=== PATIENT | female | born 1940 | race Caucasian/White ===

== ENCOUNTER → 2019-09-05 09:23 | Outpatient (CLI) | payer MEDICARE ==
[2012-01-16 12:06] VITALS: BMI 33.7
[~2019-09-05 09:23] MED LIST: AVAPRO300 MG PO; DILTIAZEM 24HR240 M4 PO; GLUCOTROL 5 MG T5 MG PO; NEURONTIN 300300 MG PO; OXYBUTYNIN CHLOR5 MG PO; ZOLOFT100 MG PO
[2019-09-25 12:54] VITALS: BMI 29.7
== END | disposition home or self-care (01) ==
LOC: D.HCCARDIO 09:23
PROVIDERS: ATTEND Internal Medicine Cardiovascular Disease
DX: I25.10 Atherosclerotic heart disease of native coronary artery without angina pectoris (principal)

== ENCOUNTER 2019-09-25 11:05 | Outpatient (CLI) | payer MEDICARE ==
[~2019-09-25] VITALS: Ht 162.6 cm; Wt 78.6 kg
--- NOTE | ~2019-09-25 | HEMODYNAMI ---
PATIENT:KESHA ROSE MEDICAL RECORD: [id number] : 44 LOCATION:[facility] ADMISSION DATE: 09/25/19 Generatedon:09/25/201915:24 Patient name: KESHA ROSE Patient #: [id number] SSN: [id number] : 1940 Date of study: 09/25/2019 Page: Of Hemodynamic Procedure Report Patient Data Patient Demographics Procedure consent was obtained First Name: KESHA Gender: Female Last Name: MILTON : 1940 Patient #: [id number] Age: 79 year(s) Race: SSN: [id number] Additional ID: [id number] Contact details [address]: [address] [place] [address] rd State: [place] City: [place] Zip code: [address] Past Medical History Allergies: No known allergies Admission Admission Data Admission Date: 09/25/2019 Admission Time: 11:05 Arrival Date: 09/25/2019 Arrival Time: 0:00 Admit Source: Other Insurance Payor: Private health insurance [facility] #: [id number] Height (in.): 64 BSA: 1.83 (m2) Height (cm.): 162.56 BMI: 29.52 (kg/m2) Weight (lbs.): 171.96 Weight (kg.): 78 Lab Results Lab Result Date: 09/25/2019 Lab Result Time: 0:00 Biochemistry Name Units Result Min Max BUN mg/dl 25 --(----)-* 7 18 Creatinine mg/dl 1.4 --(----)*- 0.6 1.3 eGFR ml/min 39 *-(----)-- 90 120 NONAFRICAN CBC Name Units Result Min Max Hematocrit % 42 --(*---)-- 42 54 Hemoglobin g/dl 14.3 --(*---)-- 13.5 17.5 Procedure Procedure Types Cath Procedure Diagnostic Procedure [facility] w/Coron[facility] Procedure Description Procedure Date Procedure Date: 09/25/2019 Procedure Start Time: 15:06 Procedure End Time: 15:22 Procedure Staff Name Function Gregory Peacock MD Performing Physician Veronique Pavon RT Monitor Naa Shultz RT Monitor Timur Gutierrez RN Nurse Dora Graham RT Scrub Indication Angina Procedure Data Cath Procedure Fluoroscopy Diagnostic fluoroscopy Total fluoroscopy Time: 2 time: 2 min min Diagnostic fluoroscopy Total fluoroscopy dose: 451 dose: 451 mGy mGy Contrast Material Contrast Material Type Amount (ml) Isovue 300 65 Entry Location Entry Primary Successful Side Size Upsize Upsize Entry Closure Bermudez ccessful Closure Location (Fr) 1 (Fr) 2 (Fr) Remarks Device Remarks Radial Right 6 Fr Mechanical artery Short Compression Estimated blood loss: 5 ml Diagnostic catheters Device Type Used For End Catheter Placement DIAGNOSTIC [place] 110cm 5 Procedure Fr catheter ([id number]) Procedure Complications No complications Procedure Medications Medication Administration Route Dosage Oxygen etCO2 Nasal cannula 2 l/min Lidocaine 2% added to field 20 Heparin Flush Bag added to field 2 bags (1000units/500ml NS) 0.9% NaCl I.V. 100 ml/hr Radial Cocktail I.A. 1 syringe (Verapamil 2mg/Nitro 400mcg/Heparin 1500units) Versed I.V. 1 mg Fentanyl I.V. 50 mcg Versed I.V. 1 mg Fentanyl I.V. 50 mcg Versed I.V. 1 mg Hemodynamics Rest BSA: 1.83 (m2) HGB: 14.3 (g/dl) O2 Consumption: Estimated: 168.69 (ml/min) O2 Co nsumption indexed: Estimated:92.18 (ml/min/m) Heart Rate: 74 (bpm) Pressure Samples Time Site Value (mmHg) Purpose Heart Use Rate(bpm) 15:09 LV 174/-9,3 Snapshot 88 Gradients Valve Time Site Site Mean SEP/DFP Peak To Heart Use 1 2 (mmHg) (sec/min) Peak Rate (mmHg) (bpm) Aortic 15:10 LV AO 87 Snapshots Pre Cath Intra NCS Post Cath Vital Signs Time Heart Resp SPO2 etCO2 NIBP (mmHg) Rhythm Pain Sedation Rate (ipm) (%) (mmHg) Status Level (bpm) 14:54:27 77 14 97 13.4 178/88(155) NSR 0 (11) 10(A) , No pain 14:58:45 84 15 94 0 170/88(141) NSR 0 (11) 10(A) , No pain 15:03:05 78 14 96 31.5 164/83(128) NSR 0 (11) 10(A) , No pain 15:07:25 78 12 94 35.2 167/82(134) NSR 0 (11) 9(A) , No pain 15:11:43 85 11 95 36.7 142/75(116) NSR 0 (11) 9(A) , No pain 15:15:59 85 21 93 29.2 148/75(107) NSR 0 (11) 9(A) , No pain 15:20:09 84 13 96 15 152/70(115) NSR 0 (11) 10(A) , No pain Medications Time Medication Route Dose Verified Delivered Reason Notes Effectiveness by by 14:57:12 Oxygen etCO2 2 l/min Gregory Buffie used for Nasal Ayush Gutierrez RN procedure cannula 14:57:19 Lidocaine 2% added 20ml Gregory Gregory for local to vial Ayush Peacock MD anesthetic field 14:57:25 Heparin Flush added 2 bags Gregory Gregory used for Bag to Ayush Peacock MD procedure (1000units/500ml field NS) 14:57:32 0.9% NaCl I.V. 100 Gregory Buffie Per ml/hr Ayush Gutierrez RN physician 15:04:37 Versed I.V. 1 mg Gregory Buffie for sedation Ayush Gutierrez RN 15:04:42 Fentanyl I.V. 50 mcg Gregory Buffie for sedation Ayush Gutierrez RN 15:08:28 Radial Cocktail I.A. 1 Gregory Gregory for (Verapamil syringe Ayush Peacock MD vasodilation 2mg/Nitro 400mcg/Heparin 1500units) 15:08:33 Versed I.V. 1 mg Gregory Buffie for sedation Ayush Gutierrez RN 15:08:37 Fentanyl I.V. 50 mcg Gregory Buffie for sedation Ayush Gutierrez RN 15:11:51 Versed I.V. 1 mg Gregory Buffie for sedation Ayush Gutierrez RN Procedure Log Time Note 14:32:41 Informed consent obtained and on chart 14:33:27 Diagnostic Cath Status : Elective 14:39:26 Indication : Angina 14:39:43 Procedure Status Elective Heart Cath (OP). 14:39:46 Gregory Peacock MD sent for patient. Start room use. 14:39:49 Time tracking: Regular hours (M-F 7:00 - 5:00) 14:39:58 Plan of Care:Hemodynamics will remain stable., Cardiac rhythm will remain stable., Comfort level will be maintained., Respiratory function will remain adequate., Patient/ family verbilizes understanding of procedure., Procedure tolerated without complication., Recovers from procedure without complications.. 14:45:21 Patient received from Pre/Post Procedure Room to CCL 2 Alert and oriented. Tansferred to table in Supine position. 14:45:24 Warm blankets applied, and ana hugger turned on for patient comfort. 14:45:24 Correct patient and procedure confirmed by team. 14:45:26 ECG and BP/O2 sat monitors applied to patient. 14:50:18 Patient Height : 64 inches 14:50:34 Patient Weight : 171.96 lbs 14:50:38 Admit Source: Other 14:50:41 Arrival Date: 09/25/2019 12:00:00 AM 14:51:02 Insurance Payor : Private health insurance 14:52:55 Lab Result : Creatinine 1.4 mg/dl 14:52:55 Lab Result : BUN 25 mg/dl 14:52:55 Lab Result : Hematocrit 42 % 14:52:55 Lab Result : Hemoglobin 14.3 g/dl 14:52:55 Lab Result : eGFR NONAFRICAN 39 ml/min 14:53:16 Vital chart was started 14:53:17 Baseline sample Acquired. 14:53:24 Rhythm: sinus rhythm 14:53:30 Full Disclosure recording started 14:53:31 - 14:53:37 H&P Date Dictated: 09/25/2019 H&P Addendum completed by physician on day of procedure. (MUST COMPLETE FOR ALL OUTPATIENTS), New H&P dictated by physician.. 14:53:39 Pre-procedure instructions explained to patient. 14:53:40 Pre-op teaching completed and patient verbalized understanding. 14:54:56 Family in patients room. 14:55:00 Patient NPO since Midnight. 14:55:11 Patient allergic to PENICILLINS/TRICLOSAN 14:55:18 Is the patient allergic to Iodine/contrast media? No. 14:55:20 Was the patient premedicated? Yes 14:55:23 Is patient on blood thinner?No 14:55:40 Patient diabetic? Yes. 14:55:43 If diabetic: On Metformin? No 14:55:47 ----Pre-sedation anethsthesia assessment.---- 14:55:51 Previous problem with sedation/anesthesia? No ? 14:55:54 Snore? Yes 14:55:56 Sleep apnea? No 14:55:59 Deviated septum? No 14:56:00 Opens mouth fully? Yes 14:56:02 Sticks out tongue? Yes 14:56:06 Airway obstruction? No ? 14:56:11 Dentures? No ? 14:56:32 IV patent on arrival in left forearm with 0.9% NaCl at [facility]. 14:56:45 Pre procedure: right dorsailis pedis pulse 1+ Palpable, but thready & weak; easily obliterated 14:56:57 Lab results completed and on chart. 14:57:05 Stress Test: yes; abnormal ANTERIOR/ LATERAL 14:57:12 Oxygen 2 l/min etCO2 Nasal cannula was administered by Timur Gutierrez RN; used for procedure; Verbal order read back and verified. 14:57:19 Lidocaine 2% 20ml vial added to field was administered by Gregory Peacock MD ; for local anesthetic; Verbal order read back and verified. 14:57:25 Heparin Flush Bag (1000units/500ml NS) 2 bags added to field was administered by Gregory Peacock MD; used for procedure; Verbal order read back and verified. 14:57:32 0.9% NaCl 100 ml/hr I.V. was administered by Timur Gutierrez RN; Per physician; Verbal order read back and verified. 14:59:07 Risk of Mortality: .1 14:59:12 Risk of blood transfusion: 2.0 14:59:18 Risk of AMANDA: 0.7 14:59:49 Right Radial & Right Groin area was prepped with chlora-prep and draped in sterile fashion 14:59:51 Alarms reviewed by RBeatrice N. 14:59:52 Sharps counted by scrub and verified by R.N. 15:03:00 --------ALL STOP TIME OUT------ 15:03:01 Final Timeout: patient, procedure, and site verified with staff and physician. All members of the team are in agreement. 15:03:02 Right Radial & Right Groin site verified by team. 15:03:05 Fire Safety Assessment: A--An alcohol-based skin anteseptic being used preoperatively., C--Open oxygen or nitrous oxide is being used., D--An ESU, laser, or fiber-optic light is being used. 15:03:08 Physical assessment completed. ASA score P 2 - A patient with mild systemic disease as per Gregory Peacock MD. 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 15:03:19 Maximum allowable contrast dose (3.7 X eGFR X 0.75)108 ml. 15:03:23 Sedation plan: IV Moderate Sedation Medication:Versed, Fentanyl 15:03:33 Use device set Radial Dx or PCI 15:03:34 ACIST Syringe (11800) opened to sterile field. 15:03:37 Bag Decanter () opened to sterile field. 15:03:38 ACIST Hand Control (26649) opened to sterile field. 15:03:38 ACIST Manifold (98092) opened to sterile field. 15:03:38 Tegaderm 4 x 4 (1626W) opened to sterile field. 15:03:40 Medline Cath Pack ([id number]) opened to sterile field. 15:03:41 Novatris Wrist Support (536442521) opened to sterile field. 15:03:42 NEEDLE Cook 21G 4cm Radial (T07299) opened to sterile field. 15:03:42 EMERALD Guide Wire (794-893) opened to sterile field. 15:03:43 SHEATH 6FR RAIN (7572977) opened to sterile field. 15:04:37 Versed 1 mg I.V. was administered by Timur Gutierrez RN; for sedation; Verbal order read back and verified. 15:04:42 Fentanyl 50 mcg I.V. was administered by Timur Gutierrez RN; for sedation; Verbal order read back and verified. 15:05:13 Zero performed for pressure channel P1 15:05:58 Procedure started. 15:06:18 Local anesthetic to right radial artery with Lidocaine 2% by Gregory Peacock MD.INITIAL ACCESS ONLY 15:07:16 Zero performed for pressure channel P1 15:07:20 Zero performed for pressure channel P1 15:07:35 A 6 Fr Short sheath was inserted into the Right Radial artery 15:08:23 A DIAGNOSTIC [place] 110cm 5 Fr catheter (255229) was advanced over the wire and used for Procedure. 15:08:28 Radial Cocktail (Verapamil 2mg/Nitro 400mcg/Heparin 1500units) 1 syring e I.A. was administered by Gregory Peacock MD; for vasodilation; Verbal order read back and verified. 15:08:33 Versed 1 mg I.V. was administered by Timur Gutierrez RN; for sedation; Verbal order read back and verified. 15:08:37 Fentanyl 50 mcg I.V. was administered by Timur Gutierrez RN; for sedation; Verbal order read back and verified. 15:09:02 LV gram done using GORMAN 15:09:08 Injector settings: Ml/sec: 5, Volume: 15, 15:10:06 LV hemodynamics recorded. 15:10:15 EF : 60 % 15:10:55 LCA angiography performed. 15:11:02 Injector settings: Ml/sec: 3, Volume: 6, 15:11:51 Versed 1 mg I.V. was administered by Timur Gutierrez RN; for sedation; Verbal order read back and verified. 15:12:35 RCA angiography performed. 15:12:56 Injector settings: Ml/sec: 3, Volume: 6, 15:13:06 ACCDominant side:Right 15:17:56 Catheter removed. 15:18:00 ZEPHYR REGULAR TR BAND (522637) opened to sterile field. 15:18:17 Procedure ended.(Physican Out) 15:18:43 Sheath removed intact; hemostasis achieved with Mechanical Compression to the Right Radial artery. 15:19:11 Contrast amount:Isovue 300 65ml. 15:19:15 Maximum allowable dose exceeded? No. 15:19:26 Fluoroscopy time 02.00 minutes. ::35 Fluoroscopy dose: 451 mGy 15:19:35 Flurop Dose total: 451 15:19:46 Dose Area Product 23178 mGy/cm. 15:19:49 Sharps counted by scrub and verified by R.N. 15:19:57 Kaiser band inflated with 10cc of air. 15:20:01 Insertion/operative site no bleeding no hematoma. 15:20:08 Post right radial artery:stable 15:20:24 Post Procedure Pulses reassessed and unchanged 15:20:29 Post-procedure physical assessment completed. ASA score P 2 - A patient with mild systemic disease as per Gregory Peacock MD. 15:20:34 Post procedure rhythm: unchanged. 15:20:39 Estimated blood loss: 5 ml 15:20:42 Post procedure instruction explained to patient.Patient verbalizes understanding. 15:20:43 Patient needs reinforcement of post procedure teaching. 15:21:15 Procedure and supply charges have been captured, reviewed, submitted an d are correct. 15:22:23 Procedure Complication : No complications 15:22:27 Vital chart was stopped 15:22:32 [facility] Findings: MVD- MD will discuss options w/ pt 15:22:36 Operative report dictated upon procedure completion. 15:22:37 See physician's report for complete and final results. 15:22:40 Report given to Pre/Post Procedure Room. 15:22:45 Patient transfered to Pre/Post Procedure Room with Stretcher. 15:22:48 Procedure ended. 15:22:48 Full Disclosure recording stopped 15:22:55 End room use (Document Last) Device Usage Item Name Manufacture Quantity Catalog Hospital Part Current Minima l Lot# / Number Charge Number Stock Stock Serial# Code ACIST Acist 1 74141 821250 001270 [id number] 20 Syringe Medical (60700) Systems Inc Bag Microtek 1 845446 79342 866630 5 Decanter Medical Inc. () ACIST Hand Acist 1 43881 302425 486312 963100 5 Control Medical (30348) Systems Inc ACIST Acist 1 65572 591793 789895 969877 5 Manifold Medical (58708) Systems Inc Tegaderm 4 3M 1 1626W 395982 939954 749837 5 x 4 (1626W) Medline Medline 1 [id number] 29348 038398 5 Cath Pack ([id number]) MBrace Advanced 1 140-0250-00 755043 69721 865818 5 Wrist Vascular Support Dynamics (104940946) NEEDLE Cook Cook Medical 1 [id number] 413027 661978 234621 5 21G 4cm Radial (N55904) EMERALD Cardinal 1 502455 406001 238245 463124 5 Guide Wire Health (155-455) SHEATH 6FR Cardinal 1 4595294 843128 2536050 372179 5 RAIN Health (5515210) DIAGNOSTIC Terumo 1 40-0893 639649 404787 448358 5 [place] 110cm 5 Fr catheter (364798) ZEPHYR Cardinal 1 001701 096153 8469864 035488 5 REGULAR TR Health BAND (700203) Signature Audit [place] Stage Time Signature Unsigned Intra-Procedure 09/25/2019 Naa 3:23:33 PM Lexii GALLARDO(R) (CV) Intra-Procedure 09/25/2019 Timur Gutierrez RN 3:24:01 PM Intra-Procedure 09/25/2019 Gregory Peacock MD 3:24:42 PM Signatures Performing Physician : Signature : Gregory Peacock MD Date : Time : Monitor : Veronique Pavon Signature : RT Date : Time : Monitor : Naa Signature : Lexii RT Date : Time : Nurse : Timur Gutierrez RN Signature : Date : Time : [facility] [address] [place] [address]
[2019-09-25 12:54] VITALS: BP 183/85; Ht 162.6 cm; Wt 78.6 kg
[2019-09-25 13:24] LABS: HEMOGLOBIN 14.3 g/dL (12-16); MCH 27.9 pg (26.0-34.0); MCV 81.9 fL (80.0-100.0); MEAN PLATELET VOLUME 9.5 fL (7.4-10.4); RBC 5.13 10x6/uL (4.00-5.40); RDW 13.3 % (11.5-14.5); WBC 8.1 10x3/uL (4.8-10.8)
[2019-09-25 13:25] LABS: ALT (SGPT) 20 U/L (10-68); CALC OSMOLALITY 287 mosm/kg (275-300); CALCIUM 10.2 mg/dL (8.5-10.1); CHLORIDE - SERUM 107 mmol/L (98-107); CHOL - HDL RATIO 7.1 ratio (2.3-4.1); CHOLESTEROL, TOTAL 275 mg/dL (0-200); CREATININE - SERUM 1.4 mg/dL (0.6-1.3); GLUCOSE 117 mg/dL (74-106); HDL CHOLESTEROL 39 mg/dL (32-96); PLATELET COUNT 187 10x3/uL (130-400); SODIUM 142 mmol/L (136-145); TRIGLYCERIDE 535 mg/dL (30-200); UREA NITROGEN 25 mg/dL (7-18); eGFR NON AFRICAN AMERICAN 39 mL/min (90-120)
[2019-09-25] MEDS ORDERED: DILTIAZEM 24HR240 M4 PO (13:26)
[2019-09-25] MEDS ORDERED: AVAPRO300 MG PO (13:26)
[2019-09-25] MEDS ORDERED: ZOLOFT100 MG PO (13:27)
[2019-09-25] MEDS ORDERED: GLUCOTROL 5 MG T5 MG PO (13:28)
[2019-09-25] MEDS ORDERED: OXYBUTYNIN CHLOR5 MG PO (13:29)
[2019-09-25] MEDS ORDERED: NEURONTIN 300300 MG PO (13:30)
--- NOTE | 2019-09-25 15:15 | NUR ---
RIGHT WRIST Z BAND IN PLACE. NO BLEEDING/HEMATOMA NOTED. VSS AT THIS TIME. CALL LIGHT WITHIN REACH.
--- NOTE | 2019-09-25 15:30 | NUR ---
MONITORING INITIATED. DR GUZMAN IN ROOM TALKING W PT AND ON PT ARRIVAL TO ROOM. HR 78, BP 170/66, RR 14, SAT 93%, PLACED ON 2LNC. R WRIST CDI, NO HEMATOMA OR BLEEDING. WIGGLES FINGERS, DENIES NUMBNESS.
--- NOTE | 2019-09-25 15:45 | NUR ---
RIGHT WRIST Z BAND IN PLACE. NO BLEEDING/HEMATOMA NOTED. CALL LIGHT WITHIN REACH. VSS. FAMILY AT BEDSIDE.
--- NOTE | 2019-09-25 16:15 | NUR ---
PT RESTING COMFORTABLY. VSS. RIGHT WRIST Z BAND IN PLACE. NO BLEEDING/HEMATOMA NOTED. CALL LIGHT WITHIN REACH. FAMILY AT BEDSIDE.
--- NOTE | 2019-09-25 17:00 | NUR ---
PT SAT UP AND GIVEN SANDWICH TRAY AND DRINK. DENIES NAUSEA AT THIS TIME. VSS. RIGHT WRIST Z BAND IN PLACE. ATTEMPTED TO REMOVED 2cc OF AIR FROM Z BAND. BLEEDING NOTED. REPLACED AIR AND WILL HOLD OFF WEANING AT THIS TIME.
--- NOTE | 2019-09-25 17:30 | NUR ---
2cc OF AIR REMOVED FROM Z BAND. NO BLEEDING/HEMATOMA NOTED. CALL LIGHT WITHIN REACH. VSS. PT TOLERATED FOOD AND DRINK. DENIES NAUSEA/PAIN AT THIS TIME.
--- NOTE | 2019-09-25 17:50 | NUR ---
3cc OF AIR REMOVED FROM Z BAND. TOLERATING WELL. NO BLEEDING/HEMATOMA NOTED. CALL LIGHT WITHIN REACH.
--- NOTE | 2019-09-25 18:05 | NUR ---
3cc OF AIR REMOVED FROM Z BAND. NO BLEEDING/HEMATOMA NOTED. CALL LIGHT WITHIN REACH. VSS.
--- NOTE | 2019-09-25 18:15 | NUR ---
PIV D/C'D WITH CATH TIP INTACT. TOLERATED WELL. PT UP AND DRESSED WITHOUT ASSISTANCE. AMBULATED TO RESTROOM. VOIDED WITHOUT DIFFICULTY. Z BAND REMOVED AND DRESSING APPLIED. NO BLEEDING/HEMATOMA NOTED.
--- NOTE | 2019-09-25 18:20 | NUR ---
DISCUSSED DISCHARGE INSTRUCTIONS WITH PT AND PT'S FAMILY. THEY VOICED UNDERSTANDING.
--- NOTE | 2019-09-25 18:30 | NUR ---
RIGHT WRIST DRESSING C/D/I. NO S/S OF HEMATOMA NOTED. RIGHT WRIST BRACE IN PLACE. PT TAKEN OUT TO VEHICLE BY WHEELCHAIR. NO S/S OF DISTRESS NOTED. ALL BELONGINGS AND PAPERWORK IN HAND.
== END 2019-09-25 18:30 | disposition home or self-care (01) ==
LOC: D.CATH 11:05
PROVIDERS: ATTEND Internal Medicine Cardiovascular Disease
DX: I25.119 Atherosclerotic heart disease of native coronary artery with unspecified angina pectoris (principal); R94.30 Abnormal result of cardiovascular function study, unspecified

== ENCOUNTER 2019-10-28 10:48 | Outpatient (CLI) | payer MEDICARE, OTHER ==
[~2019-10-28] VITALS: Ht 160 cm; Wt 78.6 kg
--- NOTE | ~2019-10-28 | HEMODYNAMI ---
PATIENT:KESHA ROSE MEDICAL RECORD: [id number] : 44 LOCATION:[facility] ADMISSION DATE: 10/28/19 Generatedon:10/28/201913:23 Patient name: KESHA ROSE Patient #: [id number] SSN: [id number] : 1940 Date of study: 10/28/2019 Page: Of Hemodynamic Procedure Report Patient Data Patient Demographics Procedure consent was obtained First Name: KESHA Gender: Female Last Name: MILTON : 1940 Patient #: [id number] Age: 79 year(s) Race: SSN: [id number] Additional ID: [id number] Contact details [address]: [address] [place] [address] rd State: [place] City: [place] Zip code: [address] Past Medical History Allergies Allergen Reaction Date Comments Reported Other allergy 10/28/2019 PCN, TRICLOSAN Admission Admission Data Admission Date: 10/28/2019 Admission Time: 10:48 Arrival Date: 10/28/2019 Arrival Time: 0:00 Height (in.): 63 BSA: 1.82 (m2) Height (cm.): 160.02 BMI: 30.65 (kg/m2) Weight (lbs.): 173 Weight (kg.): 78.47 Lab Results Lab Result Date: 10/28/2019 Lab Result Time: 0:00 Biochemistry Name Units Result Min Max BUN mg/dl 17 --(---*)-- 7 18 Creatinine mg/dl 1.2 --(---*)-- 0.6 1.3 eGFR ml/min 46 *-(----)-- 90 120 NONAFRICAN CBC Name Units Result Min Max Hematocrit % 39 *-(----)-- 42 54 Hemoglobin g/dl 13.2 -*(----)-- 13.5 17.5 Procedure Procedure Types Cath Procedure Diagnostic Procedure Sedation Charges Moderate Sedation up to 15 minutes PCI Procedure Coronary Stent Coronary Stent Initial Hemochron ACT Test Procedure Description Procedure Date Procedure Date: 10/28/2019 Procedure Start Time: 12:53 Procedure Staff Name Function Gregory Peacock MD Performing Physician Veronique Pavon RT Monitor Timur Gutierrez RN Nurse Dora Graham RT Scrub Naa Shultz RT Monitor Procedure Data Cath Procedure Fluoroscopy Diagnostic fluoroscopy Total fluoroscopy Time: 4.5 time: 4.5 min min Diagnostic fluoroscopy Total fluoroscopy dose: 547 dose: 547 mGy mGy Contrast Material Contrast Material Type Amount (ml) Isovue 370 101 Entry Location Entry Primary Successful Side Size Upsize Upsize Entry Closure Succes sful Closure Location (Fr) 1 (Fr) 2 (Fr) Remarks Device Remarks Femoral Right 6 Fr Exoseal artery Short Estimated blood loss: 10 ml Procedure Complications No complications Procedure Medications Medication Administration Route Dosage Oxygen etCO2 Nasal cannula 2 l/min Lidocaine 2% added to field 20 Heparin Flush Bag added to field 2 bags (1000units/500ml NS) 0.9% NaCl I.V. 100 ml/hr Versed I.V. 1 mg Fentanyl I.V. 50 mcg Versed I.V. 1 mg Fentanyl I.V. 50 mcg Heparin Bolus I.V. 7500 units Plavix P.O. 600 mg Hemodynamics Rest BSA: 1.82 (m2) O2 Consumption: Estimated: 163.7 (ml/min) O2 Consumption indexed: Estimated:89.95 (ml/min/m) Heart Rate: 68 (bpm) Snapshots Pre Cath Intra NCS Post Cath Vital Signs Time Heart Resp SPO2 etCO2 NIBP (mmHg) Rhythm Pain Sedation Rate (ipm) (%) (mmHg) Status Level (bpm) 12:41:16 70 23 96 0 161/76(129) NSR 0 (11) 10(A) , No pain 12:45:43 67 10 95 0 164/75(128) NSR 0 (11) 10(A) , No pain 12:50:07 67 11 98 0 161/69(123) NSR 0 (11) 10(A) , No pain 12:54:31 69 14 97 0 158/69(118) NSR 0 (11) 9(A) , No pain 12:58:55 69 19 94 42.7 160/70(126) NSR 0 (11) 9(A) , No pain 13:03:20 69 14 93 42.7 154/63(112) NSR 0 (11) 9(A) , No pain 13:07:44 73 19 98 25.5 149/65(130) NSR 0 (11) 9(A) , No pain 13:12:04 78 10 98 31.5 146/63(121) NSR 0 (11) 10(A) , No pain 13:16:26 75 12 98 25.5 153/71(118) NSR 0 (11) 10(A) , No pain Medications Time Medication Route Dose Verified Delivered Reason Notes Effectiveness by by 12:43:26 Oxygen etCO2 2 Gregory Buffie used for Nasal l/min Ayush Gutierrez RN procedure cannula 12:43:33 Lidocaine 2% added 20ml Gregory Gregory for local to vial Ayush Peacock MD anesthetic field 12:43:40 Heparin Flush added 2 Gregory Gregory used for Bag to bags Ayush Peacock MD procedure (1000units/500ml field NS) 12:43:49 0.9% NaCl I.V. 100 Gregory Buffie Per physician ml/hr Ayush Gutierrez RN 12:51:47 Versed I.V. 1 mg Gregory Buffie for sedation Ayush Gutierrez RN 12:51:53 Fentanyl I.V. 50 Gregory Buffie for sedation mcg Ayush Gutierrez RN 12:54:57 Versed I.V. 1 mg Gregory Buffie for sedation Ayush Gutierrez RN 12:55:01 Fentanyl I.V. 50 Gregory Buffie for sedation mcg Ayush Gutierrez RN 12:57:23 Heparin Bolus I.V. 7500 Gregory Buffie for verif ied units Ayush Gutierrez RN anticoagulation with dr peacock 13:14:56 Plavix P.O. 600 Gregory Buffie for mg Ayush Gutierrez RN antiplatelet therapy Procedure Log Time Note 12:16:33 Informed consent obtained and on chart 12:17:42 Procedure Status Elective Heart Cath (OP), PCI. 12:17:44 Time tracking: Regular hours (M-F 7:00 - 5:00) 12:17:48 Plan of Care:Hemodynamics will remain stable., Cardiac rhythm will remain stable., Comfort level will be maintained., Respiratory function will remain adequate., Patient/ family verbilizes understanding of procedure., Procedure tolerated without complication., Recovers from procedure without complications.. 12:18:49 H&P Date Dictated: 10/18/2019 Within 30 days and on chart., H&P Addendum completed by physician on day of procedure. (MUST COMPLETE FOR ALL OUTPATIENTS). 12:19:02 Patient allergic to Other allergyPCN, TRICLOSAN 12:20:40 Lab Result : BUN 17 mg/dl 12:20:40 Lab Result : Creatinine 1.2 mg/dl 12:20:40 Lab Result : eGFR NONAFRICAN 46 ml/min 12:20:40 Lab Result : Hemoglobin 13.2 g/dl 12:20:40 Lab Result : Hematocrit 39 % 12:24:02 Risk of Mortality: .1 12:24:05 Risk of blood transfusion: .4 12:24:08 Risk of AMANDA: .3 12:25:20 Timur Gutierrez RN sent for patient. Start room use. 12:32:15 Patient Weight : 173 lbs 12:32:18 Patient Height : 63 inches 12:32:21 Arrival Date: 10/28/2019 12:00:00 AM 12:33:59 Patient received from Pre/Post Procedure Room to CCL 1 Alert and oriented. Tansferred to table in Supine position. 12:39:56 Warm blankets applied, and ana hugger turned on for patient comfort. 12:39:56 Correct patient and procedure confirmed by team. 12:39:56 ECG and BP/O2 sat monitors applied to patient. 12:39:58 Vital chart was started 12:40:03 Rhythm: sinus rhythm 12:40:03 Full Disclosure recording started 12:40:04 Pre-procedure instructions explained to patient. 12:40:04 Pre-op teaching completed and patient verbalized understanding. 12:40:06 Family in patients room. 12:40:07 Patient NPO since Midnight. 12:40:09 Is the patient allergic to Iodine/contrast media? No. 12:40:10 Is patient on blood thinner?No 12:40:50 Patient diabetic? Yes. 12:40:52 If diabetic: On Metformin? No 12:40:56 Patient not . Patient is over age 55. 12:41:10 Previous problem with sedation/anesthesia? No ? 12:41:12 Snore? Yes 12:41:14 Sleep apnea? No 12:41:15 Deviated septum? No 12:41:16 Opens mouth fully? Yes 12:41:16 Sticks out tongue? Yes 12:41:22 Airway obstruction? No ? 12:41:25 Dentures? No ? 12:41:28 Pre procedure: right dorsailis pedis pulse 1+ Palpable, but thready & weak; easily obliterated 12:41:31 Patient pain scale 0/10 ?. 12:41:37 IV patent on arrival in left forearm with 0.9% NaCl at [facility]. 12:41:41 Lab results completed and on chart. 12:41:46 Right groin area was prepped with chlora-prep and draped in sterile fashion 12:41:47 Alarms reviewed by R. N. 12:41:47 Sharps counted by scrub and verified by R.N. 12:42:02 Use device set CATH PACK 12:42:03 ACIST Syringe (39606) opened to sterile field. 12:42:03 ACIST Hand Control (60465) opened to sterile field. 12:42:04 ACIST Manifold (33262) opened to sterile field. 12:42:04 Medline Cath Pack ([id number]) opened to sterile field. 12:42:04 Bag Decanter (2002S) opened to sterile field. 12:42:05 EMERALD Guide Wire (373-915) opened to sterile field. 12:42:23 SHEATH 6FR [place] (UBR812) opened to sterile field. 12:42:23 INFLATOR Merit BasixCompak (GL1200) opened to sterile field. 12:42:24 TUBING High Pressure Extension Tubing (Ayush) ([id number]) opened to sterile field. 12:42:28 BMW 300cm Straight [place] 2 wire ([id number]) opened to sterile field. 12:43:26 Oxygen 2 l/min etCO2 Nasal cannula was administered by Timur Gutierrez RN; used for procedure; Verbal order read back and verified. 12:43:33 Lidocaine 2% 20ml vial added to field was administered by Gregory Peacock MD; for local anesthetic; Verbal order read back and verified. 12:43:40 Heparin Flush Bag (1000units/500ml NS) 2 bags added to field was administered by Gregory Peacock MD; used for procedure; Verbal order read back and verified. 12:43:49 0.9% NaCl 100 ml/hr I.V. was administered by Timur Gutierrez RN; Per physician; Verbal order read back and verified. 12:47:38 Stress Test: no; N/A BRING BACK PCI 12:50:01 --------ALL STOP TIME OUT------ 12:50:02 Final Timeout: patient, procedure, and site verified with staff and physician. All members of the team are in agreement. 12:50:04 Right groin site verified by team. 12:50:08 Fire Safety Assessment: A--An alcohol-based skin anteseptic being used preoperatively., C--Open oxygen or nitrous oxide is being used., D--An ESU, laser, or fiber-optic light is being used. 12:50:19 Physical assessment completed. ASA score P 2 - A patient with mild systemic disease as per Gregory Peacock MD. 12:50:23 3a) 45-59 Moderately reduced kidney function. 12:50:27 Maximum allowable contrast dose (3.7 X eGFR X 0.75)128 ml. 12:50:32 Sedation plan: IV Moderate Sedation Medication:Versed, Fentanyl 12:51:47 Versed 1 mg I.V. was administered by Timur Gutierrez RN; for sedation; Verbal order read back and verified. 12:51:50 Zero performed for pressure channel P1 12:51:53 Fentanyl 50 mcg I.V. was administered by Timur Gutierrez RN; for sedation; Verbal order read back and verified. 12:53:12 Procedure started. 12:53:20 Local anesthetic to right femoral artery with Lidocaine 2% by Gregory Peacock MD.INITIAL ACCESS ONLY 12:53:48 Zero performed for pressure channel P1 12:54:16 Baseline sample Acquired. 12:54:57 Versed 1 mg I.V. was administered by Timur Gutierrez RN; for sedation; Verbal order read back and verified. 12:55:01 Fentanyl 50 mcg I.V. was administered by Timur Gutierrez RN; for sedation; Verbal order read back and verified. 12:55:04 A 6 Fr Short sheath was inserted into the Right Femoral artery 12:55:29 GUIDE 6FR XBLAD 3.5 catheter ([id number]) opened to sterile field. 12:56:00 6 Fr XBLAD3.5 guide catheter was inserted over the wire 12:57:23 Heparin Bolus 7500 units I.V. was administered by Timur Gutierrez RN; for anticoagulation; verified with dr peacock Verbal order read back and verified. 12:58:33 AST453 wire advanced. 12:58:39 Wire advanced across lesion. 12:58:46 ACC Pre-intervention BALJINDER Flow is 3. 12:59:27 Pre PCI Site: [place] mCirc has 90% stenosis. 13:06:20 Place stent Inflation Number: 1 A DAVID RX 3.0 x 12 stent ([id number]) was prepped and advanced across the Mid CX . The stent was deployed at 13 THA for 0:00 (min:sec) . 13:07:20 Stent catheter was removed intact over wire. 13:10:45 Place stent Inflation Number: 2 A DAVID RX 3.0 x 15 stent ([id number]) was prepped and advanced across the Mid CX . The stent was deployed at 13 THA for 0:00 (min:sec) . 13:11:00 Stent catheter was removed intact over wire. 13:11:14 ACC Post-intervention BALJINDER Flow is 3. 13:11:28 Wire removed. 13:11:29 Guide catheter removed. 13:11:41 Post PCI Site: [place] mCirc has 0.% stenosis. 13:12:38 EXOSEAL 6Fr (EX600) opened to sterile field. 13:12:57 Sheath removed intact; hemostasis achieved with Exoseal to the Right Femoral artery. 13:13:01 Procedure ended.(Physican Out) 13:13:54 Contrast amount:Isovue 370 101ml. 13:14:01 Maximum allowable dose exceeded? No. 13:14:13 Fluoroscopy time 04.50 minutes. 13:14:22 Flurop Dose total: 547 13:14:22 Fluoroscopy dose: 547 mGy 13:14:33 Dose Area Product 97876 mGy/cm. 13:14:35 Sharps counted by scrub and verified by R.N. 13:14:40 Insertion/operative site no bleeding no hematoma. 13:14:47 Post-op/insertion site Right Femoral artery dressed using a 4 x 4 and Tegaderm. 13:14:54 Post right femoral artery:stable 13:14:56 Plavix 600 mg P.O. was administered by Timur Gutierrez RN; for antiplatelet therapy; Verbal order read back and verified. 13:14:58 Post Procedure Pulses reassessed and unchanged 13:15:05 Post-procedure physical assessment completed. ASA score P 2 - A patient with mild systemic disease as per Gregory Peacock MD. 13:15:13 Post procedure rhythm: unchanged. 13:15:19 Estimated blood loss: 10 ml 13:15:22 Post procedure instruction explained to patient.Patient verbalizes understanding. 13:15:24 Patient needs reinforcement of post procedure teaching. 13:17:12 Procedure type changed to Cath procedure, Diagnostic procedure, Sedation Charges, Moderate Sedation up to 15 minutes, PCI procedure, Coronary Stent, Coronary Stent Initial, Hemochron ACT Test 13:17:15 Procedure and supply charges have been captured, reviewed, submitted and are correct. 13:18:02 Procedure Complication : No complications 13:18:07 Vital chart was stopped 13:18:13 [facility] Findings: MVD- PCI performed (see procedure note) 13:18:15 Operative report dictated upon procedure completion. 13:18:16 See physician's report for complete and final results. 13:18:23 Report given to Pre/Post Procedure Room. 13:18:29 Patient transfered to Pre/Post Procedure Room with Stretcher. 13:20:33 ACC-PCI Only Patient was given prescriptions, or instructed by Gregory Peacock MD to start/continue the following medications upon discharge: Plavix 13:20:45 ACT drawn and resulted at OUT OF RANGE seconds. (normal therapeutic range 180-240 seconds). 13:20:55 End room use (Document Last) Intervention Summary Intervention Notes Time ActionType Lesion and Equipment Used Action# Pressure Duration Attributes 13:06:20 Place stent Mid CX DAVID RX 3.0 x 1 13 00:00 12 stent ([id number]) 13:10:45 Place stent Mid CX DAVID RX 3.0 x 2 13 00:00 15 stent ([id number]) Device Usage Item Name Manufacture Quantity Catalog Hospital Part [facility] Lot# / Number Charge Number Stock Stock Serial# Code ACIST Syringe Acist 1 59350 [id number] 538618 484642 20 (21921) [employer] Inc ACIST Hand Acist 1 24568 579650 136620 236153 5 Control Medical (05977) Systems Inc ACIST Manifold Acist 1 38453 874278 070697 679896 5 (98575) Medical Systems Inc Medline Cath Medline 1 [id number] 950704 28401 518828 5 Pack ([id number]) Bag Decanter Microtek 1 2001S 414667 65540 032666 5 (2001S) Medical Inc. EMERALD Guide Cardinal 1 502-455 422901 075328 278684 5 Wire (502-455) Health SHEATH 6FR Terumo 1 AZS271 416632 594403 886633 40 [place] (DCF661) INFLATOR Merit Merit 1 HC0782 092105 238347 133494 15 BasixCompak Medical (LL7867) TUBING High Merit 1 [id number] 638023 78915 737538 10 Pressure Medical Extension Tubing (Peacock) ([id number]) BMW 300cm [place] 1 4274709 593755 640540 025508 5 Straight Vascular [place] 2 wire (1258433) GUIDE 6FR Cardinal 1 [id number] 803848 984482 160580 10 XBLAD 3.5 Health catheter ([id number]) DAVID RX 3.0 x Medtronic 1 [id number] 664468 0297114 026995 5 [id number] 12 stent ([id number]) DAVID RX 3.0 x Medtronic 1 [id number] 036444 0571450 086826 5 [id number] 15 stent ([id number]) EXOSEAL 6Fr Cardinal 1 EX600 370553 787030 746437 10 (EX600) Health Signature Audit [place] Stage Time Signature Unsigned Intra-Procedure 10/28/2019 Naa 1:21:25 PM Lexii RT(R) (CV) Intra-Procedure 10/28/2019 Timur Gutierrez RN 1:21:52 PM Intra-Procedure 10/28/2019 Gregory Peacock MD 1:23:16 PM [id number] [place] [address]
[2019-10-28 11:14] VITALS: BP 165/64; Ht 160 cm; Wt 78.6 kg
[2019-10-28 11:41] LABS: ALT (SGPT) 25 U/L (10-68); BASOPHILS 0.2 % (0-2); CALC OSMOLALITY 291 mosm/kg (275-300); CARBON DIOXIDE 25.6 mmol/L (21.0-32.0); CHLORIDE - SERUM 109 mmol/L (98-107); CHOL - HDL RATIO 8.9 ratio (2.3-4.1); CHOLESTEROL, TOTAL 275 mg/dL (0-200); CREATININE - SERUM 1.2 mg/dL (0.6-1.3); GLUCOSE 122 mg/dL (74-106); HDL CHOLESTEROL 31 mg/dL (32-96); HEMOGLOBIN 13.2 g/dL (12-16); IMMATURE GRANULOCYTES 0.3 % (0-5); LYMPHOCYTES 24.1 % (15-50); MCH 28.4 pg (26.0-34.0); MCHC 33.8 g/dL (31.0-37.0); MCV 83.9 fL (80.0-100.0); MEAN PLATELET VOLUME 9.4 fL (7.4-10.4); MONOCYTES 12.6 % (2-11); NEUTROPHILS 58.8 % (40-80); PLATELET COUNT 190 10x3/uL (130-400); POTASSIUM - SERUM 3.9 mmol/L (3.5-5.1); RBC 4.65 10x6/uL (4.00-5.40); RDW 14.2 % (11.5-14.5); SODIUM 145 mmol/L (136-145); TRIGLYCERIDE 421 mg/dL (30-200); UREA NITROGEN 17 mg/dL (7-18); WBC 5.7 10x3/uL (4.8-10.8); eGFR NON AFRICAN AMERICAN 46 mL/min (90-120)
--- NOTE | 2019-10-28 13:29 | NUR ---
PT ARRIVED BY STRETCHER. PLACED ON MONITORS. ASSESSMENT COMPLETED. VSS AT THIS TIME. FAMILY AT BEDSIDE.
[2019-10-28] MEDS ORDERED: BAYER CHEWABLE81 MG PO (13:39)
[2019-10-28] MEDS ORDERED: PLAVIX75 MG PO (13:39)
--- NOTE | 2019-10-28 13:45 | NUR ---
RIGHT GROIN DRESSING C/D/I. NO S/S OF HEMATOMA NOTED. CALL LIGHT WITHIN REACH. FAMILY AT BEDSIDE.
--- NOTE | 2019-10-28 14:15 | NUR ---
RIGHT GROIN DRESSING C/D/I. NO S/S OF HEMATOMA NOTED. CALL LIGHT WITHIN REACH. VSS. FAMILY AT BEDSIDE. DR. GUZMAN ROUNDED AND SPOKE WITH PT AND PT'S FAMILY.
--- NOTE | 2019-10-28 14:45 | NUR ---
RIGHT GROIN DRESSING C/D/I. NO S/S OF HEMATOMA NOTED. CALL LIGHT WITHIN REACH. VSS AT THIS TIME. FAMILY AT BEDSIDE. CALL LIGHT WITHIN REACH.
--- NOTE | 2019-10-28 15:12 | NUR ---
PT RESTING COMFORTABLY. EASILY AROUSED FROM SLEEP. RIGHT GROIN DRESSING C/D/I. NO S/S OF HEMATOMA NOTED. CALL LIGHT WITHIN REACH. VSS. NO NEEDS AT THIS TIME.
--- NOTE | 2019-10-28 15:45 | NUR ---
RIGHT GROIN DRESSING C/D/I. NO S/S OF HEMATOMA NOTED. CALL LIGHT WITHIN REACH. FAMILY AT BEDSIDE. NO NEEDS AT THIS TIME.
--- NOTE | 2019-10-28 16:36 | NUR ---
RIGHT GROIN DRESSING C/D/I. NO S/S OF HEMATOMA NOTED. VSS. HEAD OF BED INC TO 30 DEGREES. TOLERATED WELL. VSS. CALL LIGHT WITHIN REACH. SET UP WITH SANDWICH TRY AND DRINK. DENIES NAUSEA/PAIN AT THIS TIME. FAMILY AT BEDSIDE.
--- NOTE | 2019-10-28 17:01 | NUR ---
RIGHT GROIN DRESSING C/D/I. NO S/S OF HEMATOMA NOTED. PIV D/C'D WITH CATH TIP INTACT. TOLERATED WELL. PT INSTRUCTED TO GET UP AND DRESSED. FAMILY AT BEDSIDE TO ASSIST. CALL LIGHT WITHIN REACH.
--- NOTE | 2019-10-28 17:20 | NUR ---
PT AMBULATED TO RESTROOM. VOIDED WITHOUT DIFFICULTY. STEADY GAIT NOTED. DISCUSSED DISCHARGE INSTRUCTIONS WITH PT AND PT'S FAMILY. THEY VOICED UNDERSTANDING. [facility] HAS BEEN CALLED INTO PHARMACY PER PT REQUEST.
--- NOTE | 2019-10-28 17:25 | NUR ---
PT TAKEN OUT TO VEHICLE BY WHEELCHAIR. NO S/S OF DISTRESS NOTED. ALL BELONGINGS AND PAPERWORK IN HAND.
== END 2019-10-28 17:25 | disposition home or self-care (01) ==
LOC: D.CATH 10:48
PROVIDERS: ATTEND Internal Medicine Cardiovascular Disease
DX: I20.0 Unstable angina (principal); E11.9 Type 2 diabetes mellitus without complications; E78.5 Hyperlipidemia, unspecified

== ENCOUNTER 2020-12-08 05:37 | Inpatient (IN) | payer MEDICARE ==
[2020-12-08] VITALS (20 sets, daily range): BP systolic 120–188; BP diastolic 49–84
[~2020-12-08] VITALS: Ht 152.4 cm; Wt 76.5 kg
--- NOTE | ~2020-12-08 | HEMODYNAMI ---
PATIENT:KESHA ROSE MEDICAL RECORD: [id number] : 44 LOCATION:[facility] [address] [id number] ADMISSION DATE: 12/08/20 Generatedon:110:27 Patient name: KESHA RSOE Patient #: [id number] SSN: [id number] : 1940 Date of study: 12/08/2020 Page: Of Hemodynamic Procedure Report Patient Data Patient Demographics Procedure consent was obtained First Name: KESHA Gender: Female Last Name: MILTON : 1940 Patient #: [id number] Age: 80 year(s) Race: SSN: [id number] Additional ID: [id number] Contact details Address: [address] State: [place] City: [place] Zip code: [address] Past Medical History Allergies Allergen Reaction Date Comments Reported Other allergy 10/28/2019 PCN, TRICLOSAN Admission Admission Data Admission Date: 12/08/2020 Admission Time: 9:24 Room #: D2315 Height (in.): 63 BSA: 1.8 (m2) Height (cm.): 160.02 BMI: 30.11 (kg/m2) Weight (lbs.): 170 Weight (kg.): 77.11 Procedure Procedure Types Cath Procedure Peripheral Cath Diagnostic Procedure Abd/Extremity Renal Renal Unilateral Procedure Description Procedure Date Procedure Date: 12/08/2020 Procedure Start Time: 9:17 Procedure Staff Name Function Jermaine Conrad MD Performing Physician Nathalia Cheney RT Die Storage Clerk Nivia LANCE RN Nurse Abdi Belcher RT Scrub ISABELLA RAMON RT Monitor Procedure Data Cath Procedure Fluoroscopy Diagnostic fluoroscopy Total fluoroscopy Time: 3.7 time: 3.7 min min Diagnostic fluoroscopy Total fluoroscopy dose: 733 dose: 733 mGy mGy Contrast Material Contrast Material Type Amount (ml) Isovue 300 38 Entry Location Entry Primary Successful Side Size Upsize Upsize Entry Closure Succe ssful Closure Location (Fr) 1 (Fr) 2 (Fr) Remarks Device Remarks Femoral Perclose artery ProGlide Diagnostic catheters Device Type Used For End Catheter Placement Angiodynamics SOS OMNI 2 NON B 5FR 65CM catheter ([id number]) Procedure Medications Medication Administration Route Dosage Heparin Flush Bag added to field 2 bags (1000units/500ml NS) Lidocaine 1% added to field 20 Ancef (1Gm/50ml NS) I.V.P.B 1 g Fentanyl I.V. 50 mcg Versed 1 mg Hydralizine I.V. 10 mg Fentanyl I.V. 25 mcg Versed I.V. 0.5 mg Hemodynamics Rest BSA: 1.8 (m2) O2 Consumption: Estimated: 155.09 (ml/min) O2 Consumption indexed: Estimated:86.16 (ml/min/m) Heart Rate: 59 (bpm) Snapshots Pre Cath Intra NCS Post Cath Vital Signs Time Heart Resp SPO2 etCO2 NIBP (mmHg) Rhythm Pain Sedation Rate (ipm) (%) (mmHg) Status Level (bpm) 9:06:29 63 18 100 0 142/65(98) NSR 0 (11) 10(A) , No pain 9:10:41 62 18 100 23.4 158/69(110) NSR 0 (11) 10(A) , No pain 9:15:01 63 13 100 0 161/67(107) NSR 0 (11) 10(A) , No pain 9:19:24 65 15 100 35.6 131/61(80) NSR 0 (11) 10(A) , No pain 9:23:48 65 13 100 29.5 151/65(96) NSR 0 (11) 10(A) , No pain 9:28:02 64 17 100 31.8 163/74(127) NSR 0 (11) 10(A) , No pain 9:32:20 67 10 100 0 170/69(111) NSR 0 (11) 10(A) , No pain 9:36:42 67 9 100 30.2 162/71(114) NSR 0 (11) 10(A) , No pain 9:41:04 73 12 100 25.7 148/69(105) NSR 0 (11) 10(A) , No pain 9:45:20 78 14 100 18.1 148/63(98) NSR 0 (11) 10(A) , No pain 9:49:36 76 15 100 29.5 150/66(105) NSR 0 (11) 10(A) , No pain 9:53:50 79 24 100 31 163/77(114) NSR 0 (11) 10(A) , No pain 9:58:13 78 21 100 25 155/63(125) NSR 0 (11) 10(A) , No pain 10:02:29 77 19 100 0 154/77(119) NSR 0 (11) 10(A) , No pain 10:06:47 78 12 99 0 139/72(91) NSR 0 (11) 10(A) , No pain 10:07:50 80 12 100 28 145/69(98) NSR 0 (11) 10(A) , No pain 10:11:50 0 No Cuff NSR 0 (11) 10(A) , No pain 10:15:49 0 No Cuff NSR 0 (11) 10(A) , No pain 10:19:49 0 No Cuff NSR 0 (11) 10(A) , No pain 10:23:48 0 No Cuff NSR 0 (11) 10(A) , No pain Medications Time Medication Route Dose Verified Delivered Reason Notes Ef fectiveness by by 9:05:05 Heparin Flush added 2 Jermaine Dean used for Bag to bags Houston Conrad procedure (1000units/500ml field MD ALAS NS) 9:05:16 Lidocaine 1% added 20ml Jermaine Dean for local to vial Houston Conrad anesthetic field MD ALAS 9:19:16 Ancef (1Gm/50ml I.V.P.B 1 g Jermaine Boxr Per NS) Houston LANCE physician RN 9:19:25 Fentanyl I.V. 50 Jermaine Boxr for sedation mcg [place] LANCE MD RN 9:19:32 Versed 1 mg Jermaine Boxr for sedation Houston LANCE MD RN 9:36:23 Hydralizine I.V. 10 mg Jermaine Boxr for Houston lim MD RN 9:36:28 Fentanyl I.V. 25 Jermaine Boxr for sedation mcg [place] LANCE MD RN 9:36:34 Versed I.V. 0.5 Jermaine Minner for sedation mg Houston LANCE MD barrel repairer Log Time Note 8:11:34 Patient Height : 63 inches 8:11:39 Patient Weight : 170 lbs 8:12:18 Use device set IR Diagnostic 8:13:01 TUBING Contrast Injection High Pressure ([id number]) opened to sterile field. 8:13:02 SHEATH 5FR [place] (NFT785) opened to sterile field. 8:13:03 Micropuncture VSI 4FR kit opened to sterile field. 8:13:04 BENTSON 145cm wire ([id number]) opened to sterile field. 8:13:04 Tegaderm 4 x 4 (1626W) opened to sterile field. 8:13:05 Sterile Angiographic Pack opened to sterile field. 8:13:06 Bag Decanter (2002S) opened to sterile field. 8:13:08 ACIST Manifold (02496) opened to sterile field. 8:13:09 ACIST Hand Control (39557) opened to sterile field. 8:13:10 ACIST Syringe (09225) opened to sterile field. 8:13:31 A AngiodynamRodin Therapeutics OMNI 2 NON B 5FR 65CM catheter ([id number]) was advanced over the wire and used for . 8:16:59 RENEGADE HI-AILYN microcatheter ([id number]) opened to sterile field. 8:58:59 Time tracking: Regular hours (M-F 7:00 - 5:00) 8:59:07 Plan of Care:Hemodynamics will remain stable., Cardiac rhythm will remain stable., Comfort level will be maintained., Respiratory function will remain adequate., Patient/ family verbilizes understanding of procedure., Procedure tolerated without complication., Recovers from procedure without complications.. 8:59:16 Patient received from ED to IR Alert and oriented. Tansferred to table in Supine position. 8:59:21 Signed procedure consent form obtained from patient. 8:59:38 H&P Date Dictated: 12/08/2020 ER History on chart.. 8:59:40 Pre-procedure instructions explained to patient. 8:59:41 Pre-op teaching completed and patient verbalized understanding. 8:59:48 Family unavailable. 8:59:51 Patient NPO since Midnight. 9:00:18 Is the patient allergic to Iodine/contrast media? No. 9:00:21 Is patient on blood thinner?Yes 9:00:24 Patient diabetic? Yes. 9:00:27 If diabetic: On Metformin? No 9:00:29 - 9:00:31 ----Pre-sedation anethsthesia assessment.---- 9:00:36 Previous problem with sedation/anesthesia? No ? 9:00:40 Snore? No 9:00:44 Sleep apnea? No 9::47 Deviated septum? No 9:00:49 Opens mouth fully? Yes 9:00:52 Sticks out tongue? 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 No ? 9:01:15 Right groin area was prepped with chlora-prep and draped in sterile fashion 9:01:18 Alarms reviewed by Nanda Arceo 9:01:20 - 9:01:32 3b) 30-44 Moderately reduced kidney function. 9:01:41 Fire Safety Assessment: A--An alcohol-based skin anteseptic being used preoperatively., C--Open oxygen or nitrous oxide is being used. 9:02:27 ECG and BP/O2 sat monitors applied to patient. 9:02:45 Baseline sample Acquired. 9:02:52 Baseline sample Acquired. 9:03:07 Full Disclosure recording started 9:03:10 Baseline sample Acquired. 9:05:05 Heparin Flush Bag (1000units/500ml NS) 2 bags added to field was administered by Jermaine Conrad MD; used for procedure; Verbal order read back and verified. 9:05:16 Lidocaine 1% 20ml vial added to field was administered by Jermaine villeda MD; for local anesthetic; Verbal order read back and verified. 9:05:19 Vital chart was started 9:15:38 TRANSEND STEERABLE wire ([id number]) opened to sterile field. 9:15:42 - 9:15:46 Physician arrived 9:15:47 --------ALL STOP TIME OUT------ 9:15:47 Final Timeout: patient, procedure, and site verified with staff and physician. All members of the team are in agreement. 9:16:59 Procedure started. 9:17:03 Local anesthetic to right femoral artery with Lidocaine 1% by Jermaine Conrad MD.INITIAL ACCESS ONLY 9:17:14 Arterial access obtained using ultrasound guidance. 9:19:16 Ancef (1Gm/50ml NS) 1 g I.V.P.B was administered by Nivia LANCE RN; Per physician; Verbal order read back and verified. 9:19:25 Fentanyl 50 mcg I.V. was administered by Nivia LANCE RN; for sedation; Verbal order read back and verified. 9:19:32 Versed 1 mg was administered by Nivia LANCE RN; for sedation; Verbal order read back and verified. 9:23:32 COPILOT Valve Control ([id number]) opened to sterile field. 9:25:41 TORQUE DEVICE PLASTIC .038 ( TD01) opened to sterile field. 9:29:31 COIL HILAL 2.0-2 (N51271) opened to sterile field. 9:34:31 COIL Vortex Kinza 18 3X3 ([id number]) opened to sterile field. 9:34:33 COIL Vortex Kinza 18 3X3 ([id number]) opened to sterile field. 9:36:23 Hydralizine 10 mg I.V. was administered by Nivia LANCE RN; for hypertension; Verbal order read back and verified. 9:36:28 Fentanyl 25 mcg I.V. was administered by Minner CASI RN; for sedation; Verbal order read back and verified. 9:36:34 Versed 0.5 mg I.V. was administered by Nivia LANCE RN; for sedation; Verbal order read back and verified. 9:40:53 PERCLOSE Proglide 6FR ( [id number]) opened to sterile field. 9:42:31 A sheath was inserted into the Femoral artery 9:42:31 Sheath removed intact; hemostasis achieved with Perclose ProGlide to th e Femoral artery. 9:44:03 Procedure ended.(Physican Out) 9:44:42 Fluoroscopy time 03.70 minutes. 9:44:47 Fluoroscopy dose: 733 mGy 9:44:47 Flurop Dose total: 733 9:45:06 Contrast amount:Isovue 300 38ml. 9:45:09 Procedure and supply charges have been captured, reviewed, submitted an d are correct. 9:49:46 Report given to ICU. 10:27:19 Vital chart was stopped Device Usage Item Name Manufacture Quantity Catalog Hospital Part Current Mini mal Lot# / Number Charge Number Stock Stock Serial# Code TUBING [facility] Medical 1 [id number] 676079 152415 5 Contrast Injection High Pressure ([id number]) SHEATH 5FR Terumo 1 [id number] 242108 410725 121199 5 Monroe ([id number]) Micropuncture VSI VASCULAR 1 7266V 202783 650949 5 VSI 4FR kit SOLUTIONS BENTSON 145cm Cook [employer] 1 [id number] 150271 038849 5 wire (Q56687) Tegaderm 4 x 3M 1 1626W 161360 212849 404435 5 4 (1626W) Sterile Cardinal 1 [id number] 131129 619675 5 Angiographic Health Pack Bag Decanter Microtek 1 2001S 438323 41408 938194 5 () Medical Inc. ACIST Acist Medical 1 37172 298983 178624 987519 5 Manifold Systems Inc (94039) ACIST Hand Acist Medical 1 49567 311012 567332 014894 5 Control Systems Inc (33673) ACIST Syringe Acist Medical 1 33395 271450 060492 203741 20 (13450) Systems Inc Angiodynamics Angiodynamics 1 [id number] 477952 23223 996665 5 SOS OMNI 2 NON B 5FR 65CM catheter ([id number]) RENEGADE [place] 1 [id number] 109550 618765 5 HI-AILYN Scientific microcatheter ([id number]) TRANSEND [place] 1 [id number] 251035 688811 5 STEERABLE Scientific wire ([id number]) COPILOT Valve [place] 1 2891710 753695 832736 191636 5 Control Vascular (4802759) TORQUE DEVICE [place] 1 TD01 984414 778377 989863 5 PLASTIC .038 Scientific ( TD01) COIL HILAL [facility] 1 F63794 139300 840378 5 1602799 2.0-2 (H45209) COIL Vortex [facility] 2 [id number] 256497 120773 5 [id number] Kinza 18 11467823 3X3 ([id number]) PERCLOSE [place] 1 66654-714 580472 520628 393918 5 6436522 Proglide 6FR Vascular ( 87173639) Signature Audit [place] Stage Time Signature Unsigned Intra-Procedure 12/08/2020 ISABELLA RAMON RT 10:27:13 AM (R) [facility] [address] [place] [address]
[~2020-12-08 05:37] MED LIST changes: +BAYER CHEWABLE81 MG PO; +PLAVIX75 MG PO
[2020-12-08 06:18] LABS: BASOPHILS 0.1 % (0-2); EOSINOPHILS 0.8 % (0-7); HEMATOCRIT 30.1 % (36.0-48.0); HEMOGLOBIN 10.2 g/dL (12-16); IMMATURE GRANULOCYTES 0.3 % (0-5); LYMPHOCYTE ABS# 1.35 10x3/uL (1.18-3.74); LYMPHOCYTES 8.7 % (15-50); MCH 28.5 pg (26.0-34.0); MCHC 33.9 g/dL (31.0-37.0); MCV 84.1 fL (80.0-100.0); MEAN PLATELET VOLUME 10.1 fL (7.4-10.4); MONOCYTES 7.2 % (2-11); NEUTROPHIL ABS# 12.94 10x3/uL (1.56-6.13); NEUTROPHILS 82.9 % (40-80); RBC 3.58 10x6/uL (4.00-5.40); RDW 13.8 % (11.5-14.5); WBC 15.6 10x3/uL (4.8-10.8)
[2020-12-08 06:24] LABS: CALC OSMOLALITY 293 mosm/kg (275-300); CALCIUM 9.6 mg/dL (8.5-10.1); CARBON DIOXIDE 21.7 mmol/L (21.0-32.0); CHLORIDE - SERUM 107 mmol/L (98-107); CREATININE - SERUM 1.4 mg/dL (0.6-1.3); POTASSIUM - SERUM 3.6 mmol/L (3.5-5.1); SODIUM 139 mmol/L (136-145); UREA NITROGEN 24 mg/dL (7-18); eGFR NON AFRICAN AMERICAN 38 mL/min (90-120)
[2020-12-08 06:25] LABS: PLATELET COUNT 265 10x3/uL (130-400)
[2020-12-08 06:26] LABS: GLUCOSE 318 mg/dL (74-106)
[2020-12-08 06:41] LABS: ALBUMIN 3.2 g/dL (3.4-5.0); ALKALINE PHOSPHATASE 78 U/L (30-120); ALT (SGPT) 17 U/L (10-68); AMYLASE - SERUM 41 U/L (25-115); BILIRUBIN - TOTAL 0.32 mg/dL (0.2-1.3); CKMB 0.1 U/L (0.0-3.6); CREATINE KINASE 43 UL (21-215); LIPASE 128 U/L (73-393); PROTEIN - SERUM 6.2 g/dL (6.4-8.2); TROPONIN-I < 0.017 ng/mL (0.000-0.060)
--- NOTE | 2020-12-08 07:38 | NUR ---
RECIEVED WITH IV IN LEFT AC W NS RUNNING. STATES PAIN IS NOW LEFT FLANK AREA. CATH URINE OBTAINED
[2020-12-08 08:10] LABS: APTT 24.6 SECONDS (22.8-39.4); INR 1.06 (0.85-1.17); PROTIME 12.8 SECONDS (11.6-15.0)
[2020-12-08 08:17] LABS: BILIRUBIN NEGATIVE (NEGATIVE); KETONE NEGATIVE (NEGATIVE); NITRITE NEGATIVE (NEGATIVE); UROBILINOGEN NORMAL mg/dL (< 2)
[2020-12-08 08:18] LABS: BACTERIA FEW HPF (NONE SEEN); SQUAMOUS EPITHELIAL OCC HPF (0-4); WHITE CELLS - URINE RARE HPF (0-4)
--- NOTE | 2020-12-08 08:54 | NUR ---
PATIENT TO IR FOR PROCEDURE, PATIENT SPOKE W ON PHONE. BELONGINGS WSENT W PATIENT
--- NOTE | 2020-12-08 10:15 | NUR ---
RECEIVED PT TO ICU 15 VIA STRECTHER FROM IR, PT ALERT, PLACED ON [employer] COACH, SR NOTED, HR 82, BP 125/73, O2 SAT 94% ON ROOM AIR, DRESSING NOTED TO RIGHT GROIN, CDI, NO BRUISING OR SWELLING NOTED, PT DENIES PAIN, CALL LIGHT IN REACH, WILL MONITOR
[2020-12-08 10:17] LABS: BASOPHILS 0.1 % (0-2); EOSINOPHILS 0.1 % (0-7); IMMATURE GRANULOCYTES 0.4 % (0-5); LYMPHOCYTE ABS# 0.76 10x3/uL (1.18-3.74); LYMPHOCYTES 5.7 % (15-50); MCH 28.2 pg (26.0-34.0); MCHC 33.2 g/dL (31.0-37.0); MEAN PLATELET VOLUME 9.5 fL (7.4-10.4); MONOCYTES 7.8 % (2-11); NEUTROPHIL ABS# 11.55 10x3/uL (1.56-6.13); NEUTROPHILS 85.9 % (40-80); PLATELET COUNT 226 10x3/uL (130-400); RDW 13.8 % (11.5-14.5); WBC 13.4 10x3/uL (4.8-10.8)
[2020-12-08 10:18] LABS: HEMATOCRIT 23.8 % (36.0-48.0); HEMOGLOBIN 7.9 g/dL (12-16)
--- NOTE | 2020-12-08 11:50 | NUR ---
PT SLEEPING, FIRST UNIT OF PRBC STARTED AT THIS TIME, SEE BLOOD TRANSFUSION SHEET, CRISTIAN BREAUX
--- NOTE | 2020-12-08 14:00 | NUR ---
BLOOD TRANSFUSION COMPLETE, TOLERATED WELL
--- NOTE | 2020-12-08 14:35 | NUR ---
Dr. Funez notified of consult
[2020-12-08 15:51] LABS: HEMOGLOBIN 8.1 g/dL (12-16)
--- NOTE | 2020-12-08 19:44 | NUR ---
SPOKE WITH ON-CALL PHYSICIAN CONCERNING TEMP OF 101.3, ORDERS RECEIVED FOR TYLENOL AND BLOOD CULTURES.
[2020-12-08 21:36] LABS: HEMATOCRIT 23.2 % (36.0-48.0); HEMOGLOBIN 7.7 g/dL (12-16)
[2020-12-09] VITALS (25 sets, daily range): BP systolic 122–179; BP diastolic 42–87; BMI 34.9
--- NOTE | 2020-12-09 04:23 | NUR ---
PT CONFUSED ATTEMPTS TO GET UP UNASSISTED AND PULLS SOME MONITORING EQUIPMENT OR NASAL CANNULA OFF. ATTEMPT TO REORIENT AND REAPPLY EQUIPMENT.
[2020-12-09 05:00] LABS: HEMATOCRIT 24.8 % (36.0-48.0); HEMOGLOBIN 8.2 g/dL (12-16)
--- NOTE | 2020-12-09 05:33 | NUR ---
PT CONFUSED PULLED LEFT AC IV, BLEEDING STOPPED. IV FLUIDS MOVED TO RIGHT AC TO EXISTING IV. PT WANTING TO CONTINUE TO REMOVE EQUIPMENT AND REORIENTED TO PURPOSE. PT GIVEN BATH AND LINENS CHANGED
--- NOTE | 2020-12-09 07:20 | NUR ---
pt laying in bed resting, pt confused, reoriented pt at this time, call light in reach, will monitor
--- NOTE | 2020-12-09 08:30 | NUR ---
pt refuses breakfast at this time
--- NOTE | 2020-12-09 10:42 | NUR ---
DR. DÍAZ HERE SEEING PATIENT
[2020-12-09 10:55] LABS: ANION GAP 11.1 mmol/L (8-16); CALCIUM 8.8 mg/dL (8.5-10.1); CARBON DIOXIDE 23.5 mmol/L (21.0-32.0); CREATININE - SERUM 1.4 mg/dL (0.6-1.3); POTASSIUM - SERUM 3.6 mmol/L (3.5-5.1)
--- NOTE | 2020-12-09 12:15 | NUR ---
pt trying to get out of bed and pulled out PIV, attempted to reorient pt, new PIV started in right hand 20G, flushes with ease, will monitor
--- NOTE | 2020-12-09 12:25 | NUR ---
dr zafar here seeing patient
[2020-12-09 12:48] LABS: HEMATOCRIT 24.2 % (36.0-48.0); HEMOGLOBIN 8.2 g/dL (12-16)
--- NOTE | 2020-12-09 16:00 | NUR ---
pt still confused and pulling at iv and monitor, attempted to reorient pt, will monitor
[2020-12-09 21:22] LABS: HEMATOCRIT 23.9 % (36.0-48.0); HEMOGLOBIN 7.8 g/dL (12-16)
--- NOTE | 2020-12-09 21:34 | NUR ---
SPOKE TO EMILIA FRAGOSO ABOUT HBG LEVEL 7.8. RECREATIONAL DIRECTOR ORDERED 2 UNITS EACH OVER 4 HOURS.
--- NOTE | 2020-12-09 22:13 | NUR ---
SPOKE TO EMILIA FRAGOSO ABOUT PRE TRANSFUSION TEMP 100.3. WHIPPER BEATER ORDERED TO GIVE 650MG OF TYLENOL PO BEFORE BLOOD ADMINISTRATION AND BENADRYL 25MG ONCE IV AND IF NEEDED AGAIN OK TO GIVE. IF CANT TAKE PO GIVE 325MG RECTALLY. WHIPPER BEATER ALSO ORDERED BILATERAL WRIST RESTRAINTS FOR PATIENT PROTECTION. PATIENT PULLING AT LINES AND TRYING TO GET OUT OF BED. PATIENT NOT ABLE TO FOLLOW COMMANDS.
--- NOTE | 2020-12-09 23:45 | NUR ---
SPOKE TO EMILIA FRAGOSO ABOUT PATIENT BP. GRAIN PACKER CHANGED PARAMETERS FOR HYDRALAZINE TO KEEP SBP <175 AND DBP<105
[2020-12-10] VITALS (26 sets, daily range): BP systolic 159–199; BP diastolic 59–80
[2020-12-10 04:21] LABS: BASOPHILS 0.1 % (0-2); EOSINOPHILS 0.1 % (0-7); HEMATOCRIT 27.7 % (36.0-48.0); HEMOGLOBIN 9.2 g/dL (12-16); IMMATURE GRANULOCYTES 0.3 % (0-5); LYMPHOCYTE ABS# 0.62 10x3/uL (1.18-3.74); LYMPHOCYTES 4.8 % (15-50); MCH 28.3 pg (26.0-34.0); MCHC 33.2 g/dL (31.0-37.0); MCV 85.2 fL (80.0-100.0); MEAN PLATELET VOLUME 10.6 fL (7.4-10.4); MONOCYTES 9.8 % (2-11); NEUTROPHIL ABS# 11.05 10x3/uL (1.56-6.13); NEUTROPHILS 84.9 % (40-80); RBC 3.25 10x6/uL (4.00-5.40); RDW 14.7 % (11.5-14.5)
[2020-12-10 04:46] LABS: PLATELET COUNT 147 10x3/uL (130-400)
[2020-12-10 05:03] LABS: ANION GAP 16.5 mmol/L (8-16); BILIRUBIN - TOTAL 1.09 mg/dL (0.2-1.3); CALCIUM 9.4 mg/dL (8.5-10.1); CARBON DIOXIDE 21.2 mmol/L (21.0-32.0); CREATININE - SERUM 1.2 mg/dL (0.6-1.3); POTASSIUM - SERUM 3.7 mmol/L (3.5-5.1); PROTEIN - SERUM 6.2 g/dL (6.4-8.2)
--- NOTE | 2020-12-10 06:47 | NUR ---
PATIENT CONFUSED AND TRYING TO GET OUT OF BED. REMAINED RESTRAINED THROUGH THE NIGHT. RECEIVED BOTH UNITS OF PRBCS WITH NO TRANSFUSION REACTIONS. PATIENT WITH T MAX OF 100.4. TREATED ONCE WITH 325MG OF RECTAL TYLENOL.
--- NOTE | 2020-12-10 07:10 | NUR ---
REPORT RECIEVED, RESTING AT THIS TIME, SEE SHIFT ASSESSMENT FOR ASSESSMENT FINDINGS, WILL MONITOR
--- NOTE | 2020-12-10 09:20 | NUR ---
SPOKE WITH ED, SPOUSE, GAVE AN UPDATE. STATES THAT PT HAS HAD REACTION OF CONFUSION WITH ANESTHESIA BEFORE THAT LASTED A FEW DAYS.
--- NOTE | 2020-12-10 12:13 | NUR ---
02 STATS 80% ON 6LT, PLACED ON HIGHFLOW 12 LT, STATS NOW 90%
[2020-12-10 13:13] LABS: HEMATOCRIT 31.1 % (36.0-48.0); HEMOGLOBIN 10.5 g/dL (12-16)
--- NOTE | 2020-12-10 14:25 | NUR ---
SPOKE WITH , GAVE AN UPDATE. HE WANTED US TO KNOW THAT HER CARRIOLOGIST IS DR. GUZMAN
--- NOTE | 2020-12-10 17:37 | NUR ---
BLOW NOSE TO GET NC OUT. SHAKING HEAD WILL NOT KEEP O2 ON. OXYGEN MASK PLACED ON 8LT. WILL CONTINUE TO MONITOR PT
[2020-12-10 21:32] LABS: HEMATOCRIT 32.1 % (36.0-48.0); HEMOGLOBIN 10.8 g/dL (12-16)
[2020-12-11] VITALS (52 sets, daily range): BP systolic 121–215; BP diastolic 7–120
[2020-12-11 04:21] LABS: BASOPHILS 0.1 % (0-2); EOSINOPHILS 0.1 % (0-7); HEMATOCRIT 32.4 % (36.0-48.0); HEMOGLOBIN 10.8 g/dL (12-16); IMMATURE GRANULOCYTES 0.5 % (0-5); LYMPHOCYTE ABS# 0.48 10x3/uL (1.18-3.74); LYMPHOCYTES 3.5 % (15-50); MCH 28.8 pg (26.0-34.0); MCHC 33.3 g/dL (31.0-37.0); MCV 86.4 fL (80.0-100.0); MEAN PLATELET VOLUME 9.9 fL (7.4-10.4); MONOCYTES 10.1 % (2-11); NEUTROPHIL ABS# 11.75 10x3/uL (1.56-6.13); NEUTROPHILS 85.7 % (40-80); PLATELET COUNT 165 10x3/uL (130-400); RBC 3.75 10x6/uL (4.00-5.40); RDW 14.9 % (11.5-14.5); WBC 13.7 10x3/uL (4.8-10.8)
[2020-12-11 04:41] LABS: ALBUMIN 2.7 g/dL (3.4-5.0); ANION GAP 15.4 mmol/L (8-16); BILIRUBIN - TOTAL 0.68 mg/dL (0.2-1.3); CALCIUM 9.4 mg/dL (8.5-10.1); CARBON DIOXIDE 23.5 mmol/L (21.0-32.0); CREATININE - SERUM 1.1 mg/dL (0.6-1.3); POTASSIUM - SERUM 3.9 mmol/L (3.5-5.1); PROTEIN - SERUM 6.3 g/dL (6.4-8.2)
--- NOTE | 2020-12-11 06:38 | NUR ---
0515-SPOKE TO EMILIA FRAGOSO ABOUT PATIENT PRESSURE. RECORD CLERK ORDERED TO GIVE 10MG OF HYDRALIZINE TIMES ONE IV AND IF PRESSURE ISNT LESS THAN 180 IN AN HOUR TO CALL BACK. 0630-PATIENT BP IN 190S. CALLED EMILIA FRAGOSO AND HE ORDERED CARDENE DRIP TO KEEP SBP LESS THAN 180. PATIENT HAD A CHG BATH AND RAMAN CARE. PATIENT REMAINED IN RESTRAINTS ALL NIGHT.
--- NOTE | 2020-12-11 10:14 | NUR ---
Nutrition follow-up: Pt currently NPO s/p anesthsia; confused and in restraints at this time Pt had been refusing meals before surgery Labs reviewed Wt: 184# Recommendations: Recommend shrot-term Procalamine PPN @ 100 ml/hr due to pts poor nutritional status at least until po diet starts. RDN follow-up: 12/14/20
[2020-12-11 13:32] LABS: HEMATOCRIT 33.9 % (36.0-48.0); HEMOGLOBIN 11.3 g/dL (12-16)
--- NOTE | 2020-12-11 17:50 | NUR ---
RICHMOND NOTIFIED OF YELLING OUT. ANSWERS YES WHEN ASKED IF IN PAIN. NEW ORDERS REC'D.
[2020-12-11 22:43] LABS: HEMATOCRIT 33.1 % (36.0-48.0)
[2020-12-12] VITALS (71 sets, daily range): BP systolic 140–227; BP diastolic 57–122
[2020-12-12 05:40] LABS: BASOPHILS 0.1 % (0-2); EOSINOPHILS 0.1 % (0-7); HEMATOCRIT 31.6 % (36.0-48.0); HEMOGLOBIN 10.7 g/dL (12-16); IMMATURE GRANULOCYTES 0.8 % (0-5); LYMPHOCYTE ABS# 0.71 10x3/uL (1.18-3.74); LYMPHOCYTES 5.8 % (15-50); MCH 29.2 pg (26.0-34.0); MCHC 33.9 g/dL (31.0-37.0); MCV 86.1 fL (80.0-100.0); MONOCYTES 7.1 % (2-11); NEUTROPHILS 86.1 % (40-80); PLATELET COUNT 158 10x3/uL (130-400); RBC 3.67 10x6/uL (4.00-5.40); RDW 15.2 % (11.5-14.5); WBC 12.2 10x3/uL (4.8-10.8)
[2020-12-12 06:08] LABS: ALBUMIN 2.5 g/dL (3.4-5.0); BILIRUBIN - TOTAL 0.83 mg/dL (0.2-1.3); CALCIUM 9.8 mg/dL (8.5-10.1); CARBON DIOXIDE 21.2 mmol/L (21.0-32.0); PROTEIN - SERUM 6.4 g/dL (6.4-8.2)
[2020-12-12 06:13] LABS: POTASSIUM - SERUM 3.2 mmol/L (3.5-5.1)
[2020-12-12 12:57] LABS: HEMATOCRIT 33.3 % (36.0-48.0); HEMOGLOBIN 11.1 g/dL (12-16)
--- NOTE | 2020-12-12 18:17 | NUR ---
0700-SEE FLOW SHEET-CALLING OUT CONFUSION-PULLING OFF NRB RESTRAINTS IN PLACE-RESECURED -CARDENE TITRATED TO 12.5MG-NIBP 220/124- 0800-APRESOLINE 10IVP [id number]-355/110 0930-NBP 183/110-MENTATION IMPROVED-ABLE TO ANSWER QUESTION-REQUESTED TO CALL HER -PLACED ON 12L OXIMYZER-RESTRAINTS REMOVED-USED PT CELL PHONE TO CALL -NOTED MARKED ORIENTION 1045-PT PULLED IV OUT-O2 AT 90%-REPLACED TO NRB 1230-DR PRINCE AT BEDSIDE-ABLE TO SPEAK WITH PT AND DAUGHTER ON CELL PHONE REGARDING STATUS AND PLANNED COURSE OF TREATMENT-INCREASED CONFUSION WITH PT -PULLING OFF NRB AND CALLING FOR HELP DURING CONVERSATION-REQUIRED TO REPLACE RESTRAINTS TO PREVENT REMOVAL OF O2- 1400-L UPPER FOREARM-20 G STARTED ORDERED 1630 WATER PROVIDED WITH RESTRAINTS IN PLACE REQUESTED BY PT-
--- NOTE | 2020-12-12 19:00 | NUR ---
RECEIVED BEDSIDE REPORT. PATIENT IS ALERT AND PLEASANTLY CONFUSED. RESTING COMFORTABLY IN BED. RESPIRATIONS ARE EVEN AND UNLABORED. PATIENT REMAINS ON AND NRB AT 12L. ALSO PATIENT REMAINS IN SOFT WRIST RESTRAINTS, PULSES ARE PALPABLE. NO S/S OF DISTRESS. NO C/O PAIN. CALL LIGHT WITHIN REACH. WILL CPOC.
--- NOTE | 2020-12-12 20:00 | NUR ---
PATIENT CAN BE HEARD YELLING, "HELLO" FROM HER ROOM. I WENT TO PATIENT ROOM TO ASSESS THE SITUATION PATIENT REPEATED "PLEASE" OVER AND OVER. NO S/S OF DISTRESS. NO C/O PAIN. CALL LIGHT WITHIN REACH. WILL CPOC.
--- NOTE | 2020-12-12 20:35 | NUR ---
PATIENT CONTINUES TO REPEATLY YELL FROM ROOM. PATIENT GIVEN 0.25 MG OF XANAX FOR AGITATION. PATIENT REPEATS YELLING "HELLO" EVEN WHEN YOU ARE STANDING IN THE ROOM. ATTEMPTED TO RELEASE ONE WRIST WHILE I WAS IN THE ROOM. PATIENT PULLS HER NRB MASK OF AND HER O2 SATURATION DECREASES TO THE 70%. PATIENT LEFT WRIST PLACED BACK IN RESTRAINTS. PATIENT GIVEN WATER TO DRINK.
--- NOTE | 2020-12-12 21:30 | NUR ---
PATIENT CONTINUES TO YELL FROM ROOM. WENT TO ROOM TO ASSESS PATIENT. REPOSITIONED PATIENT. RELEASES BOTH WRISTS WHILE I WAS IN ROOM. GAVE PATIENT THE WATER SHE REQUESTED. PATIENT DRANK 240 ML. PATIENT CONTINUES TO PULL OF HER NRB MASK. BOTH WRISTS PLACED BACK IN SOFT WRIST RESTRAINTS.
[2020-12-12 22:21] LABS: HEMATOCRIT 31.8 % (36.0-48.0); HEMOGLOBIN 10.8 g/dL (12-16)
[2020-12-13] VITALS (50 sets, daily range): BP systolic 133–198; BP diastolic 55–104
[2020-12-13 05:17] LABS: BASOPHILS 0.1 % (0-2); EOSINOPHILS 0.2 % (0-7); HEMATOCRIT 31.1 % (36.0-48.0); HEMOGLOBIN 10.4 g/dL (12-16); IMMATURE GRANULOCYTES 0.7 % (0-5); LYMPHOCYTE ABS# 0.56 10x3/uL (1.18-3.74); LYMPHOCYTES 4.4 % (15-50); MCH 28.3 pg (26.0-34.0); MCHC 33.4 g/dL (31.0-37.0); MCV 84.7 fL (80.0-100.0); MEAN PLATELET VOLUME 9.8 fL (7.4-10.4); NEUTROPHIL ABS# 10.51 10x3/uL (1.56-6.13); NEUTROPHILS 82.6 % (40-80); PLATELET COUNT 135 10x3/uL (130-400); RBC 3.67 10x6/uL (4.00-5.40); RDW 15.2 % (11.5-14.5); WBC 12.7 10x3/uL (4.8-10.8)
[2020-12-13 05:29] LABS: ALBUMIN 2.5 g/dL (3.4-5.0); ANION GAP 19.6 mmol/L (8-16); BILIRUBIN - TOTAL 3.82 mg/dL (0.2-1.3); CALCIUM 9.9 mg/dL (8.5-10.1); CARBON DIOXIDE 20.4 mmol/L (21.0-32.0); CREATININE - SERUM 1.3 mg/dL (0.6-1.3); PROTEIN - SERUM 6.2 g/dL (6.4-8.2)
--- NOTE | 2020-12-13 09:18 | NUR ---
0900: SPO2 87-89 ON 100% NRB MASK. 0910: [facility]. 0912: REC'D CONSULT FOR DR. EDUARDO. 0913: DR. EDUARDO PAGED. 0914: DR. EDUARDO HERE. NOTIFIED OF CONSULT.
[2020-12-13 10:06] LABS: SARS-CoV-2 ANTIGEN NEGATIVE- SARS-COV-2 (NEGATIVE)
[2020-12-13 10:16] LABS: INR 1.41 (0.85-1.17)
[2020-12-13 10:36] LABS: C-REACTIVE PROTEIN 61.5 mg/dL (0.0-0.9)
[2020-12-13 10:38] LABS: D-DIMER-QUANTITATIVE 3.67 ug/mLFEU (0.20-0.54)
[2020-12-13 13:54] LABS: HEMATOCRIT 31.5 % (36.0-48.0); HEMOGLOBIN 10.6 g/dL (12-16)
--- NOTE | 2020-12-13 14:00 | NUR ---
IV L UPPER ARM INFILTRATED. IV RESTARTED WITH 20G ON 1ST ATTEMPT IN L WRIST.
--- NOTE | 2020-12-13 14:26 | NUR ---
Nutrition follow-up: Pt with BIPAP in place Diet: consistent CHO PO intake poor due to confusion and wrist restraints Labs reviewed Wt: 191# No BM charted since admit Pt will need nutrition suport started within 24-48 hours if po intake continues to be poor May consider starting Procalamin PPN @ 75 ml/hr for short-term nutrition support RDN follow-up: 12/16/20
[2020-12-13 15:10] LABS: ERYTHROCYTE SEDIMENTATION RATE 76 mm/hr (0-30)
[2020-12-13 21:59] LABS: HEMATOCRIT 34.3 % (36.0-48.0); HEMOGLOBIN 11.4 g/dL (12-16)
[2020-12-14] VITALS (23 sets, daily range): BP systolic 174–218; BP diastolic 68–99
[2020-12-14 05:36] LABS: BASOPHILS 0.1 % (0-2); EOSINOPHILS 0.4 % (0-7); HEMATOCRIT 34.4 % (36.0-48.0); HEMOGLOBIN 11.3 g/dL (12-16); IMMATURE GRANULOCYTES 0.7 % (0-5); LYMPHOCYTE ABS# 0.59 10x3/uL (1.18-3.74); MCH 28.5 pg (26.0-34.0); MCHC 32.8 g/dL (31.0-37.0); MCV 86.6 fL (80.0-100.0); MEAN PLATELET VOLUME 10.1 fL (7.4-10.4); NEUTROPHIL ABS# 12.31 10x3/uL (1.56-6.13); NEUTROPHILS 82.8 % (40-80); PLATELET COUNT 128 10x3/uL (130-400); RBC 3.97 10x6/uL (4.00-5.40); RDW 15.6 % (11.5-14.5); WBC 14.9 10x3/uL (4.8-10.8)
[2020-12-14 06:16] LABS: ALBUMIN 2.6 g/dL (3.4-5.0); BILIRUBIN - TOTAL 4.35 mg/dL (0.2-1.3); CARBON DIOXIDE 20.7 mmol/L (21.0-32.0); CREATININE - SERUM 1.3 mg/dL (0.6-1.3); POTASSIUM - SERUM 3.2 mmol/L (3.5-5.1)
[2020-12-14 06:22] LABS: ANION GAP 17.5 mmol/L (8-16)
--- NOTE | 2020-12-14 17:33 | NUR ---
PATIENT TRYING TO KICK ME AND WANTS TO GO HOME AND SHE SAYS. i AM ONLY ABLE TO ASSESS ORIENTATION TO SELF AT THIS TIME. HCG BATH GIVEN AND TOTAL LINEN CHANAGE DONE.
[2020-12-14 23:04] LABS: HEMATOCRIT 33.5 % (36.0-48.0)
[2020-12-15] VITALS (24 sets, daily range): BP systolic 145–213; BP diastolic 61–135; Ht 152.4 cm; Wt 76.5 kg
[2020-12-15 05:23] LABS: BASOPHILS 0.1 % (0-2); EOSINOPHILS 0.1 % (0-7); HEMATOCRIT 36.3 % (36.0-48.0); HEMOGLOBIN 11.9 g/dL (12-16); IMMATURE GRANULOCYTES 1.7 % (0-5); LYMPHOCYTE ABS# 1.37 10x3/uL (1.18-3.74); LYMPHOCYTES 7.6 % (15-50); MCH 27.9 pg (26.0-34.0); MCHC 32.8 g/dL (31.0-37.0); MEAN PLATELET VOLUME 10.6 fL (7.4-10.4); MONOCYTES 4.6 % (2-11); NEUTROPHILS 85.9 % (40-80); RBC 4.27 10x6/uL (4.00-5.40); RDW 15.9 % (11.5-14.5); WBC 18.1 10x3/uL (4.8-10.8)
[2020-12-15 05:27] LABS: PLATELET COUNT 67 10x3/uL (130-400); PLATELET ESTIMATE DECREASED
[2020-12-15 05:36] LABS: BILIRUBIN - TOTAL 3.13 mg/dL (0.2-1.3); CALCIUM 9.9 mg/dL (8.5-10.1); CARBON DIOXIDE 20.7 mmol/L (21.0-32.0); CREATININE - SERUM 1.2 mg/dL (0.6-1.3); POTASSIUM - SERUM 3.1 mmol/L (3.5-5.1); PROTEIN - SERUM 5.8 g/dL (6.4-8.2)
[2020-12-15 05:43] LABS: ANION GAP 16.4 mmol/L (8-16)
--- NOTE | 2020-12-15 07:15 | NUR ---
[id number] ASSESSMENT COMPLETE PER FLOW SHEET. PT ABLE TO STATE NAME SITUATION, WHO THE PRESIDENT IS, WHAT YEAR IT IS. ORIENTED X4. PT UPSET AT THIS TIME. GIVEN COFFEE PER REQUEST. GIVEN BREAKFAST PER REQUEST REFUSED TO EAT. REPOSITIONED UP IN BED FOR COMFORT. GIVEN WARM BLANKET. ASSISTED WITH BRUSHING TEETH, BRUSHED HAIR. PT REQUESTED TO GET OOB TO BEDSIDE COMMODE. PT ON 15LNRB AND 15L OXYMIZER SOB UNABLE TO LIFT LEGS OFF BED, EXPLAINED TO PT SHE WOULD NOT BE ABLE TO TOLERATE GETTING OOB WITH O2 REQUIREMENT AT THIS TIME. REFUSED TO GET ONTO BEDPAN. WILL ATTEMPT AGAIN LATER.
--- NOTE | 2020-12-15 09:00 | NUR ---
DR ANDERSON AT BEDSIDE GIVEN UPDATE. NEW ORDERS RECEIVED.
--- NOTE | 2020-12-15 09:20 | NUR ---
CALLED STATED PASSWORD GIVEN UPDATE.
--- NOTE | 2020-12-15 09:30 | NUR ---
PT EMERGENCY WORKER LIGHT, GIVEN COFFEE PER REQUEST.
--- NOTE | 2020-12-15 09:42 | NUR ---
PT REFUSED LAB DRAW FOR VANC TROUGH. EXPLAINED TO PT IMPORTANCE OF LAB. STILL REFUSED. PHARMACY CALLED GIVEN UDPATE. STATED TO PROCEED TO GIVE VANC.
--- NOTE | 2020-12-15 09:45 | NUR ---
PT BARREL BANDER LIGHT, REQUESTING COKE. O2 SAT 88% UNABLE TO GIVE AT THIS TIME.
[2020-12-15 13:46] LABS: HEMATOCRIT 32.5 % (36.0-48.0); HEMOGLOBIN 10.9 g/dL (12-16)
--- NOTE | 2020-12-15 14:30 | EC ---
PATIENT:KESHA ROSE DATE OF SERVICE: 12/08/20 SEX: F MEDICAL RECORD: [id number] DATE OF : 42 LOCATION:[place] [address] AGE OF PATIENT: 80 ADMISSION DATE: 12/08/20 REFERRING PHYSICIAN: INTERPRETING PHYSICIAN: LISETTE ARTEAGA MD ECHOCARDIOGRAM REPORT ECHO CHARGES 4 ECHO COMPLETE Date: 12/13/20 CLINICAL DIAGNOSIS: SOB ECHOCARDIOGRAPHIC MEASUREMENTS (adult normal given) AC root (d.<3.7cm) 3.0 cm LV Septum d (<1.2 cm> 1.7 cm Valve Excursion 1.9 cm LV Septum (systole) 1.6 cm Left Atria (s.<4.0cm> 4.9 cm LVPW d(<1.2cm) 1.4 cm RV (d.<2.3cm) 4.2 cm LVPW (sytole) 1.3 cm LV diastole(<5.6CM) 4.7 cm MV E-F(>70mm/sec) cm LV systole 3.3 cm LVOT Diameter 2.0 cm MV exc.(>10mm) cm Est.ejection fraction (50-75%) 55 % DOPPLER: LVIT cm/sec A 85 cm/sec E 115 cm/sec LA cm/sec RVSP 47 mmHg LVOT 108 cm/sec AOP1/2T m/s Asc. Ao 151 cm/sec RVOT 74 cm/sec RA cm/sec PA 96 cm/sec AV Gradient Peak 9 mmHg AV Mean 5 mmHg AV Area 2.6 cm MV Gradient Peak 8 mmHg MV Mean 3 mmHg MV Area cm COMMENTS: Database Security Expert: Bartolo ARMIJO Supervisor Calibration: 3 Dr. Mckinney TAPE# Pericardial Effusion N DATE OF SERVICE: Adequate 2D, color-flow imaging, spectral Doppler, and M-Mode FINDINGS: LVH is present. LV internal dimension is normal. Wall motion is normal. EF is greater than or equal to 55%. Aortic valve is tricuspid. No evidence of stenosis by Doppler interrogation. Left atrium is dilated at 4.9 cm. Mitral valve shows no prolapse. Mild MR. Right side is grossly normal. Mild TR. ECHOCARDIOGRAM REPORT [id number] KESHA ROSE TRANSINT:[id number] Voice Confirmation ID: [id number] DOCUMENT ID: [id number] LISETTE ARTEAGA MD at 1430 CC: [id number] DICTATION DATE: 12/14/20 1008 HUMAN RESOURCE ANALYST: 12/14/20 1245 ADM IN [place] [address] [place] [address]
[2020-12-15 22:06] LABS: HEMATOCRIT 35.3 % (36.0-48.0); HEMOGLOBIN 11.7 g/dL (12-16)
[2020-12-16] VITALS (24 sets, daily range): BP systolic 157–227; BP diastolic 57–96
--- NOTE | 2020-12-16 | NUR ---
PATIENT IS NOW RESTING WELL AFTER BEING GIVEN PRN HALDOL WELL MELATONIN DUE TO PATIENT BECOMING LOUD, ANXIOUS, PULLING OUT HER IV, AND THROWING CUPS OF LIQUID ACROSS THE ROOM. BP BECAME ELEVATED AND PATIENT HAS BEEN GIVEN PRN HYDRALAZINE AND SCHEDULED VASO-TECH. NEW IV HAS BEEN PLACED;20G PERIPHERAL IN LEFT WRIST.
[2020-12-16 05:41] LABS: HEMATOCRIT 33.1 % (36.0-48.0); HEMOGLOBIN 11.1 g/dL (12-16); LYMPHOCYTES 4.6 % (15-50); MCH 28.8 pg (26.0-34.0); MCHC 33.5 g/dL (31.0-37.0); MEAN PLATELET VOLUME 11.6 fL (7.4-10.4); NEUTROPHILS 85.7 % (40-80); RBC 3.85 10x6/uL (4.00-5.40); RDW 16.7 % (11.5-14.5); WBC 14.2 10x3/uL (4.8-10.8)
[2020-12-16 06:00] LABS: PLATELET COUNT 35 10x3/uL (130-400)
[2020-12-16 06:05] LABS: ALBUMIN 1.9 g/dL (3.4-5.0); BILIRUBIN - TOTAL 2.03 mg/dL (0.2-1.3); CALCIUM 9.5 mg/dL (8.5-10.1); CARBON DIOXIDE 25.1 mmol/L (21.0-32.0); CREATININE - SERUM 1.4 mg/dL (0.6-1.3); POTASSIUM - SERUM 3.3 mmol/L (3.5-5.1); PROTEIN - SERUM 5.4 g/dL (6.4-8.2)
[2020-12-16 06:22] LABS: ANION GAP 10.2 mmol/L (8-16); VANCOMYCIN - RANDOM 15.4 ug/mL (10.0-20.0)
--- NOTE | 2020-12-16 06:40 | NUR ---
PAGED ON-CALL LUMBER INSPECTOR TO NOTIFY HIM OF CR
--- NOTE | 2020-12-16 06:42 | NUR ---
Paged Dr. Gonzalez and notified him of critical plt. Will be in today to see patient. Hold any blood thinner.
--- NOTE | 2020-12-16 10:32 | NUR ---
Nutrition follow-up: Pt discussed during IDT team rounds. Pt with BIPAP Diet order: consistent CHO PO intake poor due to BIPAP Labs reviewed; Na, Cl elevated Pt is not meeting estimated nutritional needs at this time due to BIPAP Recommendations: ProcalAmine PPN for short term nutrition support @ 75 ml/hr if medically feasible RDN will follow-up: 12/18/20
[2020-12-16 13:28] LABS: ANION GAP 14.6 mmol/L (8-16); CALCIUM 9.4 mg/dL (8.5-10.1); CARBON DIOXIDE 21.5 mmol/L (21.0-32.0); CREATININE - SERUM 1.3 mg/dL (0.6-1.3); POTASSIUM - SERUM 3.1 mmol/L (3.5-5.1)
[2020-12-16 13:54] LABS: HEMATOCRIT 36.8 % (36.0-48.0); HEMOGLOBIN 12.1 g/dL (12-16)
[2020-12-16 21:57] LABS: HEMATOCRIT 35.3 % (36.0-48.0); HEMOGLOBIN 11.6 g/dL (12-16)
[2020-12-17] VITALS (24 sets, daily range): BP systolic 138–189; BP diastolic 57–80
--- NOTE | 2020-12-17 04:14 | NUR ---
During the night the patient's systolic pressure barb to 222.Spoke to Dr. Gonzalez and he requested that we just restart the lourdes drip and aim for a systolic of 160 or less. Patient was placed back on cardene drip and around 0100 her only IV access was found to be infiltrated.Patient's hand is swollen and is now elevated. Patient was without access for approx 2hrs. 22G IV was placed in rt foot and rt 20g was later placed in rt upper arm after extensive attempts to visualize a vein using an ultrasound machine as well as a vein finder. Blood return was noted with each.
--- NOTE | 2020-12-17 04:36 | NUR ---
UPON ASSESSMENT NURSE NOTICED THAT PATIENT HAS A MEDICAL BRACELET ON HER RIGHT WRIST THAT STATES, "DO NOT RESUSCITATE". BECAUSE THE PATIENT IS STILL SLIGHTLY CONFUSED, WE COULD POSSIBLY DISCUSS THIS WITH THE FAMILY AND MD TO VERIFY.
--- NOTE | 2020-12-17 04:39 | NUR ---
PATIENT'S RAMAN LEAKED ALL OVER THE BED, SO A NEW ONE WAS PLACED. URINE RETURN WAS NOTED.
[2020-12-17 04:52] LABS: ALBUMIN 1.9 g/dL (3.4-5.0); ANION GAP 11.6 mmol/L (8-16); BILIRUBIN - TOTAL 2.65 mg/dL (0.2-1.3); CALCIUM 8.8 mg/dL (8.5-10.1); CARBON DIOXIDE 23.6 mmol/L (21.0-32.0); CREATININE - SERUM 1.2 mg/dL (0.6-1.3); POTASSIUM - SERUM 3.2 mmol/L (3.5-5.1); PROTEIN - SERUM 4.7 g/dL (6.4-8.2); VANCOMYCIN - RANDOM 15.3 ug/mL (10.0-20.0)
[2020-12-17 05:41] LABS: BASOPHILS 0.1 % (0-2); EOSINOPHILS 0.5 % (0-7); HEMATOCRIT 33.8 % (36.0-48.0); HEMOGLOBIN 11.1 g/dL (12-16); LYMPHOCYTE ABS# 0.69 10x3/uL (1.18-3.74); MCH 28.2 pg (26.0-34.0); MCHC 32.8 g/dL (31.0-37.0); MCV 85.8 fL (80.0-100.0); MONOCYTES 7.7 % (2-11); NEUTROPHIL ABS# 14.93 10x3/uL (1.56-6.13); NEUTROPHILS 85.7 % (40-80); RBC 3.94 10x6/uL (4.00-5.40); RDW 15.8 % (11.5-14.5); WBC 17.4 10x3/uL (4.8-10.8)
[2020-12-17 05:51] LABS: PLATELET COUNT 14 10x3/uL (130-400)
--- NOTE | 2020-12-17 05:59 | NUR ---
Paged Dr. Gonzalez to update him of critical plt of 15.
--- NOTE | 2020-12-17 06:17 | NUR ---
Spoke to Dr. Gonzalez regarding low plt count. Given orders to consult Dr. Gonzalez.
[2020-12-17 07:36] LABS: APTT 30.2 SECONDS (22.8-39.4); INR 1.87 (0.85-1.17)
[2020-12-17 11:02] LABS: LYMPHOCYTES 14 % (15-50); MONOCYTES 8 % (2-11); NEUTROPHILS 75 % (40-80)
[2020-12-17 11:06] LABS: ANISOCYTOSIS OCC; PLATELET ESTIMATE DECREASED
[2020-12-17 13:36] LABS: HEMOGLOBIN 10.9 g/dL (12-16)
[2020-12-17 21:43] LABS: HEMATOCRIT 31.8 % (36.0-48.0); HEMOGLOBIN 10.4 g/dL (12-16)
[2020-12-18] VITALS (23 sets, daily range): BP systolic 157–191; BP diastolic 57–671
--- NOTE | 2020-12-18 01:03 | NUR ---
PT PULLED OUT CENTRAL LINE, PAGED BANQUET COOK SURGERY
--- NOTE | 2020-12-18 01:09 | NUR ---
DR. LYNCH RETURNED PAGE AND STATED TO LEAVE THE LINE OUT.
[2020-12-18 04:18] LABS: BASOPHILS 0.1 % (0-2); EOSINOPHILS 1.3 % (0-7); HEMOGLOBIN 10.5 g/dL (12-16); IMMATURE GRANULOCYTES 1.8 % (0-5); LYMPHOCYTE ABS# 0.59 10x3/uL (1.18-3.74); LYMPHOCYTES 3.9 % (15-50); MCH 28.2 pg (26.0-34.0); MCHC 32.8 g/dL (31.0-37.0); MCV 85.8 fL (80.0-100.0); MONOCYTES 6.1 % (2-11); NEUTROPHIL ABS# 13.02 10x3/uL (1.56-6.13); NEUTROPHILS 86.8 % (40-80); RBC 3.73 10x6/uL (4.00-5.40); RDW 15.8 % (11.5-14.5)
[2020-12-18 04:46] LABS: ALBUMIN 1.6 g/dL (3.4-5.0); ANION GAP 13.9 mmol/L (8-16); BILIRUBIN - TOTAL 2.37 mg/dL (0.2-1.3); CALCIUM 9.2 mg/dL (8.5-10.1); CARBON DIOXIDE 23.3 mmol/L (21.0-32.0); CREATININE - SERUM 1.2 mg/dL (0.6-1.3); POTASSIUM - SERUM 3.2 mmol/L (3.5-5.1)
[2020-12-18 05:32] LABS: PLATELET COUNT 15 10x3/uL (130-400)
--- NOTE | 2020-12-18 05:41 | NUR ---
CALLED DR. GRACE OFFICE TO HAVE AND TAXI INSTRUCTOR BUS TROLLEY PAGED REGARDING CRITICAL LAB
--- NOTE | 2020-12-18 05:43 | NUR ---
DR. GRACE CALLED BACK ADVISED PLT COUNT OF 15, NO ORDERS GIVEN
--- NOTE | 2020-12-18 09:20 | NUR ---
RETURNED FROM THE OR VIA BED. LT TLSC WITH BELLA Marinelli. WAITING FOR PCXR FOR PLACEMENT PER DR LYNCH. PT ON 100% NRB, O2 SAT 91%. WILL CONT TO MONITOR.
--- NOTE | 2020-12-18 09:40 | NUR ---
DR CRONIN HERE TO SEE PT. UPDATE GIVEN.
--- NOTE | 2020-12-18 09:45 | NUR ---
RADIOLOGY HERE FOR CXR. TOLLERATED WELL.
[2020-12-18 11:02] LABS: PATH REVIEW PERIPHERAL SMEAR REVIEWED
--- NOTE | 2020-12-18 12:22 | NUR ---
Nutrition follow-up: Pt discussed during IDT team meeting Pt NPO for CVL placement today Triple lumen catheter placed 12/17 Labs reviewed Wt: 191# Pt receiving a consistent CHO diet with continued poor po intake. Pt is currently not meeting estimated nutritional needs. Recommendations: Start Procalamine PPN @ 100 ml/hr with medically feasible to provide: 588 kcals, 72 gm protein RDN follow-up: 12/21/20
--- NOTE | 2020-12-18 12:44 | NUR ---
SPOKE WITH DR. REED. DORIS WITH ADDITIONAL DOSE OF LASIX BEING GIVEN
[2020-12-18 13:55] LABS: HEMATOCRIT 32.5 % (36.0-48.0); HEMOGLOBIN 10.5 g/dL (12-16)
--- NOTE | 2020-12-18 17:42 | NUR ---
I have reviewed this patient and I concur with the Shift Assessment completed by the Licensed Practical Nurse today this shift.
--- NOTE | 2020-12-18 18:28 | NUR ---
PT AROUSES TO PHYSICAL STIMULI ONLY, PLACED ON BIPAP @ 75%
[2020-12-18 22:28] LABS: HEMATOCRIT 30.2 % (36.0-48.0); HEMOGLOBIN 9.9 g/dL (12-16)
[2020-12-19] VITALS (24 sets, daily range): BP systolic 135–175; BP diastolic 50–72
[2020-12-19 04:41] LABS: BASOPHILS 0.1 % (0-2); EOSINOPHILS 1.9 % (0-7); HEMATOCRIT 30.9 % (36.0-48.0); HEMOGLOBIN 9.8 g/dL (12-16); IMMATURE GRANULOCYTES 2.4 % (0-5); LYMPHOCYTE ABS# 0.59 10x3/uL (1.18-3.74); LYMPHOCYTES 3.7 % (15-50); MCH 27.3 pg (26.0-34.0); MCHC 31.7 g/dL (31.0-37.0); MCV 86.1 fL (80.0-100.0); MONOCYTES 6.9 % (2-11); NEUTROPHIL ABS# 13.53 10x3/uL (1.56-6.13); RBC 3.59 10x6/uL (4.00-5.40); RDW 15.7 % (11.5-14.5); WBC 15.9 10x3/uL (4.8-10.8)
[2020-12-19 05:03] LABS: ALBUMIN 1.5 g/dL (3.4-5.0); BILIRUBIN - TOTAL 2.05 mg/dL (0.2-1.3); CALCIUM 9.1 mg/dL (8.5-10.1); CREATININE - SERUM 1.5 mg/dL (0.6-1.3); PROTEIN - SERUM 4.9 g/dL (6.4-8.2)
[2020-12-19 05:05] LABS: POTASSIUM - SERUM 2.5 mmol/L (3.5-5.1)
[2020-12-19 05:06] LABS: ANION GAP 9.2 mmol/L (8-16); CARBON DIOXIDE 29.3 mmol/L (21.0-32.0)
[2020-12-19 05:10] LABS: PLATELET COUNT 18 10x3/uL (130-400)
[2020-12-19 05:42] LABS: PLATELET ESTIMATE DECREASED
--- NOTE | 2020-12-19 05:59 | NUR ---
PRN HYDRALAZINE 10 MG ADMINISTERED VIA SIVP PER MD ORDER FOR BP OUT OF PARAMETERS.
--- NOTE | 2020-12-19 07:45 | NUR ---
REPORT RECEIVED. PT LYING SEMI FOWLERS IN BED. RR EVEN AND UNLABORED ON 65% BIPAP. L SUBCLAVIN CVL INFUSING D5 @125. RAMAN DRAINING URINE. SOFT WRIST RESTRAINTS IN PLACE TO KEEP PT FROM PULLING LINES. BED LOCKED AND IN LOWEST POSITION. WILL CTM
--- NOTE | 2020-12-19 09:50 | NUR ---
DR ANDERSON ROUNDS MADE. WILL CONTINUE PLAN OF CARE. REPLACE POTASSIUM PER PROTOCOL. WILL CTM
--- NOTE | 2020-12-19 12:30 | NUR ---
ROUNDS MADE. WILL CONTINUE TO REPLACE POTASSIUM PER PROTOCOL AND WILL STILL GIVE LASIX ORDERED. WILL CTM
--- NOTE | 2020-12-19 13:29 | NUR ---
IV APRESOLINE GIVEN BY CASSIUS REGAN FOR BP OF 167/71. WILL CTM
--- NOTE | 2020-12-19 14:50 | NUR ---
BED BATH GIVEN, LIENS CHANGED, AND NEW STAT LOCKED IN PLACE. BED LOCKED AND IN LOWEST POSITION. WILL CTM
--- NOTE | 2020-12-19 15:56 | NUR ---
I have reviewed this patient and I concur with the Shift Assessment completed by the Licensed Practical Nurse today this shift.
[2020-12-20] VITALS (24 sets, daily range): BP systolic 118–173; BP diastolic 44–65
[2020-12-20 05:03] LABS: ANION GAP 4.1 mmol/L (8-16); CALCIUM 8.7 mg/dL (8.5-10.1); CARBON DIOXIDE 31.9 mmol/L (21.0-32.0); CREATININE - SERUM 1.4 mg/dL (0.6-1.3)
[2020-12-20 05:06] LABS: BASOPHILS 0 % (0-2); EOSINOPHILS 3.1 % (0-7); HEMOGLOBIN 8.3 g/dL (12-16); IMMATURE GRANULOCYTES 1.3 % (0-5); LYMPHOCYTE ABS# 0.67 10x3/uL (1.18-3.74); LYMPHOCYTES 5.6 % (15-50); MCH 27.8 pg (26.0-34.0); MCHC 31.9 g/dL (31.0-37.0); MONOCYTES 6.8 % (2-11); NEUTROPHIL ABS# 9.88 10x3/uL (1.56-6.13); NEUTROPHILS 83.2 % (40-80); RBC 2.99 10x6/uL (4.00-5.40); RDW 15.6 % (11.5-14.5)
[2020-12-20 05:09] LABS: WBC 11.9 10x3/uL (4.8-10.8)
[2020-12-20 05:11] LABS: PLATELET COUNT 21 10x3/uL (130-400)
--- NOTE | 2020-12-20 07:04 | NUR ---
LYING IN BED AWAKE WITH EYES OPEN AT THIS TIME. PT DENIES ANY NEEDS. PT CURRENTLY HAS SLOW RESPONSE TO COMMANDS AND QUESTIONS. INCONSISTENT WITH FOLLOWING COMMANDS. ATTEMPTED TO ASK PT QUESTIONS AND SHE DID NOT ANSWER QUESTIONS. TURNED Q2H, ORAL CARE PROVIDED Q2H. WILL CONTINUE PLAN OF CARE.
[2020-12-20 13:18] LABS: MAGNESIUM - SERUM 1.8 mg/dL (1.8-2.4)
[2020-12-20 13:19] LABS: POTASSIUM - SERUM 3.2 mmol/L (3.5-5.1)
--- NOTE | 2020-12-20 15:47 | NUR ---
K REPLACED PER ELECTROLYTE PROTOCOL.
--- NOTE | 2020-12-20 18:02 | NUR ---
RAMAN LEAKING AT THIS TIME. BALLOON NOTED TO HAVE 8ML FILLED, ADDED 2ML. TOTAL LINEN CHANGE PROVIDED ALONG WITH CHG BATH, RAMAN CARE AND FLORIN CARE. PT TURNED Q2H. NO ACUTE DISTRESS NOTED. WILL CONTNIUE TO OBSERVE.
--- NOTE | 2020-12-20 18:11 | NUR ---
SPOKE WITH PTS AND DAUGHTER. EMERGENCY CONTACT INFORMATION UPDATED. PTS FAMILY REQUEST TO SPEAK WITH PHYSICIANS WHEN THEY ROUND. NOTIFIED PTS FAMILY THAT PHYSICIANS HAVE ROUNDED EARLIER TODAY, BUT I WILL PASS IN REPORT THAT THE FAMILY WISH TO SPEAK WITH PHYSICIANS. WILL CONTINUE TO OBSERVE.
[2020-12-20 18:15] LABS: BASOPHILS 0 % (0-2); EOSINOPHILS 2.8 % (0-7); HEMATOCRIT 27.6 % (36.0-48.0); HEMOGLOBIN 8.8 g/dL (12-16); IMMATURE GRANULOCYTES 1.5 % (0-5); LYMPHOCYTE ABS# 0.67 10x3/uL (1.18-3.74); LYMPHOCYTES 5.6 % (15-50); MCH 27.5 pg (26.0-34.0); MCHC 31.9 g/dL (31.0-37.0); MCV 86.3 fL (80.0-100.0); MONOCYTES 6.5 % (2-11); NEUTROPHIL ABS# 10.01 10x3/uL (1.56-6.13); NEUTROPHILS 83.6 % (40-80); RDW 15.3 % (11.5-14.5)
[2020-12-20 18:18] LABS: PLATELET COUNT 28 10x3/uL (130-400)
[2020-12-20 18:20] LABS: PLATELET ESTIMATE DECREASED
[2020-12-21] VITALS (23 sets, daily range): BP systolic 114–165; BP diastolic 45–86
[2020-12-21 04:49] LABS: ANION GAP 4.8 mmol/L (8-16); CALCIUM 8.4 mg/dL (8.5-10.1); CARBON DIOXIDE 29.8 mmol/L (21.0-32.0); CREATININE - SERUM 1.2 mg/dL (0.6-1.3); MAGNESIUM - SERUM 1.8 mg/dL (1.8-2.4); POTASSIUM - SERUM 3.6 mmol/L (3.5-5.1)
[2020-12-21 05:06] LABS: BASOPHILS 0.1 % (0-2); EOSINOPHILS 2.4 % (0-7); HEMATOCRIT 24.5 % (36.0-48.0); HEMOGLOBIN 7.9 g/dL (12-16); IMMATURE GRANULOCYTES 1.7 % (0-5); LYMPHOCYTE ABS# 0.61 10x3/uL (1.18-3.74); LYMPHOCYTES 5.3 % (15-50); MCH 28.1 pg (26.0-34.0); MCHC 32.2 g/dL (31.0-37.0); MCV 87.2 fL (80.0-100.0); MEAN PLATELET VOLUME 13.1 fL (7.4-10.4); MONOCYTES 7.8 % (2-11); NEUTROPHIL ABS# 9.49 10x3/uL (1.56-6.13); NEUTROPHILS 82.7 % (40-80); RBC 2.81 10x6/uL (4.00-5.40); RDW 15.1 % (11.5-14.5); WBC 11.5 10x3/uL (4.8-10.8)
[2020-12-21 05:21] LABS: PLATELET COUNT 35 10x3/uL (130-400)
--- NOTE | 2020-12-21 05:47 | NUR ---
PT RESTING IN BED WITH EYES CLOSED, BIPAP IN PLACE, VSS.
--- NOTE | 2020-12-21 12:21 | NUR ---
Nutrition follow-up/reassessment: Discussed during IDT team rounds Pt on BIPAP NPO Labs reviewed Wt: 182# Continues with inadequate oral intake R/T BIPAP AEB NPO. ProcalAmine PPN starting today per pulmonary @ 75 ml/hr PPN will provide: 441 kcal 54 gm protein Estimated nutritional needs (based on AdjBW of 55 kg) are: 5871-8856 kcal (25-30 kcal/kg AdjBW) 55-72 gm protein (1.0-1.3 gm/kg AdjBW) 2407-1230 ml fluid - or per Pt currently is meetin-32% estimated kcal needs 100-130% of estimated protein needs RDN will follow-up: 12/23/20
--- NOTE | 2020-12-21 12:39 | NUR ---
DR BOND CONSULTED AND NEW ORDER REC' FOR BRAIN MRI AND EEG. ORDERS PLACE WILL F/U
[2020-12-21 13:41] LABS: BILIRUBIN - DIRECT 0.5 mg/dL (0.00-0.30); BILIRUBIN - TOTAL 1.18 mg/dL (0.2-1.3)
[2020-12-22] VITALS (26 sets, daily range): BP systolic 122–180; BP diastolic 51–72
[2020-12-22 04:25] LABS: BASOPHILS 0.1 % (0-2); EOSINOPHILS 1.7 % (0-7); HEMATOCRIT 26.4 % (36.0-48.0); HEMOGLOBIN 8.5 g/dL (12-16); LYMPHOCYTE ABS# 0.63 10x3/uL (1.18-3.74); LYMPHOCYTES 4.8 % (15-50); MCH 27.9 pg (26.0-34.0); MCHC 32.2 g/dL (31.0-37.0); MCV 86.6 fL (80.0-100.0); MEAN PLATELET VOLUME 11.5 fL (7.4-10.4); MONOCYTES 7.6 % (2-11); NEUTROPHIL ABS# 11.07 10x3/uL (1.56-6.13); NEUTROPHILS 83.8 % (40-80); RBC 3.05 10x6/uL (4.00-5.40); RDW 14.6 % (11.5-14.5); WBC 13.2 10x3/uL (4.8-10.8)
[2020-12-22 04:32] LABS: PLATELET COUNT 66 10x3/uL (130-400)
[2020-12-22 04:35] LABS: CALCIUM 8.4 mg/dL (8.5-10.1); CARBON DIOXIDE 31.3 mmol/L (21.0-32.0); CREATININE - SERUM 1.1 mg/dL (0.6-1.3); POTASSIUM - SERUM 3.3 mmol/L (3.5-5.1)
--- NOTE | 2020-12-22 06:38 | NUR ---
PATIENT FOLLOWS COMMANDS, CONFUSED AND RESTLESS AT TIMES, CONSOLABLE. REQUIRES FREQUENT REORIENTATION. ABLE TO TOLERATE BIPAP. HYPERTENSIVE, RESPONSIVE TO HYDRALAZINE ORDERED.
--- NOTE | 2020-12-22 11:19 | NUR ---
0700 REPORT RECIEVED AND CARE ASSUMED OF PATIENT... SEE FLOW SHEET FOR SHIFT SSESMENT FINDINGS.. 0715 DR REED IN TO SEE PATIENT.. 0815 DR GRACE IN TO SEE PATIENT 0900 DR EDUARDO IN UNIT UPDATE IS GIVEN.. 09[address] SPEECH PATH IN TO SEE PATIENT .. SWALLOW EVAL DONE.. 1015 PT IS CONFUSED AND HAS TO HAVE FREQUENT REORIENTATION.. O2 PLACED ON PATIENT 1045 CALLED UPDATE GIVEN BY NURSE AND DR EDUARDO SPOKE WITH HIM ON PHONE AND GAVE HIM AN UPDATE 1050 DR BOND IN TO EXAMINE PATIENT .. PROFESSOR OF SOCIOLOGY IN TO DO EEG ORDERED BY DR BOND..
--- NOTE | 2020-12-22 12:02 | NUR ---
1200 EEG CONTINUES IN PROGRESS
--- NOTE | 2020-12-22 12:24 | NUR ---
1200 EEG COMPLETE.. CAROTID ECHO IN PROGRESS..
--- NOTE | 2020-12-22 13:39 | NUR ---
1315 PHYSICAL THERAPY IN TO DO ROM.. DR BOND CALLED AND ASKED ABOUT US CAROTIDS.. ULTRASOUND PLACED ON HOLD AT THIS TIME... ULTRA SOUND TECH CALLED MESSAGE LEFT TO INFORM HER...
[2020-12-23] VITALS (42 sets, daily range): BP systolic 133–192; BP diastolic 49–74
--- NOTE | 2020-12-23 00:30 | NUR ---
PATIENT HYPERTENSIVE, BLOOD PRESSURE UNCONTROLLED WITH HYDRALIZINE. CARDENE DRIP STARTED ORDERED WILL TITRATE NECESSARY. PATIENT ALERT, RESPONSIVE AND COOPERATIVE, DENIES ASSOCIATED SYMPTOMS.
[2020-12-23 03:55] LABS: BASOPHILS 0.1 % (0-2); EOSINOPHILS 0.9 % (0-7); HEMATOCRIT 27.6 % (36.0-48.0); HEMOGLOBIN 8.9 g/dL (12-16); IMMATURE GRANULOCYTES 2.5 % (0-5); LYMPHOCYTE ABS# 0.75 10x3/uL (1.18-3.74); LYMPHOCYTES 4.6 % (15-50); MCH 27.9 pg (26.0-34.0); MCHC 32.2 g/dL (31.0-37.0); MCV 86.5 fL (80.0-100.0); MEAN PLATELET VOLUME 10.4 fL (7.4-10.4); MONOCYTES 7.8 % (2-11); NEUTROPHIL ABS# 13.69 10x3/uL (1.56-6.13); NEUTROPHILS 84.1 % (40-80); RBC 3.19 10x6/uL (4.00-5.40); RDW 14.4 % (11.5-14.5); WBC 16.3 10x3/uL (4.8-10.8)
[2020-12-23 04:08] LABS: PLATELET COUNT 123 10x3/uL (130-400)
[2020-12-23 04:27] LABS: ALBUMIN 1.5 g/dL (3.4-5.0); ANION GAP 7.6 mmol/L (8-16); BILIRUBIN - TOTAL 1.16 mg/dL (0.2-1.3); CARBON DIOXIDE 28.9 mmol/L (21.0-32.0); MAGNESIUM - SERUM 2.4 mg/dL (1.8-2.4); POTASSIUM - SERUM 3.5 mmol/L (3.5-5.1); PROTEIN - SERUM 5.2 g/dL (6.4-8.2)
--- NOTE | 2020-12-23 06:28 | NUR ---
NO CHANGE IN LOC, FUNCTIONAL STATUS THIS SHIFT. CARDENE DRIP NOW OFF. OXYGEN SATURATION ADEQUATE ON 10L HFNC.
--- NOTE | 2020-12-23 11:20 | NUR ---
Nutrition follow-up: Pt continues with BIPAP NPO until seen by speech; pt refused to eat/drink during evaluation ProcalAmine PPN started @ 75 ml/hr Labs reviewed Wt: 175# Will need long-term nutrition support started soon if po intake unable to begin RDN follow-up: 12/25/20
--- NOTE | 2020-12-23 14:30 | NUR ---
PATIENT HAS BEEN ON N/C PART OF THE DAY AND BIPAP WELL. RIGHT HAND ARM IS WEAKER THAN THE LEFT DUE TO STROKE BUT FEET SEEM TO BE EQUAL IS STRENGTH.
--- NOTE | 2020-12-23 15:50 | NUR ---
OT NOTE: PT REQUIRED EXTENSIVE A WITH SUPINE TO SIT. PT REQUIRED RUE AAROM TOLERATED. PT REQUIRED MAX VERBAL CUES FOR INCREASED PARTICIPATION. [phone] THANK YOU,LALA VILLALOBOS
--- NOTE | 2020-12-23 16:35 | NUR ---
OT NOTE: PT REMAINS LETHARGIC AND CONFUSED. PT UNABLE TO ASSIST WITH ANY GROOMING OR DRESSING TASKS. LIMITED VERBALIZATION. INABILITY TO FOLLOW MOST VERBAL COMMANDS.. REQUIRED ASSIST X 2 FOR SUPINE TO SIT AND EOB SITTING. PT WITH INCREASED WEAKNESS IN R UE AND DECREASED SITTING BALANCE. PT HAD ONLY BEEN UP ON EOB FOR A FEW MIN WHEN SHE BEGAN GRABBING HER CHEST AND STATING "HURTS" ASSISTED PT BACK TO SUPINE POSITION WITH MAX ASSIST X 2.. VANNESA JALLOH, OTR/L [phone]
[2020-12-24] VITALS (23 sets, daily range): BP systolic 149–190; BP diastolic 55–78
[2020-12-24 04:28] LABS: BASOPHILS 0 % (0-2); EOSINOPHILS 0 % (0-7); HEMATOCRIT 24.1 % (36.0-48.0); HEMOGLOBIN 7.8 g/dL (12-16); IMMATURE GRANULOCYTES 2.6 % (0-5); LYMPHOCYTE ABS# 0.47 10x3/uL (1.18-3.74); LYMPHOCYTES 4.7 % (15-50); MCHC 32.4 g/dL (31.0-37.0); MCV 86.4 fL (80.0-100.0); MEAN PLATELET VOLUME 10.4 fL (7.4-10.4); MONOCYTES 4.4 % (2-11); NEUTROPHIL ABS# 8.76 10x3/uL (1.56-6.13); NEUTROPHILS 88.3 % (40-80); PLATELET COUNT 124 10x3/uL (130-400); RBC 2.79 10x6/uL (4.00-5.40); RDW 14.4 % (11.5-14.5)
[2020-12-24 04:32] LABS: APTT 39.6 SECONDS (22.8-39.4); INR 1.95 (0.85-1.17); PROTIME 20.6 SECONDS (11.6-15.0)
[2020-12-24 04:35] LABS: ANION GAP 6.4 mmol/L (8-16); C-REACTIVE PROTEIN 13.5 mg/dL (0.0-0.9); CARBON DIOXIDE 29.8 mmol/L (21.0-32.0); MAGNESIUM - SERUM 2.4 mg/dL (1.8-2.4)
[2020-12-24 04:38] LABS: POTASSIUM - SERUM 4.2 mmol/L (3.5-5.1)
[2020-12-24 04:50] LABS: WBC 9.9 10x3/uL (4.8-10.8)
--- NOTE | 2020-12-24 06:29 | NUR ---
NO CHANGE IN PATIENT STATUS. RESTED COMFORTABLY DURING THE NIGHT, AROUSES TO VOICE AND FOLLOWS COMMANDS APPROPRIATELY.
--- NOTE | 2020-12-24 12:31 | NUR ---
DR. GRACE NOTIFIED OF HGB AND PRBC ORDERED TO BE GIVEN.
--- NOTE | 2020-12-24 14:50 | OP ---
PATIENT NAME: KESHA ROSE MEDICAL RECORD: [id number] :44 LOCATION:.[facility] D.2305 ADMISSION DATE:12/08/20 SURGEON: STERLING LYNCH MD DATE OF OPERATION: 12/18/2020 PREOPERATIVE DIAGNOSES: 1. Need for IV access. 2. Acute respiratory failure. 3. Retroperitoneal hemorrhage. 4. Thrombocytopenia. POSTOPERATIVE DIAGNOSES: 1. Need for IV access. 2. Acute respiratory failure. 3. Retroperitoneal hemorrhage. 4. Thrombocytopenia. PROCEDURE: Left subclavian vein triple-lumen central venous line placement. SURGEON: Sterling Lynch MD DESCRIPTION OF PROCEDURE: The patient's left chest was prepped and draped in sterile fashion. A needle was used to cannulate the left subclavian vein and the guidewire was advanced with ease. Over this wire, a dilator was placed followed by the triple lumen catheter. The catheter aspirated nonpulsatile dark blood and flushed easily in all 3 ports. This was sutured into place with 2-0 Prolene and dressed appropriately. COMPLICATIONS: None. CONDITION: Fair. ANESTHESIA: Local. BLOOD LOSS: Minimal. TRANSINT:[id number] Voice Confirmation ID: [id number] DOCUMENT ID: [id number] STERLING LYNCH MD at 1450 CC: [id number] DICTATION DATE: 12/18/20912 MENTAL HEALTH CONSULTANT: 12/18/20 1104 ADM IN [facility] [address] [place] [address]
--- NOTE | 2020-12-24 15:57 | NUR ---
CVP 5 AFTER TRANSFUSION AND RAMAN DISCONTINUED AND PUREWICK PLACED.
--- NOTE | 2020-12-24 16:05 | NUR ---
OT NOTE: PT REQUIRED MOD A FOR SIMPLE FACE AND HAND HYGIENE. PT REQUIRED MAX A FOR POSITONING. PT IS MORE ALERT TODAY. 140-2 THANK YOU,LALA VILLALOBOS
--- NOTE | 2020-12-24 16:21 | NUR ---
OT NOTE: PT PERFORMED BETTER TODAY. PT REMAINS VERY CONFUSED AND UNABLE TO VERBALIZE MOST NEEDS. SHE WAS MORE ALERT TODAY; ABLE TO PERFORM SUPINE TO SIT WITH MIN ASSIST!! EOB SITTING WITH MIN ASSIST; INCREASED MOVEMENT AND USE OF R UE. TOLERATED APPROX 6 MIN OF SITTING ON EOB. QUICKLY PT TRYING TO LIE BACK DOWN.. WHEN ASKED IF SHES HURTING, SHE SAYS YES.. BUT WHEN ASKED WHERE, SHE STATES, "I DONT KNOW". PT REQUIRED MAX/TOTAL ASSIST WITH ADLS, HOWEVER, BED MOB, SITTING BALANCE, AND USE OF R UE HAS IMPROVED. VANNESA JALLOH, OTR/L [phone]
[2020-12-25] VITALS (80 sets, daily range): BP systolic 137–181; BP diastolic 6–83
[2020-12-25 04:09] LABS: BASOPHILS 0.1 % (0-2); EOSINOPHILS 1.2 % (0-7); IMMATURE GRANULOCYTES 2.6 % (0-5); LYMPHOCYTE ABS# 0.86 10x3/uL (1.18-3.74); MCV 84.9 fL (80.0-100.0); MONOCYTES 9.3 % (2-11); NEUTROPHILS 80.8 % (40-80); PLATELET COUNT 143 10x3/uL (130-400); RDW 15.1 % (11.5-14.5)
[2020-12-25 04:17] LABS: HEMATOCRIT 30.3 % (36.0-48.0); RBC 3.57 10x6/uL (4.00-5.40); WBC 14.4 10x3/uL (4.8-10.8)
[2020-12-25 04:44] LABS: ALBUMIN 1.7 g/dL (3.4-5.0); ANION GAP 7.1 mmol/L (8-16); BILIRUBIN - TOTAL 0.94 mg/dL (0.2-1.3); CALCIUM 8.8 mg/dL (8.5-10.1); CARBON DIOXIDE 28.8 mmol/L (21.0-32.0); CREATININE - SERUM 0.9 mg/dL (0.6-1.3); MAGNESIUM - SERUM 2.3 mg/dL (1.8-2.4); POTASSIUM - SERUM 3.9 mmol/L (3.5-5.1); PROTEIN - SERUM 4.8 g/dL (6.4-8.2)
--- NOTE | 2020-12-25 10:59 | NUR ---
Nutrition Follow-up: ST recs puree with thin liquids; diet advanced this AM. Receiving Procal @ 75 mL/hr; provides 441 kcal & 54 g protein daily. Diet: Diabetic, Puree with Thin Liquids Wt: 169# (12/25); 181.8# (12/21); 192.5# (12/14); 179# (12/09) Labs noted: Na 139, K+ 3.9, Glu 139, Ca 8.8, Alb 1.7 Meds noted: Solumedrol, Lasix, Protonix, Humalog, electrolyte protocol -Encourage PO intake and honor food preferences within diet restrictions; consistencies per ST. -Offer/encourage Glucerna with meals. -Monitor wt. -RD follow-up: 12/28
--- NOTE | 2020-12-25 11:30 | NUR ---
OT NOTE: PT DOING MUCH BETTER TODAY. PT IS VERY ALERT BUT REMAINS CONFUSED. SHE CONT TO HAVE DECREASED ATTN SPAN, BUT SHE IS MUCH MORE VERBAL ADN ABLE TO FOLLOW SIMPLE COMMANDS.ABLE TO PERFORM BED MOB WITH MOD ASSIST FOR SUPINE TO SIT; STATIC SITTING ON EOB X APPROX 8 MIN. PT ATTEMPTING TO PERFORM SIMPLE GROOMING TASKS INCLUDING BRUSHING HAIR, WASHING FACE/HANDS, ETC.. HOWEVER, DUE TO DECREASED STRENGTH AND COORDINATION IN DOMINANT AND AND DECREASED ATTN, PT REQUIRED EXT ASSIST WITH ADLS. ATTEMPTED TO STAND WITH MAX ASSIST X 2.. REQUIRED SEVERAL MIN REST BREAK BETWEEN TRIALS. PT DID NOT WANT TO LIE BACK DOWN, SO WE OFFERED TO ASSIST HER TO CHAIR. PT ABLE TO TRANSFER WITH MOD ASSIST X 2.. ALARM PLACED IN CHAIR. EDUCATED RE CALL LIGHT AND IMPORTANCE OF NOT PULLING ON ANY TUBES OR CORDS. VANNESA JALLOH, OTR/L [phone]
--- NOTE | 2020-12-25 15:35 | NUR ---
OT NOTE: ICU STAFF REQUESTED ASSISTANCE. PT REQUIRED TOTAL A FOR CHAIR TO BED TSF. PT REQUIRED EXTRA TIME SECONDARY TO SELF LIMITING BEHAVIOR. 120-135 THANK YOU,LALA VILLALOBOS
[2020-12-25 19:09] LABS: ADAMTS13 ACTIVITY 69.3 % (>66.8)
[2020-12-26] VITALS (76 sets, daily range): BP systolic 119–180; BP diastolic 57–114
[2020-12-26 06:08] LABS: ALBUMIN 1.9 g/dL (3.4-5.0); ANION GAP 7.2 mmol/L (8-16); BILIRUBIN - TOTAL 0.85 mg/dL (0.2-1.3); CALCIUM 8.9 mg/dL (8.5-10.1); CARBON DIOXIDE 27.9 mmol/L (21.0-32.0); CREATININE - SERUM 0.9 mg/dL (0.6-1.3); MAGNESIUM - SERUM 2.2 mg/dL (1.8-2.4); POTASSIUM - SERUM 4.1 mmol/L (3.5-5.1); PROTEIN - SERUM 5.6 g/dL (6.4-8.2)
[2020-12-26 06:41] LABS: BASOPHILS 0.1 % (0-2); EOSINOPHILS 0.1 % (0-7); HEMATOCRIT 31.5 % (36.0-48.0); HEMOGLOBIN 10.2 g/dL (12-16); IMMATURE GRANULOCYTES 1.4 % (0-5); LYMPHOCYTE ABS# 0.49 10x3/uL (1.18-3.74); LYMPHOCYTES 3.4 % (15-50); MCH 28.1 pg (26.0-34.0); MCHC 32.4 g/dL (31.0-37.0); MCV 86.8 fL (80.0-100.0); MEAN PLATELET VOLUME 10.7 fL (7.4-10.4); MONOCYTES 3.1 % (2-11); NEUTROPHIL ABS# 13.13 10x3/uL (1.56-6.13); NEUTROPHILS 91.9 % (40-80); PLATELET COUNT 115 10x3/uL (130-400); RBC 3.63 10x6/uL (4.00-5.40); RDW 15.1 % (11.5-14.5); WBC 14.3 10x3/uL (4.8-10.8)
--- NOTE | 2020-12-26 10:38 | NUR ---
0700 REPORT RECIEVED AND CARE ASSUMED OF PATIENT.. SEE FLOW SHEET FOR SHIFT ASSESMENT FINDINGS.. 0900 BREAKFAST FED TO PATIENT FEW BITES TAKEN.. MEDS GIVEN .. PT IS CONVERSING APPROPRIATLY AT THIS TIME.. 0930 DR EDUARDO IN TO SEE PATIENT UPDTAE IS GIVEN.. ORDERS RECIEVED.. 1000 CALLED AND PATIENT CELL PHONE IS AT BEDSIDE.. ASSISTED PATIENT WITH CELL PHONE USE AND PATIENT CONVERED WITH .. CHECKED WITH HOUSE SUPER AND OK TO TRANSFER TO FLOOR WITH WRIST RESDTRAINTS ON.. ORDER RECIEVED FOR PO CARDENE, WILL GIVEN PO DOSE THEN BEGIN TO TAPER IV GTT..
--- NOTE | 2020-12-26 13:10 | NUR ---
1300 ASSISTED PATIENT WITH LUNCH TRAY...
--- NOTE | 2020-12-26 18:27 | NUR ---
183 RUDDYENE DRIP WEANED TO OFF AT THIS TIME..
--- NOTE | 2020-12-26 19:00 | NUR ---
REPORT RECEIVED, CARE ASSUMED. PT IS RESTING IN BED WITH EYES CLOSED AT THIS TIME. NO NEEDS NOTED. SHIFT ASSESSMENT COMPLETED, SEE FLOWSHEET FOR DETAILS. NO S/S OF DISTRESS NOTED. WILL CONTINUE TO MONITOR.
--- NOTE | 2020-12-26 21:00 | NUR ---
PT WAS INCONTINENT OF URINE, NEW PADS PLACED UNDER PT AND FLORIN CARE PREFORMED. NO OTHER NEEDS NOTED AT THIS TIME. NO S/S OF DISTRESS.
[2020-12-27] VITALS (16 sets, daily range): BP systolic 156–190; BP diastolic 67–86
--- NOTE | 2020-12-27 | NUR ---
PT WAS INCONTINENT OF URINE, NEW PADS PLACED UNDER PT AND FLORIN CARE PREFORMED. NO S/S OF DISTRESS NOTED. WILL CONTINUE TO MONITOR.
[2020-12-27 04:44] LABS: BASOPHILS 0.1 % (0-2); EOSINOPHILS 0 % (0-7); HEMATOCRIT 29.8 % (36.0-48.0); HEMOGLOBIN 9.7 g/dL (12-16); IMMATURE GRANULOCYTES 0.7 % (0-5); LYMPHOCYTE ABS# 0.61 10x3/uL (1.18-3.74); MCH 28.2 pg (26.0-34.0); MCHC 32.6 g/dL (31.0-37.0); MCV 86.6 fL (80.0-100.0); MEAN PLATELET VOLUME 10.8 fL (7.4-10.4); MONOCYTES 4.8 % (2-11); NEUTROPHIL ABS# 13.65 10x3/uL (1.56-6.13); NEUTROPHILS 90.4 % (40-80); RBC 3.44 10x6/uL (4.00-5.40); RDW 14.7 % (11.5-14.5); WBC 15.1 10x3/uL (4.8-10.8)
[2020-12-27 04:58] LABS: PLATELET COUNT 101 10x3/uL (130-400)
[2020-12-27 05:10] LABS: ALBUMIN 1.9 g/dL (3.4-5.0); ANION GAP 6.8 mmol/L (8-16); BILIRUBIN - TOTAL 0.86 mg/dL (0.2-1.3); CALCIUM 8.9 mg/dL (8.5-10.1); CARBON DIOXIDE 28.3 mmol/L (21.0-32.0); CREATININE - SERUM 0.8 mg/dL (0.6-1.3); MAGNESIUM - SERUM 2.2 mg/dL (1.8-2.4); PHOSPHOROUS 3.2 mg/dL (2.5-4.9); POTASSIUM - SERUM 4.1 mmol/L (3.5-5.1); PROTEIN - SERUM 5.3 g/dL (6.4-8.2)
--- NOTE | 2020-12-27 11:20 | NUR ---
0700 REPORT RECIEVED AND CARE ASSUMED OF PATIENT.. SEE FLOW SHEET FOR SHIFT ASSESMENT FIDNINGS... 0900 MEDS GIVEN .. PATIENT IS REFUSING BREAKFAST.. INCONTINENET OF URINE.. EXCORIATED AND RAW 1000 DR EDUARDO IN TO SEE PATIENT.... UPDATE GIVEN AND ORDERS RECIEVED.. 1045 COMPLETE CHG BATH WITH LINEN CHANGE DONE.. RAMAN CATH PLACED PER ORDER IMMEDIATE RETURN OF URINE.. 1050 NYSTOP POWDER APPLIED TO PERINEAL AREA..
[2020-12-28] VITALS (22 sets, daily range): BP systolic 142–175; BP diastolic 61–107
[2020-12-28 05:24] LABS: ALBUMIN 1.8 g/dL (3.4-5.0); ANION GAP 8.3 mmol/L (8-16); BILIRUBIN - TOTAL 0.75 mg/dL (0.2-1.3); CALCIUM 8.6 mg/dL (8.5-10.1); CARBON DIOXIDE 27.3 mmol/L (21.0-32.0); CREATININE - SERUM 0.8 mg/dL (0.6-1.3); MAGNESIUM - SERUM 2.3 mg/dL (1.8-2.4); POTASSIUM - SERUM 4.6 mmol/L (3.5-5.1); PROTEIN - SERUM 4.9 g/dL (6.4-8.2)
[2020-12-28 06:10] LABS: BASOPHILS 0 % (0-2); EOSINOPHILS 0 % (0-7); HEMATOCRIT 29.1 % (36.0-48.0); HEMOGLOBIN 9.6 g/dL (12-16); IMMATURE GRANULOCYTES 0.8 % (0-5); LYMPHOCYTE ABS# 1.11 10x3/uL (1.18-3.74); LYMPHOCYTES 8.5 % (15-50); MCH 28.4 pg (26.0-34.0); MCV 86.1 fL (80.0-100.0); MEAN PLATELET VOLUME 11.6 fL (7.4-10.4); NEUTROPHIL ABS# 11.54 10x3/uL (1.56-6.13); NEUTROPHILS 88.7 % (40-80); RBC 3.38 10x6/uL (4.00-5.40); RDW 14.8 % (11.5-14.5)
[2020-12-28 06:24] LABS: PLATELET COUNT 36 10x3/uL (130-400)
--- NOTE | 2020-12-28 06:36 | NUR ---
Priscilla WATSON, MANUFACTURING PLANNER NOTIFIED OF CRITICAL PLATELET AT 36. MANUFACTURING PLANNER INFORMED H/H STABLE AND ALL OTHER LABS STABLE. NO OVERT S/S OF BLEEDING NOTIFIED. MANUFACTURING PLANNER VERBALIZED ACKNOWLEDGEMENT, STATED TO HOLD TRANFER TO FLOOR AND PASS ON TO DAY TEAM. NO OTHER ORDERS RECEIVED.
--- NOTE | 2020-12-28 08:30 | NUR ---
DR. GRACE HERE FOR ROUNDS. REPORTED PLT COUNT. SHE ORDERS REPEAT CBC.
--- NOTE | 2020-12-28 09:04 | NUR ---
Nutrition follow-up/reassessment: Pt sleeing at time of RD visit Diet: consistent CHO puree with thin liquids PO intake continues to be poor at this time; pt has been refusing meals Labs reviewed ProcalAmine PPN infusing @ 75 ml/hr Ht: 5" Wt: 168# IBW: 100# +/-10% AdjBW: 53 kg BMI: 32.8 Estimated nutrient needs: 4783-7892 Kcal (25-35 kcal/kg AdjBW of 53 kg) 53-70 g 1.0-1.3 gm protein (1.0-1.3 gm./gm AdjBW) 0216-1802 ml fluid or per MD order Nutrition diagnosis: Inadequate oral intake R/T lethargy AEB observed poor po intake due to pt refusing meals at this time. Goals: - PO intake =/> 60% of meals, snacks - Stable wt +/-5# - Meet at least 75% of estimated fluid needs without fluid overload Intervention: - ProcalAmine PPN @ 75 ml/hr; providin kcal (24-33% estimated kcal needs) 54 gm protein (77-100% estimated protein needs) Procalamine PPN for short-term use; recommend NGT vs PEG tube placement and TF started for long-term nutrition support due to pts continued poor oral intake. RDN will follow-up: 12/30/20
[2020-12-28 10:10] LABS: ANISOCYTOSIS OCC; CRENATED CELLS OCC; PLATELET ESTIMATE DECREASED; ROULEAUX OCC
--- NOTE | 2020-12-28 10:43 | NUR ---
C/O CHEST PAIN, SOB. REPORTED TO DR. ANDERSON. ORDERS RECEIVED.
--- NOTE | 2020-12-28 11:30 | NUR ---
DR. ROONEY HERE TO SEE PT. ORDERS TO D/C TRANSFER AND REEVALUATE WED FOR TRANSFER.
[2020-12-28 11:57] LABS: BASOPHILS 0.1 % (0-2); EOSINOPHILS 0.1 % (0-7); HEMATOCRIT 32.8 % (36.0-48.0); HEMOGLOBIN 10.7 g/dL (12-16); IMMATURE GRANULOCYTES 0.9 % (0-5); LYMPHOCYTE ABS# 0.68 10x3/uL (1.18-3.74); LYMPHOCYTES 4.3 % (15-50); MCH 28.4 pg (26.0-34.0); MCHC 32.6 g/dL (31.0-37.0); MONOCYTES 6.3 % (2-11); NEUTROPHILS 88.3 % (40-80); RBC 3.77 10x6/uL (4.00-5.40); RDW 14.9 % (11.5-14.5); WBC 15.8 10x3/uL (4.8-10.8)
[2020-12-28 12:05] LABS: PLATELET COUNT 35 10x3/uL (130-400)
--- NOTE | 2020-12-28 12:30 | NUR ---
DR. SANJAY HUERTAS WAS REPORTED BY DR. ROONEY TO HER THE PLT COUNT ON REPEAT. SHE ORDERS 1 UNIT OF PLATELETS.
--- NOTE | 2020-12-28 16:05 | NUR ---
OT NOTE: PT COMPLETED SUPINE TO SIT WITH MAX A. PT IS CONFUSED AND REQUIRED EXTENSIVE CUES. PT COMPLETED Cutting Edge Wheels ACTIVITIES WITH FUNCTIONAL TASKS. [id number] THANK YOU,LALA VILLALOBOS
--- NOTE | 2020-12-28 23:27 | NUR ---
ADMITTED TO ROOM 2133 FROM ICU/BED--PT AWAKE, ALERT, CONFUSED. RESP EVEN AND UNLABORED W/02@3L IN PROGRESS. CENTRAL LINE NOTED TO LEFT SUBCLAVIAN W/ PROCAL @ 75CC/HR IN PROGRESS--APPROX 100CC'S LEFT IN BOTTLE. LARGE BRUISE NOTED TO LEFT SIDE PT'S NECK AND REDNESS TO PT'S SKIN FOLDS AND BUTTOCKS. RAMAN CATH PATENT W/CLEAR YELLOW URINE NOTED TO BAG. CALL LENOE IN REACH. NO DISTRESS NOTED.
--- NOTE | 2020-12-28 23:27 | NUR ---
SCD'S IN PLACE UPON ADMISSION
[2020-12-29] VITALS: BP 171/61
[2020-12-29 04:00] VITALS: BP 173/63
--- NOTE | 2020-12-29 04:40 | NUR ---
PROCAL STOPPED FOR APPROX 10 MINUTES--10CC'S BLOOD WITHDREW AND WASTED, 10CC'S BLOOD WITHDREW AND SENT TO LAB FOR TESTING, THEN FLUSHED LINE W/10CC'S NS. PT TOLERATED ALL WELL. PROCAL RESTARTED/ORDER. NO DISTRESS NOTED.
--- NOTE | 2020-12-29 05:05 | NUR ---
LYING IN BED AWAKE, ALERT, CONFUSED--PLEASENT. RESP EVEN AND UNLABORED ON RA. NO DISTRESS NOTED.
[2020-12-29 06:13] LABS: ALBUMIN 1.9 g/dL (3.4-5.0); ANION GAP 9.5 mmol/L (8-16); BILIRUBIN - TOTAL 0.9 mg/dL (0.2-1.3); CALCIUM 8.4 mg/dL (8.5-10.1); CARBON DIOXIDE 26.5 mmol/L (21.0-32.0); CREATININE - SERUM 0.9 mg/dL (0.6-1.3); MAGNESIUM - SERUM 2.1 mg/dL (1.8-2.4); PROTEIN - SERUM 4.9 g/dL (6.4-8.2)
[2020-12-29 07:23] LABS: BASOPHILS 0 % (0-2); EOSINOPHILS 1.1 % (0-7); HEMATOCRIT 27.8 % (36.0-48.0); HEMOGLOBIN 9.2 g/dL (12-16); IMMATURE GRANULOCYTES 0.8 % (0-5); LYMPHOCYTE ABS# 1.05 10x3/uL (1.18-3.74); MCH 28.5 pg (26.0-34.0); MCHC 33.1 g/dL (31.0-37.0); MCV 86.1 fL (80.0-100.0); MONOCYTES 12.2 % (2-11); NEUTROPHIL ABS# 6.48 10x3/uL (1.56-6.13); NEUTROPHILS 73.9 % (40-80); RBC 3.23 10x6/uL (4.00-5.40); RDW 14.6 % (11.5-14.5)
[2020-12-29 07:24] LABS: WBC 8.8 10x3/uL (4.8-10.8)
[2020-12-29 07:44] LABS: PLATELET COUNT 16 10x3/uL (130-400)
[2020-12-29 07:59] VITALS: BP 173/63
[2020-12-29 11:00] VITALS: BP 112/60
--- NOTE | 2020-12-29 14:58 | NUR ---
I have reviewed this patient and I concur with the Shift Assessment completed by the Licensed Practical Nurse today this shift.
--- NOTE | 2020-12-29 15:50 | NUR ---
OT NOTE: PT COMPLETED BED MOB WITH MAX A. PT COMPLETED EOB SITTING WITH MOD A. PT COMPLETED ORAL HYGIENE WITH TOTAL A WITH TOOTHETTE. PT COMPLETED FACE HYGIENE WITH TOTAL A. PT COMPLETED HAIR GROOMING WITH TOTAL A. PT EXHIBITED IMPAIRED ABILITY TO SEQUENCE STEPS FOR SIMPLE ADL TASKS. NURSING NOTIFIED OF SMALL BLOOD BLISTER ON UE. [phone] THANK YOU,LALA VILLALOBOS
--- NOTE | 2020-12-29 15:54 | MORECARE ---
CASE MANAGEMENT DISCHARGE SUMMARY PATIENT: KESHA ROSE UNIT: [id number] ADM DATE: 12/08/20 AGE: 80 : 42 SEX: F ROOM/BED: D.2133 AUTHOR: YAYA CRUZ PHYSICIAN: REFERRING PHYSICIAN: DARLIN PRINCE MD DATE OF SERVICE: 12/29/20 Discharge Plan Patient Name: KESHA ROSE Facility: [facility]:[place] : 1940 Planned Disposition: Anticipated Discharge Date: Discharge Date: Expected LOS: Initial Reviewer: [email or web address] Initial Review Date: 12/08/2020 Generated: 12/29/20 4:54 pm Comments DCP- Discharge Planning Updated by [email or web address]: Tarun Oneal on 12/29/20 2:[address] CM met with spouse of patient, Carlito Rose ([phone]) to complete DC plan and to evaluate needs. At this time patient is unable to discuss DCP. The patient lived at home independently with her spouse until this hospitalization. Mr. Rose stated that at this time, he does not believe his spouse will be able to return home. CM discussed availability of home health, rehab services, and medical equipment. Mr. Rose stated that he does not believe his will be able to participate in 3 hours of PT at this time. Mr. Rose stated that he would like to think about SNF vs IPR. CM left a list of Long Term Facilities and Inpatient Rehab facilities in [place] with Mr. Rose to look over tonight. Mr. Rose declined HHS and DME. Mr. Rose voiced no other needs at this time and is satisfied with DC plan. DC IMM delivered, explained, signed by the patient, and placed in chart. Signed form also left with the patient. CM will continue to follow and will assist as needed with dc plans/needs. DCPIA - Discharge Planning Initial Assessment Updated by [email or web address]: Tarun Oneal on 12/29/20 3:49 pm * Is the patient Alert and Oriented? Yes * How many steps to enter\exit or inside your home? 14 * PCP Carmelo * Pharmacy [facility] * Preadmission Environment Home with Family * ADLs Independent * Equipment Cane Walker * Other Equipment n/a * List name and contact numbers for known caregivers / representatives who currently or will assist patient after discharge: Carlito Rose (spouse) [phone] * Verbal permission to speak to the caregivers and representatives has been obtained from the patient. Yes * Community resources currently utilized None * Please name any agencies selected above. n/a * Additional services required to return to the preadmission environment? Yes * Can the patient safely return to the preadmission environment? Yes * Has this patient been hospitalized within the prior 30 days at any hospital? No Patient Name: KESHA ROSE Page [phone] at 1554 All edits/amendments must be made on the electronic document DICTATION DATE: 12/29/201553 PATIENT SAFETY TECH: ANDREW 12/29/20 155 RPT#: [id number] DC DATE: STATUS: ADM IN [facility] [address] [place] [address] END OF REPORT
[2020-12-29 20:00] VITALS: BP 187/76
--- NOTE | 2020-12-29 21:00 | NUR ---
REPORT RECEIVED, WILL CONT POC. PT UP IN BED, ALERT AND CONFUSED X4. NO S/S OF DISTRESSED OBSERVED. RR EVEN & UNLABORED ON 2L. BED LOCKED AND LOWERED, CL IN REACH. REORIENTED PT AND EXPLAINED USE OF CL. ASSESSMENT COMPLETED AT THIS TIME. WILL CONT TO MONITOR.
[2020-12-30] VITALS: BP 171/65
--- NOTE | 2020-12-30 01:57 | NUR ---
I have reviewed this patient and I concur with the Shift Assessment completed by the Licensed Practical Nurse today this shift.
[2020-12-30 04:00] VITALS: BP 174/75
[2020-12-30 06:10] LABS: ALBUMIN 2.1 g/dL (3.4-5.0); ANION GAP 6.4 mmol/L (8-16); BILIRUBIN - TOTAL 1.18 mg/dL (0.2-1.3); CALCIUM 8.8 mg/dL (8.5-10.1); CARBON DIOXIDE 26.6 mmol/L (21.0-32.0); CREATININE - SERUM 0.9 mg/dL (0.6-1.3)
[2020-12-30 06:29] LABS: BASOPHILS 0 % (0-2); EOSINOPHILS 2.1 % (0-7); HEMATOCRIT 28.9 % (36.0-48.0); HEMOGLOBIN 9.6 g/dL (12-16); IMMATURE GRANULOCYTES 0.7 % (0-5); LYMPHOCYTE ABS# 1.16 10x3/uL (1.18-3.74); LYMPHOCYTES 16.5 % (15-50); MCH 28.1 pg (26.0-34.0); MCHC 33.2 g/dL (31.0-37.0); MCV 84.5 fL (80.0-100.0); MONOCYTES 10.8 % (2-11); NEUTROPHIL ABS# 4.93 10x3/uL (1.56-6.13); NEUTROPHILS 69.9 % (40-80); RBC 3.42 10x6/uL (4.00-5.40); RDW 14.5 % (11.5-14.5); WBC 7.1 10x3/uL (4.8-10.8)
[2020-12-30 06:35] LABS: PLATELET COUNT 12 10x3/uL (130-400)
--- NOTE | 2020-12-30 07:30 | NUR ---
LYING IN BED, AWAKE/ALERT/CONFUSED, T/R TO LEFT SIDE, FC PATENT AND DRAINING CONCENTRATED YELLOW URINE TO CDB IN AMPLE AMT, CATH CARE PROVIDED WITH DAILY BATH AND PRN, INCONT OF BOWEL WITH USE OF INCONT PADS, PERICARE PROVIDED WITH DAILY BATH AND PRN, DENIES PAIN/OTHER DISCOMFORT AT THIS TIME, CALL LIGHT/PHONE/WATER WITHIN REACH, NO S/S OF ACUTE DISTRESS OBSERVED.
[2020-12-30 08:00] VITALS: BP 169/72
--- NOTE | 2020-12-30 11:30 | NUR ---
PLATELETS COMPLETE, DR. GRACE ORDERED RECHECK OF CBC AT 1900 AND ASKED SHE BE CALLED WITH RESULTS, ORDER READ BACK AND PUT IN.
--- NOTE | 2020-12-30 12:15 | NUR ---
Nutrition Reassessment/Follow-up: Pt confused. Poor PO intake reported. Continues to receive Procal @ 75 mL/hr; provides 441 kcal (24-33% est needs) & 54 g protein (77-100% est needs). Diet: Diabetic, Puree, Thin Liquids No new wt; last wt: 168# (12/26) Labs noted: Na 134, Glu 115, Alb 2.1 Meds noted: Solumedrol, Humalog, Lasix, Protonix, electrolyte protocol -Nutrition needs unchanged; no new wt available. -Pt has been on Procal x 9 days; only appropriate for short-term use and inadequate to meet pt's needs. Rec initiate TF via NGT vs PEG for more long- term nutrition support 2/2 ongoing poor PO intake. -Need new wt. -RD follow-up: 01/01
[2020-12-30 15:00] VITALS: BP 130/60
--- NOTE | 2020-12-30 16:00 | NUR ---
OT NOTE: PT REMAINS CONFUSED.. INCONSISTENT WITH ABILITY TO FOLLOW 1 STEP COMMANDS. PROVIDED PT WITH CERTAIN OBJECTS INCLUDING BRUSH, TOOTHBRUSH, WASHCLOTH, ETC.. HER AUTOMATIC RESPONSE TO OBJECTS WAS ONLY FAIR. PT UNABLE TO ACCURATELY USE BRUSH OR TOOTHBRUSH..WAS ABLE TO USE WASHCLOTH WITH MIN ASSIST. LESS VEERBALIZATION TODAY. MAX ASSIST WITH BED MOB AND MIN ASSIST FOR STATIC SITTING. VANNESA JALLOH, OTR/L [phone]
--- NOTE | 2020-12-30 16:05 | NUR ---
OT NOTE: PT UNABLE TO FOLLOW 1 STEP COMMANDS. PT EXHIBITED INCREASED VERBAL ENGAGEMENT. PT REQUIRED TOTAL A FOR HAIR GROOMING. PT REQUIRED TOTAL A FOR FACE AND HAND HYGIENE. PT COMPLETED ORAL CARE WITH HUBERTETTE WITH TOTAL A. PT REQUIRED MAX A X2 FOR POSITIONING IN BED. [phone] THANK YOU,LALA VILLALOBOS
[2020-12-30 19:37] LABS: BASOPHILS 0 % (0-2); EOSINOPHILS 0.1 % (0-7); HEMATOCRIT 28.8 % (36.0-48.0); HEMOGLOBIN 9.7 g/dL (12-16); IMMATURE GRANULOCYTES 0.8 % (0-5); LYMPHOCYTE ABS# 0.42 10x3/uL (1.18-3.74); LYMPHOCYTES 5.8 % (15-50); MCH 28.6 pg (26.0-34.0); MCHC 33.7 g/dL (31.0-37.0); MONOCYTES 5.6 % (2-11); NEUTROPHIL ABS# 6.37 10x3/uL (1.56-6.13); NEUTROPHILS 87.7 % (40-80); RBC 3.39 10x6/uL (4.00-5.40); RDW 14.5 % (11.5-14.5); WBC 7.3 10x3/uL (4.8-10.8)
[2020-12-30 19:38] LABS: PLATELET COUNT 13 10x3/uL (130-400)
--- NOTE | 2020-12-30 19:53 | NUR ---
PATIENT LYINGSEMI FOWLERS AWAKE AND ALERT WITH SOME CONFUSION TO TIME AND PLACE, RESP EVEN AND NO LABORED, NO S/S OF DISTRESS, PO MEDICATIONS AND IV FLUIDS ADMINISTERED WITH NO COMPLICATIONS, LAB DRAW COMPLETED OUT OF WHITE PORT, FLUSHED WITH 10CC, DC 10CC OF BLOOD, SECOND 10CC OF BLOOD DRAW SUCCESSFUL, FLUSHED 10CC AND LOCKED WITH ORANGE CAP APPLIED, NO FURTHER NEEDS AT THIS TIME, CLIR, BLP
[2020-12-30 20:00] VITALS: BP 158/63
--- NOTE | 2020-12-30 20:15 | NUR ---
PT RECEIVED 1 BAG OF PLTS PER DR. GRACE'S ORDERS DUE TO CRITICAL PLT OF 12. RECEIVED NEW CRITICAL PLT OF 13. SPOKE WITH DR. GRACE ABOUT CRITICAL PLT. DR. GRACE ORDERED COAGS TO BE COMPLETED WITH AM LABS. NO NEW ORDERS GIVEN AT THIS TIME.
--- NOTE | 2020-12-31 02:42 | NUR ---
I have reviewed this patient and I concur with the Shift Assessment completed by the Licensed Practical Nurse today this shift.
--- NOTE | 2020-12-31 04:29 | NUR ---
PATIENT REFUSED BP, SUGAR CHECK, AND BLOOD DRAW FOR THIS MORNING LABS, PATIENT EDUCATED ON THE IMPORTANCE OF NEEDING THESE AND STILL REFUSED, NO FURTHER NEEDS AT THIS TIME, TAMEKA CHOUDHARY
[2020-12-31 06:29] LABS: BASOPHILS 0 % (0-2); EOSINOPHILS 3.2 % (0-7); HEMATOCRIT 29.2 % (36.0-48.0); HEMOGLOBIN 9.7 g/dL (12-16); IMMATURE GRANULOCYTES 0.7 % (0-5); LYMPHOCYTE ABS# 1.04 10x3/uL (1.18-3.74); LYMPHOCYTES 17.2 % (15-50); MCH 28.1 pg (26.0-34.0); MCHC 33.2 g/dL (31.0-37.0); MCV 84.6 fL (80.0-100.0); MONOCYTES 11.3 % (2-11); NEUTROPHIL ABS# 4.08 10x3/uL (1.56-6.13); NEUTROPHILS 67.6 % (40-80); RBC 3.45 10x6/uL (4.00-5.40); RDW 14.8 % (11.5-14.5)
[2020-12-31 06:32] LABS: PLATELET COUNT 16 10x3/uL (130-400); PLATELET ESTIMATE DECREASED
[2020-12-31 06:42] LABS: APTT 25.2 SECONDS (22.8-39.4); INR 1.2 (0.85-1.17); PROTIME 14.1 SECONDS (11.6-15.0)
[2020-12-31 06:51] LABS: ANION GAP 8.9 mmol/L (8-16); CALCIUM 8.8 mg/dL (8.5-10.1); CARBON DIOXIDE 25.2 mmol/L (21.0-32.0); CREATININE - SERUM 0.8 mg/dL (0.6-1.3); POTASSIUM - SERUM 4.1 mmol/L (3.5-5.1)
[2020-12-31 08:27] VITALS: BP 159/55
[2020-12-31 12:24] VITALS: BP 115/52
--- NOTE | 2020-12-31 12:33 | NUR ---
OT NOTE: ATTEMPTED TO SEE PT LATER IN AM, HOWEVER, NURSING REPORTS THAT SHE IS LETHARGIC DUE TO PROCEDURE EARLIER IN THE MORNING. AT BEDSIDE; ATTEMPTED TO AWAKEN PT BUT SHE COULD NOT STAY AWAKE. WILL ATTEMPT IN PM VANNESA JALLOH,OTR/L
--- NOTE | 2020-12-31 13:20 | NUR ---
SINCE BONE MARROW BX PT IS SLEEPY. BP WAS IN 120S. APPLIED CLONIDINE PATCH AND BP DROPPED TO 80S. REMOVED PATCH. NOW LOW 100S. PT STILL LETHARGIC.
--- NOTE | 2020-12-31 14:43 | NUR ---
OT NOTE: PT AWAKE BUT REQUIRED EXTENSIVE CUES FOR ATTENTION TO TASKS. PT COMPLETED POSITIONING WITH MAX A. PT REQUIRED TOTAL A FOR ORAL CARE AND HAIR GROOMING. NURSING NOTIFIED. [phone] THANK YOU,LALA VILLALOBOS
[2020-12-31 17:01] VITALS: BP 126/59
[2020-12-31 19:33] VITALS: BP 117/55
--- NOTE | 2020-12-31 21:00 | NUR ---
PATIENT LYING IN BED SUPINE. NO S/S OF DISTRESS. ASSESSMENT COMPLETE. CLIR. BED IN LOWEST POSITION. WILL CONT TO MONITOR.
--- NOTE | 2021-01-01 | NUR ---
PATIENT SLEEPING. NO S/S OF DISTRESS. CLIR. BED IN LOWEST POSITION. WILL CONT TO MONITOR.
[2021-01-01 04:12] VITALS: BP 145/75
[2021-01-01 04:16] LABS: BASOPHILS 0 % (0-2); EOSINOPHILS 2.2 % (0-7); HEMATOCRIT 30.6 % (36.0-48.0); HEMOGLOBIN 10.2 g/dL (12-16); LYMPHOCYTE ABS# 1.29 10x3/uL (1.18-3.74); LYMPHOCYTES 15.5 % (15-50); MCH 28.7 pg (26.0-34.0); MCHC 33.3 g/dL (31.0-37.0); MCV 86.2 fL (80.0-100.0); MONOCYTES 11.8 % (2-11); NEUTROPHIL ABS# 5.79 10x3/uL (1.56-6.13); NEUTROPHILS 69.5 % (40-80); RBC 3.55 10x6/uL (4.00-5.40)
[2021-01-01 04:29] LABS: ALBUMIN 2.4 g/dL (3.4-5.0); ANION GAP 9.5 mmol/L (8-16); BILIRUBIN - TOTAL 1.27 mg/dL (0.2-1.3); CALCIUM 9.1 mg/dL (8.5-10.1); CARBON DIOXIDE 27.5 mmol/L (21.0-32.0); CREATININE - SERUM 0.9 mg/dL (0.6-1.3); PROTEIN - SERUM 5.4 g/dL (6.4-8.2)
[2021-01-01 04:44] LABS: WBC 8.3 10x3/uL (4.8-10.8)
[2021-01-01 04:46] LABS: PLATELET COUNT 33 10x3/uL (130-400)
[2021-01-01 08:50] VITALS: BP 136/52
[2021-01-01 13:24] VITALS: BP 114/50
--- NOTE | 2021-01-01 13:49 | NUR ---
Nutrition Follow-up: Not eating well. Receiving Procal @ 75 mL/hr. Awaiting family decision on PEG vs palliative/hospice. Diet: Diabetic No new wt; last wt: 168# (12/26) Labs noted: Glu 82, Alb 2.4 Meds noted: Solumedrol, Lasix, Protonix, Humalog, electrolyte protocol -Rec PEG placement if not going to be hospice. -Need new wt. -RD will follow up within 3-4 days.
--- NOTE | 2021-01-01 15:24 | NUR ---
OT NOTE: PT DID EXCELLENT TODAY. PT REQUIRED MIN-MOD A FOR SUPINE TO SIT. PT COMPLETED SITTING BALANCE WITH CGA. PT COMPLETED SIT TO STAND MOD-MAXA. PT COMPLETED FACE HYGIENE WITH MIN A AND MAX VERBAL CUES. [phone] THANK YOU,LALA VILLALOBOS
[2021-01-01 16:44] VITALS: BP 112/47
--- NOTE | 2021-01-01 20:10 | NUR ---
PT LYING IN BED AWAKE, ALERT CONFUSED DENIES PAIN, NO DISTRESS NOTED WILL CONTINUE TO MONITOR
--- NOTE | 2021-01-01 20:30 | NUR ---
PT CONFUSED PULLING AT CVL AND RAMAN LINES, OPSITE AND STAT LOCK REPLACED. PT AWAKE CONFUSED NO DISTRESS NOTED WILL CONTNUE TO MONITOR
[2021-01-01 20:37] VITALS: BP 131/47
--- NOTE | 2021-01-01 23:05 | NUR ---
DBP 47 called to Reshma GOODEN advised to give cardene as ordered
--- NOTE | 2021-01-02 00:30 | NUR ---
PT NOTED TO BE PULLING AT CVL AGAIN, OPSITE REINFORCED, PT PUSHING NURSES HANDS AWAY WHEN REINFORCING DRESSING. TELLING NURSE NOT TO DO THAT.
--- NOTE | 2021-01-02 02:47 | NUR ---
PT PULLED OPSITE FROM CVL LINE AND STATLOCK FROM LEG. PUSHING NURSE HANDS AWAY, GRIPPING HANDS, BECOMING AGITATED WHEN NURSE ATTEMPTED TO CHECK CVL AND IV LINES. COTNINUES TO BE CONFUSED BECOMING MORE AGITATED. CONTINUING TO PULL AT CVL AND RAMAN LINES
--- NOTE | 2021-01-02 03:10 | NUR ---
VIJAYA AVITIA GIVEN D/T AGITATION PULLING AT CVL AND RAMAN LINES
--- NOTE | 2021-01-02 04:46 | NUR ---
LABS DRAWN VIA LEFT CVL, PT RESTING QUIETLY APPEARS ASLEEP OPCITE CDI, NO DISTRESS NOTED WILL CONTINUE TO MONITOR
[2021-01-02 05:03] LABS: BASOPHILS 0 % (0-2); EOSINOPHILS 2.2 % (0-7); HEMATOCRIT 29.6 % (36.0-48.0); HEMOGLOBIN 9.8 g/dL (12-16); LYMPHOCYTE ABS# 1.41 10x3/uL (1.18-3.74); LYMPHOCYTES 17.2 % (15-50); MCH 28.6 pg (26.0-34.0); MCHC 33.1 g/dL (31.0-37.0); MCV 86.3 fL (80.0-100.0); MEAN PLATELET VOLUME 11.4 fL (7.4-10.4); MONOCYTES 10.6 % (2-11); NEUTROPHIL ABS# 5.66 10x3/uL (1.56-6.13); RBC 3.43 10x6/uL (4.00-5.40); RDW 15.3 % (11.5-14.5); WBC 8.2 10x3/uL (4.8-10.8)
[2021-01-02 05:04] LABS: PLATELET COUNT 45 10x3/uL (130-400)
[2021-01-02 05:37] LABS: ALBUMIN 2.3 g/dL (3.4-5.0); ANION GAP 11.4 mmol/L (8-16); BILIRUBIN - TOTAL 1.07 mg/dL (0.2-1.3); CARBON DIOXIDE 24.3 mmol/L (21.0-32.0); CREATININE - SERUM 0.9 mg/dL (0.6-1.3); MAGNESIUM - SERUM 2.1 mg/dL (1.8-2.4); POTASSIUM - SERUM 3.7 mmol/L (3.5-5.1); PROTEIN - SERUM 5.2 g/dL (6.4-8.2)
[2021-01-02 08:53] VITALS: BP 125/47
[2021-01-02 11:49] VITALS: BP 129/51
[2021-01-02 16:49] VITALS: BP 116/54
[2021-01-02 22:19] VITALS: BP 139/62
--- NOTE | 2021-01-02 22:31 | NUR ---
PT IS LAYING SUPINE IN BED. PT WAS MOVED UP IN BED AND OFFERED DINNER. PT DID NOT LIKE FOOD BUT KEPT HER ROLL AND WAS FEEDING IT TO HERSELF. PT IS CONFUSED AND WAS NOT ABLE TO ANSWER ANY OF MY QUESTIONS. PT UOP IN RAMAN WAS 200ML AND EMPTIED. PT GIVEN SODA TO TAKE MEDS AND SWALLOWED BOTH WITH NO PROBLEM. PT AWAKE AND DID NOT WANT TV ON OR LIGHT OFF. BS 168 TREATED WITH SLIDING SCALE ORDERS. IV INTACT AND INFUSING PROCAL AT 75ML/HR.
[2021-01-03 00:30] VITALS: BP 145/52
[2021-01-03 04:30] VITALS: BP 136/57
[2021-01-03 05:04] LABS: BASOPHILS 0 % (0-2); EOSINOPHILS 1.2 % (0-7); HEMATOCRIT 30.6 % (36.0-48.0); HEMOGLOBIN 10.2 g/dL (12-16); IMMATURE GRANULOCYTES 1.1 % (0-5); LYMPHOCYTE ABS# 1.37 10x3/uL (1.18-3.74); LYMPHOCYTES 12.8 % (15-50); MCH 28.7 pg (26.0-34.0); MCHC 33.3 g/dL (31.0-37.0); MCV 86.2 fL (80.0-100.0); MEAN PLATELET VOLUME 11.1 fL (7.4-10.4); MONOCYTES 10.1 % (2-11); NEUTROPHIL ABS# 7.99 10x3/uL (1.56-6.13); NEUTROPHILS 74.8 % (40-80); PLATELET COUNT 54 10x3/uL (130-400); RBC 3.55 10x6/uL (4.00-5.40); RDW 15.3 % (11.5-14.5)
[2021-01-03 05:05] LABS: WBC 10.7 10x3/uL (4.8-10.8)
[2021-01-03 05:35] LABS: ALBUMIN 2.3 g/dL (3.4-5.0); ANION GAP 8.5 mmol/L (8-16); BILIRUBIN - TOTAL 1.13 mg/dL (0.2-1.3); CALCIUM 9.2 mg/dL (8.5-10.1); CARBON DIOXIDE 26.4 mmol/L (21.0-32.0); MAGNESIUM - SERUM 2.1 mg/dL (1.8-2.4); POTASSIUM - SERUM 3.9 mmol/L (3.5-5.1); PROTEIN - SERUM 5.4 g/dL (6.4-8.2)
--- NOTE | 2021-01-03 08:57 | NUR ---
AM MEDS GIVEN AT THIS TIME, PT TOOK ALL MEDICATIONS WITH NO TROUBLE SWALLOWING. PT ALERT BUT CONFUSED. RESP EVEN AND NONLABORED ON RA. LT CHEST CVL INFUSING PROCALAMINE AT 75CC/HR. RAMAN DRAINING YELLOW URINE TO GRAVITY. PT DENIES ANY NEEDS AT THIS TIME.BEDSIDE RAILS X2, BED ALARM ON, CALL LIGHT IN REACH.
--- NOTE | 2021-01-03 11:26 | NUR ---
BLOOD SUGAR OF 186, 2UNITS GIVEN PER S/S. PT RESTING COMFORTABLY WITH EYES CLOSED, NAD NOTED, CALL LIGHT IN REACH.
[2021-01-03 12:49] VITALS: BP 123/56
--- NOTE | 2021-01-03 16:24 | NUR ---
BLOOD SUGAR OF 208, 4UNITS GIVEN PER S/S. PT DENIES ANY NEEDS AT THIS TIME CALL LIGHT IN REACH.
[2021-01-03 20:00] VITALS: BP 131/54
--- NOTE | 2021-01-03 20:02 | NUR ---
Assumed care of pt after report/rounds. Pt just finished up woth RT and lying in bed resting. Alert but not oreinted. Pleasant and cooperative with cares and can follow simple instructions and directions. Denies pain/discomfort and no s/sx of same observed on assessment. IV infusing per order and pacheco draining.
[2021-01-04 04:00] VITALS: BP 134/44
[2021-01-04 08:43] VITALS: BP 138/94
[2021-01-04 10:05] LABS: BASOPHILS 0.1 % (0-2); EOSINOPHILS 1.6 % (0-7); HEMOGLOBIN 10.9 g/dL (12-16); IMMATURE GRANULOCYTES 1.1 % (0-5); LYMPHOCYTE ABS# 2.25 10x3/uL (1.18-3.74); LYMPHOCYTES 15.1 % (15-50); MCH 29.3 pg (26.0-34.0); MEAN PLATELET VOLUME 11.9 fL (7.4-10.4); MONOCYTES 9.5 % (2-11); NEUTROPHIL ABS# 10.78 10x3/uL (1.56-6.13); NEUTROPHILS 72.6 % (40-80); RBC 3.72 10x6/uL (4.00-5.40); RDW 15.9 % (11.5-14.5)
[2021-01-04 10:08] LABS: MCV 88.7 fL (80.0-100.0); WBC 14.9 10x3/uL (4.8-10.8)
[2021-01-04 10:12] LABS: PLATELET COUNT 49 10x3/uL (130-400)
[2021-01-04 10:30] LABS: ALBUMIN 2.4 g/dL (3.4-5.0); ANION GAP 10.4 mmol/L (8-16); BILIRUBIN - TOTAL 1.23 mg/dL (0.2-1.3); CALCIUM 9.5 mg/dL (8.5-10.1); CARBON DIOXIDE 23.3 mmol/L (21.0-32.0); POTASSIUM - SERUM 3.7 mmol/L (3.5-5.1); PROTEIN - SERUM 5.6 g/dL (6.4-8.2)
[2021-01-04 12:20] VITALS: BP 130/50
[2021-01-04 13:52] LABS: PLATELET ESTIMATE DECREASED
[2021-01-04 13:53] LABS: ANISOCYTOSIS OCC; ROULEAUX OCC
--- NOTE | 2021-01-04 15:45 | MORECARE ---
CASE MANAGEMENT DISCHARGE SUMMARY PATIENT: KESHA ROSE UNIT: [id number] ADM DATE: 12/08/20 AGE: 80 : 42 SEX: F ROOM/BED: D.2133 AUTHOR: NANCYDOC PHYSICIAN: REFERRING PHYSICIAN: DARLIN PRINCE MD DATE OF SERVICE: 01/04/21 Discharge Plan Patient Name: KESHA ROSE Facility: [facility]:[place] : 1940 Planned Disposition: Anticipated Discharge Date: Discharge Date: Expected LOS: Initial Reviewer: [email or web address] Initial Review Date: 12/08/2020 Generated: 01/04/21 4:45 pm Comments DCP- Discharge Planning Updated by [email or web address]: Yulia Chand on 01/04/21 1:[address] CM met with patient in the room, her is not present. She would be unable to tell me what rehab to send a referral to. I called patient's with no answer and his voice mail has not been set up yet. CM to try and contact again concerning which SNF to refer his to. DCP- Discharge Planning Updated by [email or web address]: Tarun Oneal on 12/29/20 1:[address] CM met with spouse of patient, Carlito Rose ([phone]) to complete DC plan and to evaluate needs. At this time patient is unable to discuss DCP. The patient lived at home independently with her spouse until this hospitalization. Mr. Rose stated that at this time, he does not believe his spouse will be able to return home. CM discussed availability of home health, rehab services, and medical equipment. Mr. Rose stated that he does not believe his will be able to participate in 3 hours of PT at this time. Mr. Rose stated that he would like to think about SNF vs IPR. CM left a list of Fdc Facilities and Inpatient Rehab facilities in [place] with Mr. Rose to look over tonight. Mr. Rose declined HHS and DME. Mr. Rose voiced no other needs at this time and is satisfied with DC plan. DC IMM delivered, explained, signed by the patient, and placed in chart. Signed form also left with the patient. CM will continue to follow and will assist as needed with dc plans/needs. DCPIA - Discharge Planning Initial Assessment Updated by FIDELIA: Tarun Oneal on 12/29/20 3:49 pm * Is the patient Alert and Oriented? Yes * How many steps to enter\exit or inside your home? 14 * PCP Carmelo * Pharmacy [facility] * Preadmission Environment Home with Family * ADLs Independent * Equipment Cane Walker * Other Equipment n/a * List name and contact numbers for known caregivers / representatives who currently or will assist patient after discharge: Carlito Rose (spouse) [phone] * Verbal permission to speak to the caregivers and representatives has been obtained from the patient. Yes * Community resources currently utilized None * Please name any agencies selected above. n/a * Additional services required to return to the preadmission environment? Yes * Can the patient safely return to the preadmission environment? Yes * Has this patient been hospitalized within the prior 30 days at any hospital? No Coverage Notice Reviewer: FIDELIA - Tarun Oneal Notice Issued Date-Time: 12/29/2020 15:50 Notice Type: IM Discharge Notice Notice Delivered To: Patient Relationship to Patient: Self Packaging Line Operator Name: Delivery Method: HAND - Hand Delivered Génesis Days: Prior Verbal Notification: Recipient Understood Notice: Yes Recipient Signature: Yes Med Rec Note Co-signed by Attending: Coverage Notice Comment: DC IMM delivered, explained, signed by the patient, and placed in chart. Signed form also left with the patient Last DP export: 12/29/20 1:54 pm Patient Name: KESHA ROSE Page [id number] at 1545 All edits/amendments must be made on the electronic document DICTATION DATE: 01/04/21 1549 IMPLEMENTATION ADVISOR: ANDERW 01/04/21 1545 RPT#: [id number] DC DATE: STATUS: ADM IN [facility] [address] [place] [address] END OF REPORT
[2021-01-04 16:57] VITALS: BP 125/55
--- NOTE | 2021-01-04 17:05 | NUR ---
OT NOTE: (AM) PT COMPLETED SUPINE TO SIT WITH MOD-MAX A. PT COMPLETED EOB SITTING BALANCE WITH CGA-MIN A. PT COMPLETED SIT TO STAND WITH MIN-MOD A. PT EXHIBITED GRAVITATIONAL INSECURITY. PT REQUIRED TOTAL A WITH HAIR GROOMING AND USING A HAIR BRUSH. PT UNABLE TO NAME COMMON OBJECTS OR THEIR FUNCTION. (PM) PT REQUIRED MIN-MOD A FOR BED MOB TASKS FOR HYGIENE TASKS. [phone] THANK YOU,LALA VILLALOBOS
[2021-01-04 20:00] VITALS: BP 108/54
--- NOTE | 2021-01-04 20:40 | NUR ---
PT LYING IN BED, AWAKE CONFUSED, ORIENTED TO NAME ONLY, [facility] IS CHRONIC NO DISTRESS NOTED. WILL CONTINUE TO MONITOR
[2021-01-05 04:00] VITALS: BP 141/54
[2021-01-05 07:24] LABS: ALBUMIN 2.7 g/dL (3.4-5.0); ANION GAP 10.5 mmol/L (8-16); BILIRUBIN - TOTAL 1.08 mg/dL (0.2-1.3); CALCIUM 9.6 mg/dL (8.5-10.1); CARBON DIOXIDE 25.7 mmol/L (21.0-32.0); MAGNESIUM - SERUM 2.2 mg/dL (1.8-2.4); POTASSIUM - SERUM 4.2 mmol/L (3.5-5.1); PROTEIN - SERUM 5.6 g/dL (6.4-8.2)
[2021-01-05 09:14] VITALS: BP 145/60
[2021-01-05 09:25] LABS: BASOPHILS 0 % (0-2); EOSINOPHILS 1.7 % (0-7); HEMATOCRIT 31.9 % (36.0-48.0); HEMOGLOBIN 10.7 g/dL (12-16); IMMATURE GRANULOCYTES 1.5 % (0-5); LYMPHOCYTE ABS# 1.56 10x3/uL (1.18-3.74); LYMPHOCYTES 13.4 % (15-50); MCH 28.9 pg (26.0-34.0); MCHC 33.5 g/dL (31.0-37.0); MEAN PLATELET VOLUME 11.1 fL (7.4-10.4); MONOCYTES 8.9 % (2-11); NEUTROPHIL ABS# 8.65 10x3/uL (1.56-6.13); NEUTROPHILS 74.5 % (40-80); RDW 15.6 % (11.5-14.5); WBC 11.6 10x3/uL (4.8-10.8)
[2021-01-05 09:33] LABS: MCV 86.2 fL (80.0-100.0)
[2021-01-05 09:34] LABS: PLATELET COUNT 42 10x3/uL (130-400)
--- NOTE | 2021-01-05 13:19 | NUR ---
Nutrition Reassessment/Follow-up: Poor PO intake. Nursing reports pt ate ~25% of meals yesterday. Continues to receive Procal @ 75 mL/hr (x 15 days); provides 441 kcal (24-33% est needs) & 54 g protein (77-100% est needs) daily. Noted possible d/c to SNF soon. Diet: Diabetic No new wt; last wt: 168# (12/26) Labs noted: Na 135, Glu 97, Alb 2.7 Meds noted: Solumedrol, Humalog, Lasix, Protonix, electrolyte protocol -Nutrition needs unchanged; no new wt available. -Procal only appropriate for short-term nutrition support (<=2 wks) and is not adequate to meet pt's needs. Rec PEG placement. -Need new wt; last wt is from 12/26. -RD follow-up: 01/07
--- NOTE | 2021-01-05 14:39 | NUR ---
OT NOTE: PT DOING BETTER TODAY. PTS LUNCH STILL IN ROOM AND SHE HAD EATEN ABOUT 35%..PT WAS ABLE TO BRUSH HAIR AND ALSO IDENTIFY BRUSH.. ABLE TO WASH FACE AND ABLE TO IDENTIFY WASH CLOTH. SPEECH IMPROVEMENT NOTED TODAY. ABLE TO SPEAK SEVERAL WORD SENTENCES, BUT FREQ WORD FINDING DEFECITS STILL NOTED. PT EXHIBITING IMPROVED FUNCTIONAL USE OF R HAND. IMPROVED ORIENTATION. BED MOB WITH MOD ASSIST BUT ABLE TO FOLLOW COMMANDS WELL. CONT TO RECOMEND IP REHAB VANNESA JALLOH, OTR/L [phone]
[2021-01-05 16:00] VITALS: BP 139/53
--- NOTE | 2021-01-05 19:30 | NUR ---
PT IN BED, EYES CLOSED, RESP EVEN AND UNLABORED, NO DISTRESS NOTED, CL IN REACH, SR UP X 2.
[2021-01-06] VITALS: BP 132/54
--- NOTE | 2021-01-06 03:34 | NUR ---
I have reviewed this patient and I concur with the Shift Assessment completed by the Licensed Practical Nurse today this shift.
[2021-01-06 04:00] VITALS: BP 138/54
[2021-01-06 05:05] LABS: BASOPHILS 0.1 % (0-2); EOSINOPHILS 1.1 % (0-7); IMMATURE GRANULOCYTES 1.2 % (0-5); LYMPHOCYTE ABS# 1.14 10x3/uL (1.18-3.74); LYMPHOCYTES 11.7 % (15-50); MCH 28.8 pg (26.0-34.0); MCHC 33.3 g/dL (31.0-37.0); MCV 86.4 fL (80.0-100.0); MEAN PLATELET VOLUME 10.6 fL (7.4-10.4); MONOCYTES 9.2 % (2-11); NEUTROPHIL ABS# 7.46 10x3/uL (1.56-6.13); NEUTROPHILS 76.7 % (40-80); RBC 3.82 10x6/uL (4.00-5.40); WBC 9.7 10x3/uL (4.8-10.8)
[2021-01-06 05:41] LABS: ALBUMIN 2.7 g/dL (3.4-5.0); ANION GAP 10.7 mmol/L (8-16); CALCIUM 9.6 mg/dL (8.5-10.1); CARBON DIOXIDE 24.7 mmol/L (21.0-32.0); PROTEIN - SERUM 5.8 g/dL (6.4-8.2)
[2021-01-06 05:42] LABS: PLATELET COUNT 39 10x3/uL (130-400)
[2021-01-06 05:46] LABS: POTASSIUM - SERUM 3.4 mmol/L (3.5-5.1)
--- NOTE | 2021-01-06 07:30 | NUR ---
LYING IN BED ON BACK, AWAKE/ALERT/CONFUSED, ENCOURAGED TO T/R FREQ FOR C/C, FC PATENT AND DRAINING CLEAR YELLOW URINE TO CDB IN AMPLE AMT, CATH CARE PROVIDED WITH DAILY BATH AND PRN, INCONT OF BOWEL WITH USE OF INCONT PADS, PERICARE PROVIDED WITH DAILY BATH AND PRN, DENIES PAIN/OTHER DISCOMFORT AT THIS TIME, CALL LIGHT/PHONE/WATER WITHIN REACH, NO S/S OF ACUTE DISTRESS OBSERVED.
[2021-01-06 08:28] VITALS: BP 130/51
[2021-01-06 12:31] VITALS: BP 127/51
--- NOTE | 2021-01-06 15:17 | NUR ---
OT NOTE: PRACTICED FUNCITONAL TASKS WITH R HAND. PT DOING BETTER. MOD/MAX ASSIST WITH GROOMING TASKS. MAX ASSIST WITH PERINEAL CARE; COGNITIVE RETRAINING ACT. VANNESA JALLOH, OTR/L [phone]
[2021-01-06 16:01] VITALS: BP 135/48
--- NOTE | 2021-01-06 19:30 | NUR ---
PT IN BED, EYES CLOSED, RESP EVEN AND UNLABORED, NO DISTRESS NOTED, CL IN REACH, SR UP X 2.
[2021-01-06 20:00] VITALS: BP 127/60
--- NOTE | 2021-01-07 01:32 | NUR ---
CM received information from patient's spouse that he would like to see [facility] [phone]. CM will get InTouch with them about a potential referral. CM will continue to follow and assist as needed with discharge planning needs.
[2021-01-07 04:45] VITALS: BP 120/40
[2021-01-07 05:51] LABS: ALBUMIN 2.5 g/dL (3.4-5.0); ANION GAP 10.4 mmol/L (8-16); BILIRUBIN - TOTAL 1.07 mg/dL (0.2-1.3); CALCIUM 9.3 mg/dL (8.5-10.1); CARBON DIOXIDE 25.4 mmol/L (21.0-32.0); POTASSIUM - SERUM 3.8 mmol/L (3.5-5.1); PROTEIN - SERUM 5.6 g/dL (6.4-8.2)
[2021-01-07 06:22] LABS: BASOPHILS 0.1 % (0-2); EOSINOPHILS 2.5 % (0-7); HEMATOCRIT 32.4 % (36.0-48.0); HEMOGLOBIN 10.7 g/dL (12-16); LYMPHOCYTE ABS# 0.94 10x3/uL (1.18-3.74); LYMPHOCYTES 10.2 % (15-50); MCH 28.9 pg (26.0-34.0); MCV 87.6 fL (80.0-100.0); MONOCYTES 8.7 % (2-11); NEUTROPHIL ABS# 7.15 10x3/uL (1.56-6.13); NEUTROPHILS 77.5 % (40-80); RDW 16.6 % (11.5-14.5); WBC 9.2 10x3/uL (4.8-10.8)
--- NOTE | 2021-01-07 06:23 | NUR ---
LEFT CENTRAL LINE DRSG CHANGED AT THIS TIME, CAPS CHANGED AT THIS TIME.
[2021-01-07 06:24] LABS: PLATELET COUNT 30 10x3/uL (130-400)
--- NOTE | 2021-01-07 06:29 | NUR ---
I have reviewed this patient and I concur with the Shift Assessment completed by the Licensed Practical Nurse today this shift.
--- NOTE | 2021-01-07 07:40 | NUR ---
LYING IN BED, AWAKE/ALERT/CONFUSED, T/R FREQ FOR C/C, FC PATENT AND DRAINING CONCENTRATED URINE TO CDB IN AMPLE AMT, CATH CARE PROVIDED WITH DAILY BATH AND PRN, INCONT OF BOWEL WITH USE OF INCONT PADS, PERICARE PROVIDED WITH DAILY BATH AND PRN, DENIES PAIN/OTHER DISCOMFORT AT THIS TIME, CALL LIGHT/PHONE/WATER WITHIN REACH, NO S/S OF ACUTE DISTRESS OBSERVED.
[2021-01-07 11:00] VITALS: BP 116/60
--- NOTE | 2021-01-07 12:00 | MORECARE ---
CASE MANAGEMENT DISCHARGE SUMMARY PATIENT: KESHA ROSE UNIT: [id number] ADM DATE: 12/08/20 AGE: 80 : 42 SEX: F ROOM/BED: [facility] AUTHOR: NANCY,DOC PHYSICIAN: REFERRING PHYSICIAN: DARLIN PRINCE MD DATE OF SERVICE: 01/07/21 Case Management Discharge Planning Summary COMMENTS ENTERED DATE: 01/07/21 1:24 CT COMMENT TYPE: Discharge Planning REVIEWER: Nadine Magana CM received information from patient's spouse that he would like to see about getting her [facility] [phone]. CM will get InTouch with them about a potential referral. CM will continue to follow and assist as needed with discharge planning needs. DCP REVIEW SUMMARY ANTICIPATED D/C DATE: EXPECTED LOS : CASE STATUS: DCP Initiated INITIAL REVIEW: 01/05/2021 INITIAL REVIEWER: Nadine Magana FINAL DISCHARGE DISPOSITION: : FINAL REVIEWER: FINAL REVIEW DATE: DCP Focus Questions & Answers - Added on: QUESTION: ANSWER : PATIENT: KESHA ROSE ENCOUNTER: [id number] MEDICAL RECORD#: [id number] ADMISSION DATE: 12/08/2020 DISCHARGE DATE: ATTENDING MD: DARLIN LANE : AGE: 80 MARITAL STATUS: M DC PLAN ID: [id number] FACILITY: [facility] PRINTED ON: 01/07/21 12:00 CT All edits/amendments must be made on the electronic document DICTATION DATE: 01/07/21 1200 HHAS: ANDREW 01/07/21 1200 RPT#: [id number] DC DATE: STATUS: ADM IN [facility] [address] [place] [address] END OF REPORT
--- NOTE | 2021-01-07 13:34 | NUR ---
Nutrition Follow-up: Pt confused. Requires feeding assistance; nursing to post sign on door. Continues to receive Procal @ 75 mL/hr. Noted mention of TPN if PO intake does not improve. Diet: Diabetic No new wt; last wt: 168# (12/26) Labs noted: Glu 104, Alb 2.5 Meds noted: Prednisone, Humalog, Protonix, Lasix, electrolyte protocol -Procal inadequate to meet pt's needs and TPN not appropriate 2/2 functional GI tract. Rec NGT vs PEG placement to better meet pt's needs. -Need new wt. - follow-up: 01/11
[2021-01-07 15:00] VITALS: BP 130/72
--- NOTE | 2021-01-07 15:41 | NUR ---
OT NOTE: PT DOING BETTER TODAY; SUPINE TO SIT WITH MOD ASSIST; EOB ACT WITH FREQ CUEING. ADLS WITH EXTENSIVE ASSIST. RECOMMEND REHAB VANNESA JALLOH, OTR/L [phone]
--- NOTE | 2021-01-07 15:53 | NUR ---
PATIENT IS MOD ASST TO GET UP TO BEDSIDE AND TO STAND. PATIENT MOD ASST TO TAKE A FEW STEPS TO CHAIR. PATIENT GETS NERVOUS ABOUT MOVING AROUND WHEN STANDING UP. PATIENT WAS MOD ASST TO STAND FROM CHAIR AND TO TRANSFER BACK TO BED.
--- NOTE | 2021-01-07 17:15 | NUR ---
OT NOTE: PT REQUIRED MOD A FOR CHAIR TO BED TSF. PT COMPLETED SIT TO SUPINE WITH MIN-MOD A. PT COMPLETED BUE AROM ACTIVITIES WITH FUNTIONAL TASKS. PT DID VERY WELL TODAY. 1230-1 URBAN TORREZ COTA
--- NOTE | 2021-01-07 19:30 | NUR ---
PT IN BED, EYES CLOSED, RESP EVEN AND UNLABORED, NO DISTRESS NOTED, CL IN REACH, SR UP X 2.
[2021-01-07 20:07] VITALS: BP 112/59
--- NOTE | 2021-01-08 01:08 | NUR ---
I have reviewed this patient and I concur with the Shift Assessment completed by the Licensed Practical Nurse today this shift.
[2021-01-08 04:00] VITALS: BP 127/52
[2021-01-08 04:47] LABS: BASOPHILS 0 % (0-2); EOSINOPHILS 0.5 % (0-7); HEMATOCRIT 31.4 % (36.0-48.0); HEMOGLOBIN 10.5 g/dL (12-16); IMMATURE GRANULOCYTES 0.9 % (0-5); LYMPHOCYTES 8.6 % (15-50); MCH 29.2 pg (26.0-34.0); MCHC 33.4 g/dL (31.0-37.0); MCV 87.2 fL (80.0-100.0); MEAN PLATELET VOLUME 11.1 fL (7.4-10.4); MONOCYTES 7.8 % (2-11); NEUTROPHIL ABS# 6.72 10x3/uL (1.56-6.13); NEUTROPHILS 82.2 % (40-80); RDW 16.2 % (11.5-14.5); WBC 8.2 10x3/uL (4.8-10.8)
[2021-01-08 05:09] LABS: PLATELET COUNT 26 10x3/uL (130-400)
[2021-01-08 05:12] LABS: ALBUMIN 2.6 g/dL (3.4-5.0); ANION GAP 10.5 mmol/L (8-16); BILIRUBIN - TOTAL 0.86 mg/dL (0.2-1.3); CALCIUM 9.6 mg/dL (8.5-10.1); CARBON DIOXIDE 24.1 mmol/L (21.0-32.0); CREATININE - SERUM 1.1 mg/dL (0.6-1.3); POTASSIUM - SERUM 3.6 mmol/L (3.5-5.1); PROTEIN - SERUM 5.7 g/dL (6.4-8.2)
--- NOTE | 2021-01-08 07:00 | NUR ---
PT LYING IN BED. RESP EVEN AND UNLABORED. AAOX1. CONFUSED TO PLACE, TIME, SITUATION. FC DRAINING CLEAR ADONIS URINE. PT DENIES PAIN OR ANY NEEDS AT THIS TIME. CALL LIGHT AND WATER IN REACH. BED IN LOWEST POSITION. SIDE RAILS X2
[2021-01-08 08:57] VITALS: BP 137/62
--- NOTE | 2021-01-08 14:47 | MORECARE ---
CASE MANAGEMENT DISCHARGE SUMMARY PATIENT: KESHA ROSE UNIT: [id number] ADM DATE: 12/08/20 AGE: 80 : 42 SEX: F ROOM/BED: [facility] AUTHOR: NANCY,DOC PHYSICIAN: REFERRING PHYSICIAN: DARLIN PRINCE MD DATE OF SERVICE: 01/08/21 Case Management Discharge Planning Summary COMMENTS ENTERED DATE: 01/08/21 14:39 CT COMMENT TYPE: Discharge Planning REVIEWER: Louise Lim Faxed referral to [facility] facility per family request Appended by Louise Lim on 01/08/2021 14:41 CDT: ENTERED DATE: 01/07/21 1:24 CT COMMENT TYPE: Discharge Planning REVIEWER: Nadine Magana CM received information from patient's spouse that he would like to see about getting her to [facility]. [phone]. CM will get InTouch with them about a potential referral. CM will continue to follow and assist as needed with discharge planning needs. DCP REVIEW SUMMARY ANTICIPATED D/C DATE: EXPECTED LOS : CASE STATUS: DCP Initiated INITIAL REVIEW: 01/05/2021 INITIAL REVIEWER: Nadine Magana FINAL DISCHARGE DISPOSITION: : FINAL REVIEWER: FINAL REVIEW DATE: WYP Focus Questions & Answers - Added on: QUESTION: ANSWER : PATIENT: KESHA ROSE ENCOUNTER: [id number] MEDICAL RECORD#: [id number] ADMISSION DATE: 12/08/2020 DISCHARGE DATE: ATTENDING MD: DARLIN LANE : AGE: 80 MARITAL STATUS: M DC PLAN ID: [id number] FACILITY: [facility] PRINTED ON: 01/08/21 14:47 CT All edits/amendments must be made on the electronic document DICTATION DATE: 01/08/211446 PUNCH BOX TENDER: ANDREW 01/08/21 144 RPT#: [id number] DC DATE: STATUS: ADM IN [facility] [address] [place] [address] END OF REPORT
[2021-01-08 14:55] VITALS: BP 139/66
--- NOTE | 2021-01-08 15:39 | NUR ---
OT NOTE: PT COMPLETED SUPINE TO SIT WITH MIN-MOD A. PT COMPLETED ADL MOB WITH MIN-MOD A. PT COMPLETED SIT TO STAND WITH MIN A. PT COMPLETED HAIR GROOMING WITH MOD A. PT COMPLETED FACE HYGIENE WITH MIN A. PT IS LESS CONFUSED. [phone] THANK YOU,LALA VILLALOBOS
--- NOTE | 2021-01-08 15:45 | NUR ---
RCVD REPORT ON PT FROM JUNIOR (LORI).
--- NOTE | 2021-01-08 16:11 | NUR ---
I have reviewed this patient and I concur with the Shift Assessment completed by the Licensed Practical Nurse today this shift.
--- NOTE | 2021-01-08 19:10 | NUR ---
REPORT RECEIVED, PT CARE ASSUMED. PT LYING IN BED, AAOX1, ORIENTED TO SELF, WATCHING TV. NO DRSNG TO LEFT IJ, NEW DRSNG PLACED WITH STERILE TECHNIQUE. DENIES ANY NEEDS AT THIS TIME. BED IN LOWEST, SRX3, CALL LIGHT WITHIN REACH, BED ALARM ON. CPOC.
[2021-01-08 20:57] VITALS: BP 119/59
[2021-01-09 06:14] VITALS: BP 143/51
[2021-01-09 06:32] LABS: BASOPHILS 0 % (0-2); EOSINOPHILS 0.3 % (0-7); HEMOGLOBIN 10.4 g/dL (12-16); IMMATURE GRANULOCYTES 0.6 % (0-5); LYMPHOCYTE ABS# 1.03 10x3/uL (1.18-3.74); LYMPHOCYTES 10.6 % (15-50); MCH 29.2 pg (26.0-34.0); MCHC 33.5 g/dL (31.0-37.0); MCV 87.1 fL (80.0-100.0); MEAN PLATELET VOLUME 11.4 fL (7.4-10.4); MONOCYTES 6.4 % (2-11); NEUTROPHIL ABS# 7.99 10x3/uL (1.56-6.13); NEUTROPHILS 82.1 % (40-80); RBC 3.56 10x6/uL (4.00-5.40); RDW 16.3 % (11.5-14.5); WBC 9.7 10x3/uL (4.8-10.8)
--- NOTE | 2021-01-09 07:00 | NUR ---
AM rounds made, no needs voiced, call light/phone/water within reach, no s/s of acute distress observed.
[2021-01-09 08:06] LABS: ALBUMIN 2.7 g/dL (3.4-5.0); ANION GAP 14.4 mmol/L (8-16); BILIRUBIN - TOTAL 0.79 mg/dL (0.2-1.3); CALCIUM 9.7 mg/dL (8.5-10.1); CARBON DIOXIDE 21.9 mmol/L (21.0-32.0); CREATININE - SERUM 1.2 mg/dL (0.6-1.3); POTASSIUM - SERUM 3.3 mmol/L (3.5-5.1); PROTEIN - SERUM 5.6 g/dL (6.4-8.2)
[2021-01-09 08:20] LABS: PLATELET COUNT 40 10x3/uL (130-400)
[2021-01-09 09:05] LABS: PLATELET ESTIMATE DECREASED
[2021-01-09 09:37] VITALS: BP 129/56
[2021-01-09 17:08] VITALS: BP 135/63
[2021-01-09 20:52] VITALS: BP 135/63
[2021-01-10 05:41] VITALS: BP 134/71
[2021-01-10 08:03] LABS: BASOPHILS 0 % (0-2); EOSINOPHILS 1.4 % (0-7); HEMOGLOBIN 11.9 g/dL (12-16); IMMATURE GRANULOCYTES 0.5 % (0-5); LYMPHOCYTE ABS# 1.14 10x3/uL (1.18-3.74); LYMPHOCYTES 9.7 % (15-50); MCH 29.8 pg (26.0-34.0); MCV 87.7 fL (80.0-100.0); MEAN PLATELET VOLUME 11.2 fL (7.4-10.4); NEUTROPHILS 80.4 % (40-80); RBC 3.99 10x6/uL (4.00-5.40); RDW 16.7 % (11.5-14.5); WBC 11.8 10x3/uL (4.8-10.8)
[2021-01-10 08:08] LABS: PLATELET COUNT 42 10x3/uL (130-400)
[2021-01-10 08:12] LABS: ANION GAP 11.8 mmol/L (8-16); BILIRUBIN - TOTAL 1.22 mg/dL (0.2-1.3); CALCIUM 9.9 mg/dL (8.5-10.1); CARBON DIOXIDE 25.1 mmol/L (21.0-32.0); CREATININE - SERUM 1.5 mg/dL (0.6-1.3); PROTEIN - SERUM 6.3 g/dL (6.4-8.2)
[2021-01-10 08:14] LABS: POTASSIUM - SERUM 2.9 mmol/L (3.5-5.1)
[2021-01-10 09:28] VITALS: BP 122/68
[2021-01-10 16:32] VITALS: BP 117/57
--- NOTE | 2021-01-10 19:20 | NUR ---
REPORT RECEIVED, PT CARE ASSUMED. PT LYING IN BED WITH EYES CLOSED, RR EVEN AND NONLABORED, NAD OBSERVED. AROUSES EASILY TO VOICE, DENIES ANY NEEDS AT THIS TIME. BED LOWEST, SRX3, CL WITHIN REACH, BED ALARM ON. CPOC.
[2021-01-10 20:30] VITALS: BP 115/55
[2021-01-11 00:30] VITALS: BP 106/52
[2021-01-11 04:30] VITALS: BP 120/48
[2021-01-11 06:29] LABS: ALBUMIN 2.8 g/dL (3.4-5.0); ANION GAP 11.5 mmol/L (8-16); BILIRUBIN - TOTAL 0.92 mg/dL (0.2-1.3); CALCIUM 9.8 mg/dL (8.5-10.1); CARBON DIOXIDE 24.1 mmol/L (21.0-32.0); CREATININE - SERUM 1.4 mg/dL (0.6-1.3); POTASSIUM - SERUM 3.6 mmol/L (3.5-5.1); PROTEIN - SERUM 5.9 g/dL (6.4-8.2)
[2021-01-11 07:03] LABS: BASOPHILS 0 % (0-2); EOSINOPHILS 0.8 % (0-7); HEMATOCRIT 31.2 % (36.0-48.0); HEMOGLOBIN 10.4 g/dL (12-16); IMMATURE GRANULOCYTES 0.4 % (0-5); LYMPHOCYTE ABS# 0.84 10x3/uL (1.18-3.74); LYMPHOCYTES 9.2 % (15-50); MCH 29.3 pg (26.0-34.0); MCHC 33.3 g/dL (31.0-37.0); MCV 87.9 fL (80.0-100.0); MEAN PLATELET VOLUME 11.8 fL (7.4-10.4); MONOCYTES 6.6 % (2-11); NEUTROPHIL ABS# 7.58 10x3/uL (1.56-6.13); RBC 3.55 10x6/uL (4.00-5.40); RDW 16.9 % (11.5-14.5); WBC 9.1 10x3/uL (4.8-10.8)
[2021-01-11 07:07] LABS: PLATELET COUNT 35 10x3/uL (130-400)
[2021-01-11 08:21] VITALS: BP 119/57
[2021-01-11 12:36] VITALS: BP 135/63
--- NOTE | 2021-01-11 13:37 | NUR ---
Nutrition Reassessment/Follow-up: Pt confused. Spoke with in room who reports PO intake is improving. Noted PO intake this AM was 50% per record. Renal function noted. Procal was decreased to 60 mL/hr on 01/08 per MD; provides 353 kcal (20-24% est needs) & 43 g protein (72-96% est needs) daily. Agreed to try Glucerna at lunch today. Diet: Diabetic No new wt; last wt: 168# (12/26)Adj. BW: 128.3# Labs noted: BUN 68, Cre 1.4, GFR 38, Glu 118, Alb 2.8 Meds noted: Lasix, KDur, Humalog, Prednisone, Protonix, electrolyte protocol Est needs: 1324-1387 kcal/day (25-30 kcal/kg adjusted BW) 45-60 g protein/day (0.6-0.8 g/kg actual BW) 2654-6233 mL H2O/day (1 mL/kcal) or per MD -Encourage PO intake and honor food preferences within diet restrictions. -Glucerna sent with lunch today for pt trial. -May need to continue to decrease Procal if PO intake does continue to improve. -Need new wt. -RD will follow up within 2-3 days.
[2021-01-11 16:01] VITALS: BP 115/55
--- NOTE | 2021-01-11 16:54 | NUR ---
OT NOTE: (AM) PT DID WELL TODAY. PT COMPLETED SUPINE TO SIT WITH MIN A. PT COMPLETED ADL MOB USING R/W REQUIRED MIN A. PT COMPLETED BUE AROM WITH WALKER MANAGEMENT. PT COMPLETED FACE HYGIENE WITH SETUP. PT IS MORE ALERT. (PM) PT COMPLETED SIT TO STAND WITH MIN A. PT COMPLETED SITTING BALANCE WITH FUNCTIONAL REACHING WITH CGA. PT COMPLETED LACHELLE SOCKS WITH MAX A. [phone];3020-1 THANK YOU,LALA VILLALOBOS
--- NOTE | 2021-01-11 19:30 | NUR ---
PT IN BED, PLEASANTLY CONFUSED, RESP EVEN AND UNLABORED, NO DISTRESS NOTED, CL IN REACH, SR UP X 2.
[2021-01-11 20:00] VITALS: BP 120/53
--- NOTE | 2021-01-12 03:00 | NUR ---
I have reviewed this patient and I concur with the Shift Assessment completed by the Licensed Practical Nurse today this shift.
[2021-01-12 05:38] VITALS: BP 130/50
[2021-01-12 06:27] LABS: BASOPHILS 0 % (0-2); EOSINOPHILS 0.6 % (0-7); HEMATOCRIT 30.7 % (36.0-48.0); HEMOGLOBIN 10.2 g/dL (12-16); IMMATURE GRANULOCYTES 0.3 % (0-5); LYMPHOCYTE ABS# 0.86 10x3/uL (1.18-3.74); LYMPHOCYTES 12.1 % (15-50); MCH 29.1 pg (26.0-34.0); MCHC 33.2 g/dL (31.0-37.0); MCV 87.5 fL (80.0-100.0); MEAN PLATELET VOLUME 11.5 fL (7.4-10.4); MONOCYTES 9.1 % (2-11); NEUTROPHIL ABS# 5.56 10x3/uL (1.56-6.13); NEUTROPHILS 77.9 % (40-80); RBC 3.51 10x6/uL (4.00-5.40); RDW 16.9 % (11.5-14.5); WBC 7.1 10x3/uL (4.8-10.8)
[2021-01-12 06:37] LABS: ALBUMIN 2.7 g/dL (3.4-5.0); ANION GAP 11.6 mmol/L (8-16); BILIRUBIN - TOTAL 0.78 mg/dL (0.2-1.3); CALCIUM 9.6 mg/dL (8.5-10.1); CARBON DIOXIDE 24.9 mmol/L (21.0-32.0); CREATININE - SERUM 1.3 mg/dL (0.6-1.3); POTASSIUM - SERUM 3.5 mmol/L (3.5-5.1); PROTEIN - SERUM 5.7 g/dL (6.4-8.2)
[2021-01-12 06:38] LABS: PLATELET COUNT 40 10x3/uL (130-400)
[2021-01-12 08:00] VITALS: BP 110/41
--- NOTE | 2021-01-12 10:09 | MORECARE ---
CASE MANAGEMENT DISCHARGE SUMMARY PATIENT: KESHA ROSE UNIT: [id number] ADM DATE: 12/08/20 AGE: 80 : 42 SEX: F ROOM/BED: D.3993 AUTHOR: NANCY,DOC PHYSICIAN: REFERRING PHYSICIAN: DARLIN PRINCE MD DATE OF SERVICE: 01/12/21 Case Management Discharge Planning Summary COMMENTS ENTERED DATE: 01/12/21 9:56 CT COMMENT TYPE: Discharge Planning REVIEWER: Yulia Chand CM received notification from [facility] that [facility] had declined admission "does not meet their criteria." I called the patient's and informed him and asked him to get us a couple of back up plans for rehab. He states he will come in today and ask for me and tell me his back up rehab facilities. CM will continue to follow and assist with discharge planning/needs. ENTERED DATE: 01/08/21 14:39 CT COMMENT TYPE: Discharge Planning REVIEWER: Louise Lim Faxed referral to [facility] Inpatient Rehab facility per family request Appended by Louise Lim on 01/08/2021 14:41 CDT: ENTERED DATE: 01/07/21 1:24 CT COMMENT TYPE: Discharge Planning REVIEWER: Nadine Magana CM received information from patient's spouse that he would like to see about getting her to [facility] Rehab. [phone]. CM will get InTouch with them about a potential referral. CM will continue to follow and assist as needed with discharge planning needs. DCP REVIEW SUMMARY ANTICIPATED D/C DATE: EXPECTED LOS : CASE STATUS: DCP Initiated INITIAL REVIEW: 01/05/2021 INITIAL REVIEWER: Nadine Magana FINAL DISCHARGE DISPOSITION: : FINAL REVIEWER: FINAL REVIEW DATE: DCP Focus Questions & Answers - Added on: QUESTION: ANSWER : PATIENT: KESHA ROSE ENCOUNTER: [id number] MEDICAL RECORD#: [id number] ADMISSION DATE: 12/08/2020 DISCHARGE DATE: ATTENDING MD: DARLIN LANE : AGE: 80 MARITAL STATUS: M DC PLAN ID: [id number] FACILITY: [facility] PRINTED ON: 01/12/21 10:09 CT All edits/amendments must be made on the electronic document DICTATION DATE: 01/12/211008 HIGH VOLTAGE ELECTRICIAN: DM 01/12/21 100 RPT#: [id number] DC DATE: STATUS: ADM IN [facility] [address] [place] [address] END OF REPORT
[2021-01-12 11:00] VITALS: BP 122/68
[2021-01-12 15:00] VITALS: BP 113/69
--- NOTE | 2021-01-12 16:04 | NUR ---
OT NOTE: PT EXHIBITED SELF LIMITING BEHAVIOR. PT REQUIRED EXTENSIVE CUES FOR SAFETY AND PARTICIPATION. PT COMPLETED SITTING BALANCE TASKS WITH SBA. PT COMPLETED BUE AROM WITH FUNCTIONAL TASKS. PT COMPLETED FACE HYGIENE WITH SETUP. [phone] THANK YOU,LALA VILLALOBOS
--- NOTE | 2021-01-12 16:28 | NUR ---
OT NOTE: RECEIVED INFO THIS AM THAT PT WAS MORE CONFUSED AND AGITATED. PT SEEN IN PM.. SHE WAS LONG SITTING IN BED EATING HER LUNCH (ONLY CONSUMED APPROX 35%)..PT CONT WITH WORD FINDING AND CONFUSION, BUT IS ABLE TO MAKE HER NEEDS KNOW. PT ABLE TO FOLLOW COMMANDS BUT REUQIRES CUES TO STAY ON TASK AND OFTEN TIMES REQUIRES DIRECTIONS WORDED IN A DIFFERENT WAY. PT ABLE TO PERFORM EOB SITTING WITHOUT ASSIST; SIT TO STAND WITH WALKER AND MOD ASSIST, HOWEVER, ONCE SHE WAS UP, SHE WAS ABLE TO STAND APPROX 3-4 MIN.. PT WAS ABLE TO SLIDE FEET AT EOB , HOWEVER, UNABLE TO TAKE A STEP TODAY. (PT HAVING INCREASED DIFFICULTY WITH TAKING STEPS TODAY)..PT ABLE TO TRANSFER BACK TO BED WITH MIN ASSIST FOR LE MGMT. ABLE TO WASH FACE AND HANDS WITH WASH CLOTH; ABLE TO BRUSH HAIR WITH MIN ASSIST. VANNESA JALLOH, OTR/L [phone]
[2021-01-12 20:00] VITALS: BP 117/46
--- NOTE | 2021-01-12 21:35 | NUR ---
PT LAYING SUPINE IN BED. PT MOVED UP IN BED AND TURNED SELF TO RIGHT SIDE. PT IS ALERT AND ORIENTED TO SELF ONLY. PT FOLLOWING COMMANDS. PT ON ROOM AIR, CENTRAL LINE IN PLACE, CLEAN AND DRY DRESSING. MEDICATIONS GIVEN ORDERED. PT DENIES PAIN, SOB AT THIS TIME. BS WAS 347, DOUBLE CHECKED 346 AND WAS TREATED WITH 10 UNITS SLIDING SCALE ORDERED. ALL PERSONAL ITEMS AND CALL LIGHT WITHIN REACH. BED LOWERED AND CAMERA ON.
--- NOTE | 2021-01-12 22:20 | NUR ---
PT ASSISTED TO CHAIR WITH X STAFF.
--- NOTE | 2021-01-13 00:19 | NUR ---
PT ASSISTED BACK TO BED FROM CHAIR X 2 STAFF. PT ABLE TO HOLD HER OWN WEIGHT WHILE STANDING AND SHUFFLE FEET TO BED. PT AGITATED. NO ADDITIONAL NEEDS AT THIS TIME
--- NOTE | 2021-01-13 02:46 | NUR ---
DRESSING CHANGE ON LEFT CENTRAL LINE DONE USING STERILE TECHNIQUE
[2021-01-13 04:00] VITALS: BP 156/57
--- NOTE | 2021-01-13 05:46 | NUR ---
PT BS 64. ASYMPTOMATIC AT THIS TIME. PT GIVEN ORANGE JUICE, BS RECHECK AFTER ORANGE JUICE WAS 111.
[2021-01-13 05:58] LABS: BASOPHILS 0 % (0-2); EOSINOPHILS 0.5 % (0-7); HEMATOCRIT 31.9 % (36.0-48.0); HEMOGLOBIN 10.7 g/dL (12-16); IMMATURE GRANULOCYTES 0.4 % (0-5); LYMPHOCYTES 11.7 % (15-50); MCH 29.4 pg (26.0-34.0); MCHC 33.5 g/dL (31.0-37.0); MCV 87.6 fL (80.0-100.0); MEAN PLATELET VOLUME 10.5 fL (7.4-10.4); MONOCYTES 9.6 % (2-11); NEUTROPHIL ABS# 6.67 10x3/uL (1.56-6.13); NEUTROPHILS 77.8 % (40-80); RBC 3.64 10x6/uL (4.00-5.40); RDW 16.7 % (11.5-14.5); WBC 8.6 10x3/uL (4.8-10.8)
[2021-01-13 06:18] LABS: ANION GAP 13.1 mmol/L (8-16); BILIRUBIN - TOTAL 0.89 mg/dL (0.2-1.3); CALCIUM 10.1 mg/dL (8.5-10.1); CARBON DIOXIDE 24.8 mmol/L (21.0-32.0); CREATININE - SERUM 1.3 mg/dL (0.6-1.3); PROTEIN - SERUM 5.9 g/dL (6.4-8.2)
[2021-01-13 06:20] LABS: PLATELET COUNT 56 10x3/uL (130-400)
[2021-01-13 06:23] LABS: POTASSIUM - SERUM 2.9 mmol/L (3.5-5.1)
[2021-01-13 07:56] VITALS: BP 132/42
[2021-01-13 11:19] VITALS: BP 156/65
[2021-01-13 12:31] LABS: PLATELET ESTIMATE DECREASED
[2021-01-13 12:33] LABS: ROULEAUX OCC
--- NOTE | 2021-01-13 13:09 | MORECARE ---
CASE MANAGEMENT DISCHARGE SUMMARY PATIENT: KESHA ROSE UNIT: [id number] ADM DATE: 12/08/20 AGE: 80 : 42 SEX: F ROOM/BED: D.2133 AUTHOR: NANCY,DOC PHYSICIAN: REFERRING PHYSICIAN: DARLIN PRINCE MD DATE OF SERVICE: 01/13/21 Case Management Discharge Planning Summary COMMENTS ENTERED DATE: 01/13/21 12:55 CT COMMENT TYPE: Discharge Planning REVIEWER: Yulia Chand CM spoke with patient's . He signed NIKKI for [facility] in [place] or [facility]. I have called [facility] and left a voice mail with admission. I then received a call from patient's daughter and she would like a referral to [facility]. I will call them as well. [facility] - [phone] [facility] Re[facility] - [phone] FAX [phone] ENTERED DATE: 01/12/21 9:56 CT COMMENT TYPE: Discharge Planning REVIEWER: Yluia Chand CM received notification from Julia that [facility] had declined admission "does not meet their criteria." I called the patient's and informed him and asked him to get us a couple of back up plans for rehab. He states he will come in today and ask for me and tell me his back up rehab facilities. CM will continue to follow and assist with discharge planning/needs. ENTERED DATE: 01/08/21 14:39 CT COMMENT TYPE: Discharge Planning REVIEWER: Louise Lim Faxed referral to [facility] Inpatient Rehab facility per family request Appended by Louise Lim on 01/08/2021 14:41 CDT: ENTERED DATE: 01/07/21 1:24 CT COMMENT TYPE: Discharge Planning REVIEWER: Nadine Magana CM received information from patient's spouse that he would like to see about getting her [facility] [phone]. CM will get InTouch with them about a potential referral. CM will continue to follow and assist as needed with discharge planning needs. DCP REVIEW SUMMARY ANTICIPATED D/C DATE: EXPECTED LOS : CASE STATUS: DCP Initiated INITIAL REVIEW: 01/05/2021 INITIAL REVIEWER: Nadine Magana FINAL DISCHARGE DISPOSITION: : FINAL REVIEWER: FINAL REVIEW DATE: DCP Focus Questions & Answers - Added on: QUESTION: ANSWER : PATIENT: KESHA ROSE ENCOUNTER: [id number] MEDICAL RECORD#: [id number] ADMISSION DATE: 12/08/2020 DISCHARGE DATE: ATTENDING MD: DARLIN LANE : AGE: 80 MARITAL STATUS: M DC PLAN ID: [id number] FACILITY: [facility] PRINTED ON: 01/13/21 13:09 CT All edits/amendments must be made on the electronic document DICTATION DATE: 01/13/21 130 BUN ICER: ANDREW 01/13/21 130 RPT#: [id number] DC DATE: STATUS: ADM IN [facility] [address] [place] [address] END OF REPORT
--- NOTE | 2021-01-13 13:20 | MORECARE ---
CASE MANAGEMENT DISCHARGE SUMMARY PATIENT: KESHA ROSE UNIT: [id number] ADM DATE: 12/08/20 AGE: 80 : 42 SEX: F ROOM/BED: D.2133 AUTHOR: NANCY,DOC PHYSICIAN: REFERRING PHYSICIAN: DARLIN PRINCE MD DATE OF SERVICE: 01/13/21 Case Management Discharge Planning Summary COMMENTS ENTERED DATE: 01/13/21 13:17 CT COMMENT TYPE: Discharge Planning REVIEWER: Yulia Chand CM has not had a return call from Theresa. I did speak with Álvaro at [facility] and clinical has been faxed to them. CM will continue to follow and assist with discharge planning/needs. ENTERED DATE: 01/13/21 12:55 CT COMMENT TYPE: Discharge Planning REVIEWER: Yulia Chand CM spoke with patient's . He signed NIKKI for [facility] in [place] or [facility]. I have called [facility] and left a voice mail with admission. I then received a call from patient's daughter and she would like a referral to [facility]. I will call them as well. Theresa - [phone] [facility] Rehab - [phone] FAX [phone] ENTERED DATE: 01/12/21 9:56 CT COMMENT TYPE: Discharge Planning REVIEWER: Yulia Chand CM received notification from uJlia that [facility] had declined admission "does not meet their criteria." I called the patient's and informed him and asked him to get us a couple of back up plans for rehab. He states he will come in today and ask for me and tell me his back up rehab facilities. CM will continue to follow and assist with discharge planning/needs. ENTERED DATE: 01/08/21 14:39 CT COMMENT TYPE: Discharge Planning REVIEWER: Louise Lim Faxed referral to [facility] Inpatient Rehab facility per family request Appended by Louise Lim on 01/08/2021 14:41 CDT: ENTERED DATE: 01/07/21 1:24 CT COMMENT TYPE: Discharge Planning REVIEWER: Nadine Magana CM received information from patient's spouse that he would like to see about getting her to [facility] [phone]. CM will get InTouch with them about a potential referral. CM will continue to follow and assist as needed with discharge planning needs. DCP REVIEW SUMMARY ANTICIPATED D/C DATE: EXPECTED LOS : CASE STATUS: DCP Initiated INITIAL REVIEW: 01/05/2021 INITIAL REVIEWER: Nadine Magana FINAL DISCHARGE DISPOSITION: : FINAL REVIEWER: FINAL REVIEW DATE: DCP Focus Questions & Answers - Added on: QUESTION: ANSWER : PATIENT: KESHA ROSE ENCOUNTER: [id number] MEDICAL RECORD#: [id number] ADMISSION DATE: 12/08/2020 DISCHARGE DATE: ATTENDING MD: DARLIN LANE : AGE: 80 MARITAL STATUS: M DC PLAN ID: [id number] FACILITY: [facility] PRINTED ON: 01/13/21 13:19 CT All edits/amendments must be made on the electronic document DICTATION DATE: 01/13/211318 VOCATIONAL ADVISER: ANDREW 01/13/211318 RPT#: [id number] DC DATE: STATUS: ADM IN [facility] [address] [place] [address] END OF REPORT
[2021-01-13 15:44] VITALS: BP 138/52
[2021-01-13 18:08] LABS: ADAMTS13 ACTIVITY 91.8 % (>66.8)
--- NOTE | 2021-01-13 18:17 | NUR ---
OT NOTE: PT REQUIRED EXTENSIVE CDGNITIVE CUES. PT IS EASILY DISTRACTED AND REQUIRED EXTENSIVE CUES FOR ATTENTION TO TASKS. PT EXHIBITED IMPAIRED ATTENTION WITH FUNCTIONAL TASKS. (AM) PT COMPLETED SITTING BALANCE ACTIVITIES WITH SBA-CGA. PT COMPLETED SIT TO STAND WITH MIN A. PT COMPLETED BUE AROM AX WITH FUNCTIONAL REACHING TASKS. (PM) PT COMPLETED SIMPLE FACE AND HAND HYGIENE WITH SETUP-MIN A. PT REQUIRED EXTENDED TIME TO COMPLETE SIMPLE TASK. PT COMPLETED ORAL CARE WITH MIN A USING A TOOTHETTE. [phone] THANK YOU,LALA VILLALOBOS
[2021-01-13 20:00] VITALS: BP 117/63
--- NOTE | 2021-01-13 21:56 | NUR ---
PT LAYING IN BED AND ASSISTED TO SIDE OF BED TO EAT DINNER. PT BS 241 AND COVERED BY SLIDING SCALE ORDERED. PT IS CONFUSED, ONLY ALERT TO PERSON. NO DISTRESS NOTED. PT DOES NOT HAVE ANY REQUESTS OR CONCERNS AT THIS TIME. VITALS WNL
[2021-01-14 04:00] VITALS: BP 126/47
[2021-01-14 07:08] LABS: ANION GAP 11.6 mmol/L (8-16); BILIRUBIN - TOTAL 0.77 mg/dL (0.2-1.3); CARBON DIOXIDE 25.4 mmol/L (21.0-32.0); CREATININE - SERUM 1.4 mg/dL (0.6-1.3); PROTEIN - SERUM 7.2 g/dL (6.4-8.2)
[2021-01-14 07:10] LABS: CALCIUM 9.9 mg/dL (8.5-10.1)
[2021-01-14 07:52] LABS: BASOPHILS 0 % (0-2); EOSINOPHILS 0.4 % (0-7); HEMATOCRIT 29.7 % (36.0-48.0); HEMOGLOBIN 9.8 g/dL (12-16); IMMATURE GRANULOCYTES 0.3 % (0-5); LYMPHOCYTE ABS# 0.75 10x3/uL (1.18-3.74); LYMPHOCYTES 10.7 % (15-50); MCH 29.3 pg (26.0-34.0); MCV 88.9 fL (80.0-100.0); MEAN PLATELET VOLUME 11.3 fL (7.4-10.4); MONOCYTES 9.7 % (2-11); NEUTROPHILS 78.9 % (40-80); RBC 3.34 10x6/uL (4.00-5.40)
[2021-01-14 07:54] LABS: PLATELET COUNT 41 10x3/uL (130-400)
[2021-01-14 09:57] VITALS: BP 133/66
--- NOTE | 2021-01-14 10:25 | NUR ---
OT NOTE: PT REQUIRED EXTENSIVE CUES FOR ATTENTION TO TASKS. PT COMPLETED BED MOB WITH MIN A. PT COMPLETED SIT TO STAND WITH CGA. PT COMPLETED ADL MOB [facility] CGA. [phone] THANK YOU,LALA VILLALOBOS
[2021-01-14 12:42] VITALS: BP 129/48
--- NOTE | 2021-01-14 13:16 | NUR ---
Nutrition Follow-up: Ate ~50% of breakfast this AM. Noted Procal d/c'd on 01/13 2/ improvement in PO intake. Awaiting placement. Diet: Diabetic No PO intake recorded No new wt; last wt: 168# (12/26) Labs noted: BUN 58, Cre 1.4, GFR 38, Glu 86, Alb 3.0 Meds noted: Lasix, Prednisone, Protonix, Humalog, electrolyte protocol -Encourage PO intake and honor food preferences within diet restrictions. -Offer Glucerna with meals. -Need new wt. -RD follow-up: 01/18
[2021-01-14 17:28] VITALS: BP 113/38
[2021-01-14 20:31] VITALS: BP 128/52
--- NOTE | 2021-01-14 21:45 | NUR ---
pt noted to be standing at sink in room, incontinent of bowel. Assisted to clean up, bed linens changed new gown applied, pt returned to bed. denies needs at thsi time, will cotninue to monitor
[2021-01-15 04:50] VITALS: BP 170/53
[2021-01-15 05:56] LABS: BASOPHILS 0 % (0-2); EOSINOPHILS 0.5 % (0-7); HEMATOCRIT 27.5 % (36.0-48.0); HEMOGLOBIN 9.1 g/dL (12-16); IMMATURE GRANULOCYTES 0.5 % (0-5); LYMPHOCYTE ABS# 0.68 10x3/uL (1.18-3.74); LYMPHOCYTES 11.1 % (15-50); MCH 29.1 pg (26.0-34.0); MCHC 33.1 g/dL (31.0-37.0); MCV 87.9 fL (80.0-100.0); MEAN PLATELET VOLUME 10.8 fL (7.4-10.4); MONOCYTES 9.3 % (2-11); NEUTROPHIL ABS# 4.83 10x3/uL (1.56-6.13); NEUTROPHILS 78.6 % (40-80); RBC 3.13 10x6/uL (4.00-5.40); RDW 16.4 % (11.5-14.5); WBC 6.1 10x3/uL (4.8-10.8)
[2021-01-15 06:20] LABS: PLATELET COUNT 51 10x3/uL (130-400)
[2021-01-15 06:21] LABS: ALBUMIN 2.8 g/dL (3.4-5.0); ANION GAP 11.9 mmol/L (8-16); BILIRUBIN - TOTAL 0.71 mg/dL (0.2-1.3); CALCIUM 9.6 mg/dL (8.5-10.1); CARBON DIOXIDE 24.2 mmol/L (21.0-32.0); CREATININE - SERUM 1.4 mg/dL (0.6-1.3); PROTEIN - SERUM 7.2 g/dL (6.4-8.2)
[2021-01-15 06:22] LABS: POTASSIUM - SERUM 3.1 mmol/L (3.5-5.1)
--- NOTE | 2021-01-15 07:29 | MORECARE ---
CASE MANAGEMENT DISCHARGE SUMMARY PATIENT: KESHA ROSE UNIT: [id number] ADM DATE: 12/08/20 AGE: 80 : 42 SEX: F ROOM/BED: D.2133 AUTHOR: NANCY,DOC PHYSICIAN: REFERRING PHYSICIAN: DARLIN PRINCE MD DATE OF SERVICE: 01/15/21 Case Management Discharge Planning Summary COMMENTS ENTERED DATE: 01/13/21 13:17 CT COMMENT TYPE: Discharge Planning REVIEWER: Yulia Chand CM has not had a return call from Theresa. I did speak with Álvaro at [facility] and clinical has been faxed to them. CM will continue to follow and assist with discharge planning/needs. ENTERED DATE: 01/13/21 12:55 CT COMMENT TYPE: Discharge Planning REVIEWER: Yulia Chand CM spoke with patient's . He signed NIKKI for [facility] in [place] or [facility]. I have called [facility] and left a voice mail with admission. I then received a call from patient's daughter and she would like a referral to [facility]. I will call them as well. Theresa - [phone] [facility] Rehab - [phone] FAX [phone] ENTERED DATE: 01/12/21 9:56 CT COMMENT TYPE: Discharge Planning REVIEWER: Yulia Chand CM received notification from Julia that [facility] had declined admission "does not meet their criteria." I called the patient's and informed him and asked him to get us a couple of back up plans for rehab. He states he will come in today and ask for me and tell me his back up rehab facilities. CM will continue to follow and assist with discharge planning/needs. ENTERED DATE: 01/08/21 14:39 CT COMMENT TYPE: Discharge Planning REVIEWER: Louise Lim Faxed referral to [facility] Inpatient Rehab facility per family request Appended by Louise Lim on 01/08/2021 14:41 CDT: ENTERED DATE: 01/07/21 1:24 CT COMMENT TYPE: Discharge Planning REVIEWER: Nadine Magana CM received information from patient's spouse that he would like to see about getting her [facility] [phone]. CM will get InTouch with them about a potential referral. CM will continue to follow and assist as needed with discharge planning needs. DCP REVIEW SUMMARY ANTICIPATED D/C DATE: EXPECTED LOS : CASE STATUS: DCP Initiated INITIAL REVIEW: 01/05/2021 INITIAL REVIEWER: Nadine Magana FINAL DISCHARGE DISPOSITION: : FINAL REVIEWER: FINAL REVIEW DATE: DCP Focus Questions & Answers - Added on: QUESTION: ANSWER : PATIENT: KESHA ROSE ENCOUNTER: [id number] MEDICAL RECORD#: [id number] ADMISSION DATE: 12/08/2020 DISCHARGE DATE: ATTENDING MD: DARLIN LANE : AGE: 80 MARITAL STATUS: M DC PLAN ID: [id number] FACILITY: [facility] PRINTED ON: 01/15/21 7:28 CT All edits/amendments must be made on the electronic document DICTATION DATE: 01/15/21727 CURTAIN ROLLER ASSEMBLER: ANDREW 01/15/21727 RPT#: [id number] DC DATE: STATUS: ADM IN [facility] [address] [place] [address] END OF REPORT
[2021-01-15 08:39] VITALS: BP 110/68
[2021-01-15 10:25] LABS: PLATELET ESTIMATE DECREASED
[2021-01-15 10:26] LABS: ROULEAUX OCC
--- NOTE | 2021-01-15 10:54 | EEG ---
PATIENT:KESHA ROSE MEDICAL RECORD: [id number] DATE OF : 44 LOCATION:D.213 D.M2 ADMISSION DATE: 12/08/20 REFERRING PHYSICIAN: INTERPRETING PHYSICIAN: GUSTAVO BOND MD DATE OF SERVICE: 12/22/2020 DATE OF EE12/22/2020 ORDERED BY: Dr. Bond. ROOM NUMBER: 2305 CASE HISTORY: A 80-year-old female with prolonged poor responsiveness after renal biopsy, hemorrhage, pneumonia and metabolic disturbance. The patient had more marked somnolence 4 days prior to study. MRI demonstrates severe cerebral atrophy and left hemispheric embolic strokes. No sedating medications listed. PROCEDURE: EEG done as a routine bedside portable recording using the standard 10-20 international electrode system. A 16 channel was used with 17th as EKG. Photic stimulation done as activation procedure. DESCRIPTION OF PROCEDURE: EEG opens with the patient awake with record displaying diffuse background slowing in the theta and delta range, left more prominent than the right with more prominent delta slowing in the left hemisphere especially. Best background organization is about 7 Hz with more prominent background theta slowing prominently. No epileptiform changes such as spike, polyspike or spike and wave was seen. Photic stimulation did not yield a photoparoxysmal response. IMPRESSION: Moderately abnormal EEG with diffuse background slowing consistent with encephalopathy. Background changes with more prominent slowing in the left hemisphere compared to the right could suggest a left focal structural or functional abnormality. No evidence of seizure. TRANSINT:[id number] Voice Confirmation ID: [id number] DOCUMENT ID: [id number] GUSTAVO BOND MD at 1054 CC: [id number] DICTATION DATE: 12/23/20 1217 MILITARY PAY CLERK: 12/23/20 1308 ADM IN [place] [address] [place] [address]
[2021-01-15 11:24] VITALS: BP 115/58
--- NOTE | 2021-01-15 13:00 | NUR ---
OT NOTE: CAME INTO PTS ROOM WHILE REEVES WAS ASSISTING PT WITH DRESSING. REEVES HAD BEEN WORKING WITH PT FOR A WHILE AND WAS TRYING TO ENCOURAGE HER TO SIT UP ON EOB( APPARENTLY PT HAD GOTTEN HERSELF INTO AND OUT OF CHAIR EARLIER THIS AM IWTHOUT ASSIST)..PT DOING WELL BUT REQUIRED FREQ CUES AND ENCOURAGEMENT SHE IS EXTREMELEY DISTRACTED AND HAS MODERATE DEFECITS WITH MOTOR PLANNING AND TASK ORGANIZATION. PT ABLE TO FEED SELF WITH SET UP.. EXHIBITS ESSENTIAL TREMORS DURING FEEDING.. RECOMMENDED WEIGHTED UTENSILS AND REPORTS THAT SHE HAS WEIGHTED EQUIP AT HOME. PT TOLERATED SITTING UP ON EOB FOR EXT TIME.. REEVES RETURNED TO ROOM AFTER APPROX 20 MIN TO ASSIST PT BACK TO BED. VNANESA JALLOH, OTR/L [phone]
--- NOTE | 2021-01-15 16:40 | NUR ---
OT NOTE: PT COMPLETED ORAL HYGIENE WITH SETUP USING TOOTHETTE. PT COMPLETED HAIR GROOMING WITH SETUP-MIN A. PT COMPLETED FACE HYGIENE WITH SETUP. PT REQUIRED EXTENDED TIME AND MOD CUES. PT SITTING UP AT EOB WITH . PT REQUESTED ASSISTANCE WITH BACK TO BED. PT COMPLETED SIT TO STAND WITH MIN A. PT COMPLETED SIDE STEP WITH CGA-MIN A. PT COMPLETED BED MOB WITH MAX A FOR POSITIONING. PT DID WELL. PT IS MOTIVATED TO RETURN TO [facility]. PT WOULD BENEFIT FROM [facility] AFTER D/C. [phone] THANK YOU,LALA VILLALOBOS
--- NOTE | 2021-01-15 19:22 | NUR ---
PT LYING IN BED. RESP EVEN AND UNLABORED. ALERT AND ORIENTED TO PERSON. CONFUSED ABOUT PLACE, TIME, SITUATION. PT DENIES NEEDS AT THIS TIME. CLIR. BED IN LOWEST POSITION. SIDE RAILS X2. BED ALARM IN PLACE AND FUNCTIONING PROPERLY
--- NOTE | 2021-01-15 19:45 | NUR ---
PT LYING IN BED APPEARS ASLEEP BREATHING EVENLY NO DISTRESS NOTED, CAMERA IN USE FOR SAFETY, WILL CONTINUE TO MONTIOR
[2021-01-15 20:29] VITALS: BP 103/44
[2021-01-15 21:10] VITALS: BP 132/56
[2021-01-16 00:46] VITALS: BP 130/46
[2021-01-16 05:53] VITALS: BP 134/60
[2021-01-16 08:20] VITALS: BP 135/75
[2021-01-16 11:30] LABS: BASOPHILS 0 % (0-2); EOSINOPHILS 0.8 % (0-7); HEMATOCRIT 27.7 % (36.0-48.0); IMMATURE GRANULOCYTES 0.5 % (0-5); LYMPHOCYTE ABS# 0.98 10x3/uL (1.18-3.74); LYMPHOCYTES 15.4 % (15-50); MCH 29.1 pg (26.0-34.0); MCHC 32.5 g/dL (31.0-37.0); MCV 89.6 fL (80.0-100.0); MEAN PLATELET VOLUME 10.4 fL (7.4-10.4); MONOCYTES 8.6 % (2-11); NEUTROPHIL ABS# 4.76 10x3/uL (1.56-6.13); NEUTROPHILS 74.7 % (40-80); RBC 3.09 10x6/uL (4.00-5.40); RDW 17.2 % (11.5-14.5); WBC 6.4 10x3/uL (4.8-10.8)
[2021-01-16 11:36] LABS: ALBUMIN 2.5 g/dL (3.4-5.0); BILIRUBIN - TOTAL 0.44 mg/dL (0.2-1.3); CALCIUM 9.3 mg/dL (8.5-10.1); CARBON DIOXIDE 25.6 mmol/L (21.0-32.0); CREATININE - SERUM 1.5 mg/dL (0.6-1.3); PROTEIN - SERUM 7.7 g/dL (6.4-8.2)
[2021-01-16 11:39] LABS: ANION GAP 10.7 mmol/L (8-16); POTASSIUM - SERUM 3.3 mmol/L (3.5-5.1)
--- NOTE | 2021-01-16 11:41 | NUR ---
IN BED. AT BEDSIDE. DENIES NEEDS AT THIS TIME. BED LOW POSITION, CALL LIGHT IN REACH. WILL CONTINUE TO MONITOR.
[2021-01-16 12:10] LABS: PLATELET COUNT 37 10x3/uL (130-400); PLATELET ESTIMATE DECREASED
[2021-01-16 12:32] VITALS: BP 122/59
[2021-01-16 15:50] VITALS: BP 139/58
--- NOTE | 2021-01-16 19:05 | NUR ---
PT AWAKE, ALERT, CONFUSED SITTING UP IN BED, DENIES ANY NEEDS WILL CONTINUE TO MONITOR
[2021-01-16 20:30] VITALS: BP 148/64
[2021-01-17 00:30] VITALS: BP 119/52
[2021-01-17 04:30] VITALS: BP 144/55
--- NOTE | 2021-01-17 07:00 | NUR ---
RECIEVED REPORT. ASSUMED CARE OF PATIENT. CALL LIGHT WITHIN REACH. PATIENT CONFUSED, ORIENTED TO NAME ONLY. PATIENT STATES SHE IS LEAVING TODAY. TRMEORS TO BILATERAL UPPER EXTREMITIES NOTED. RAMAN CATH PATENT. DENIES PAIN. WHITE BOARD UPDATED. MONITORING WITH CAMERA. NO DISTRESS.
[2021-01-17 07:27] LABS: BASOPHILS 0 % (0-2); EOSINOPHILS 0.4 % (0-7); HEMATOCRIT 27.9 % (36.0-48.0); HEMOGLOBIN 8.9 g/dL (12-16); IMMATURE GRANULOCYTES 0.4 % (0-5); LYMPHOCYTE ABS# 0.53 10x3/uL (1.18-3.74); LYMPHOCYTES 10.6 % (15-50); MCH 28.7 pg (26.0-34.0); MCHC 31.9 g/dL (31.0-37.0); MEAN PLATELET VOLUME 10.2 fL (7.4-10.4); MONOCYTES 8.6 % (2-11); NEUTROPHIL ABS# 3.99 10x3/uL (1.56-6.13); RDW 17.1 % (11.5-14.5)
[2021-01-17 07:32] LABS: ALBUMIN 2.5 g/dL (3.4-5.0); ANION GAP 10.8 mmol/L (8-16); BILIRUBIN - TOTAL 0.57 mg/dL (0.2-1.3); CALCIUM 9.5 mg/dL (8.5-10.1); CARBON DIOXIDE 25.5 mmol/L (21.0-32.0); CREATININE - SERUM 1.4 mg/dL (0.6-1.3); MAGNESIUM - SERUM 1.7 mg/dL (1.8-2.4); POTASSIUM - SERUM 3.3 mmol/L (3.5-5.1); PROTEIN - SERUM 7.9 g/dL (6.4-8.2)
[2021-01-17 07:33] LABS: PLATELET COUNT 31 10x3/uL (130-400)
[2021-01-17 08:26] VITALS: BP 154/70
--- NOTE | 2021-01-17 10:15 | NUR ---
Assisted patient back to bed. Patients at bedside. call light within reach. no distress. Verbal orders received to discontinue pacheco catheter.
--- NOTE | 2021-01-17 10:45 | NUR ---
Pt oob with PT ambulating in hallway with walker. no distress. tolerated therapy well.
--- NOTE | 2021-01-17 11:37 | NUR ---
fsbs 167. 2 units humalog administered per sliding scale. no distress.
--- NOTE | 2021-01-17 12:30 | NUR ---
RAMAN CATHETER REMOVED DIRECTED. INSTRUCTED PATIENT AND HER SPOUSE THE NEED FOR PATIENT TO VOID BY 1730.
--- NOTE | 2021-01-17 12:57 | MORECARE ---
CASE MANAGEMENT DISCHARGE SUMMARY PATIENT: KESHA ROSE UNIT: [id number] ADM DATE: 12/08/20 AGE: 80 : 42 SEX: F ROOM/BED: D.3943 AUTHOR: NANCY,DOC PHYSICIAN: REFERRING PHYSICIAN: DARLIN PRINCE MD DATE OF SERVICE: 01/17/21 Case Management Discharge Planning Summary CT Patient Name: KESHA ROSE Attending MD : DARLIN ENGLE Medical Record: [id number] Encounter : [id number] Facility : [address] [place] [address] Medical Admission Date : 12/08/2020 9:24 Center Discharge Date : [address] [place] [address] Date of : DC Plan ID : [id number] Age/Sex/Martia : 80/ F/M Printed on : 01/17/21 12:55 CT DCP Review Details Anticipated D/C: Expected LOS : Case Status : INITIATED - Initial Reviewe: [id number] - Nadine Magana Initial Review: 01/05/2021 Planned Disposi: - Final Discharge: - Final Reviewer : : Final Review : Comments CT Entered Date Type Reviewer 01/17/21 12:54 CT Discharge Planning Yulia Chand Comment UPDATED NOTES FAXED TO [facility] IN [place]. CM WILL CONTINUE TO FOLLOW AND ASSIST WITH DISCHARGE PLANNING/NEEDS. 01/13/21 13:17 CT Discharge Planning Yulia Chand Comment CM has not had a return call from [facility]. I did speak with Álvaro at [facility] and clinical has been faxed to them. CM will continue to follow and assist with discharge planning/needs. 01/13/21 12:55 CT Discharge Planning Yulia Chand Comment CM spoke with patient's . He signed NIKKI for [facility] in [place] or [facility]. I have called [facility] and left a voice mail with admission. I then received a call from patient's daughter and she would like a referral to [facility]. I will call them as well. [facility] - [phone] [facility] Rehab - [phone] FAX [phone] 01/12/21 9:56 CT Discharge Planning Yulia Chand Comment CM received notification from Julia that [facility] had declined admission "does not meet their criteria." I called the patient's and informed him and asked him to get us a couple of back up plans for rehab. He states he will come in today and ask for me and tell me his back up rehab facilities. CM will continue to follow and assist with discharge planning/needs. 01/08/21 14:39 CT Discharge Planning Louise Lim Comment Faxed referral to [facility] Inpatient Rehab facility per family request Appended by Louise Lim on 01/08/2021 14:41 CDT: 01/07/21 1:24 CT Discharge Planning Nadine Escobarr Comment CM received information from patient's spouse that he would like to see about getting her to [facility] Neuro Rehab. [phone]. CM will get InTouch with them about a potential referral. CM will continue to follow and assist as needed with discharge planning needs. DCP Focus Questions & Answers [facility] KESHA ROSE MR#: [id number] /Age/Sex/Gllolk[birth year]-Yru[birth year] /80/F /M Attending Physician Name: SERA [id number] Patient Account:[id number] [facility] Page -1 of 1 All edits/amendments must be made on the electronic document DICTATION DATE: 01/17/21 125 PROCESSING CLERK: ANDREW 01/17/21 125 RPT#: [id number] DC DATE: STATUS: ADM IN [facility] [address] [place] [address] END OF REPORT
[2021-01-17 13:21] VITALS: BP 134/70
--- NOTE | 2021-01-17 14:29 | NUR ---
PATIENT INCONTINENT OF URINE, LINENS CHANGED.
--- NOTE | 2021-01-17 14:58 | NUR ---
PATIENT SPOUSE AT BEDSIDE, PATIENT OOB TO CHAIR AT BEDSIDE. BSC PROVIDED TO PATIENT. NO DISTRESS. CALL LIGHT WITHIN REACH.
[2021-01-17 16:16] VITALS: BP 136/67
--- NOTE | 2021-01-17 16:32 | NUR ---
fsbs 295. 6 units humalog administered per sliding scale. no distress.
[2021-01-17 20:00] VITALS: BP 140/61
--- NOTE | 2021-01-17 22:41 | NUR ---
INITIAL ROUNDS COMPLETED AT 1915 HRS. PT SITTING UP IN BED. NO DISTRESS NOTED. ASESSMENT COMPELTED AT 1945 HRS. VSS. PT ALERT, ORIENTED TO PERSON AND KNOWS SHE IS IN THE HOSPITAL. LTLSC SL. LUNGS DIMINISHED IN BASES BILAT. ABD SOFT WTIH ACTINVE BS NOTED. BUTTOCKS EXCORIATED. RED AREA NOTED TO L NECK. PM FSBS 225. 4 UNITS HUMALOG GIVEN SUB-Q TO UPPER R ARM. PM MEDS GIVEN. PT CURRENTLY RESTING WITH EYES CLOSED. RESP EVEN AND REGULAR. SR UP X3, CALL LIGHT WITHIN REACH AND VISUAL CAMERA ON.
--- NOTE | 2021-01-18 00:04 | NUR ---
PT RESTING WITH EYES CLOSED. RESP EVEN AND REGULAR. SR UP X2,CALL LIGHT WITHIN REACH.
--- NOTE | 2021-01-18 00:21 | NUR ---
PT INCONTINENTOF URINE. INCONTINENT CARE DONE. SR UP X2, CALL LIGHT WITHIN REACH AND BED ALARM ON.
--- NOTE | 2021-01-18 02:59 | NUR ---
PT SITTING UP IN BED. DENIES ANY NEEDS OR DISCOMFORT. SR UP X2, CALL LIGHT WITHIN REACH.
[2021-01-18 04:00] VITALS: BP 147/56
--- NOTE | 2021-01-18 04:20 | NUR ---
PT SITTING ON SIDE OF BED. DENIES ANY NEEDS OR DISCOMFORT. CALL LIGHT WITHIN REACH.
--- NOTE | 2021-01-18 06:30 | NUR ---
VSS THROUGHOUT NIGHT. PT DENIED ANY DISCOMFORT. CONTINUES TO BE ORIENTED TO PERSON ONLY. NEEDS MET; WILL CONTINUE TO MONITOR.
--- NOTE | 2021-01-18 07:10 | NUR ---
RECIEVED REPORT. ASSUMED CARE OF PATIENT. CALL LIGHT WITHIN REACH. PATIENT SITTING TO SIDE OF BED. BEDSIDE SHIFT REPORT COMPLETE. WHITE BOARD UPDATED. PATIENT ORIENTED TO NAME AND KNOWS SHE IS IN THE HOSPTIAL AND REQUESTING TO GO HOME. DENIES NEEDS, NO DISTRESS.
[2021-01-18 07:23] LABS: BASOPHILS 0 % (0-2); EOSINOPHILS 1.1 % (0-7); HEMATOCRIT 29.4 % (36.0-48.0); HEMOGLOBIN 9.8 g/dL (12-16); IMMATURE GRANULOCYTES 0.4 % (0-5); LYMPHOCYTE ABS# 0.82 10x3/uL (1.18-3.74); LYMPHOCYTES 17.7 % (15-50); MCH 30.7 pg (26.0-34.0); MCHC 33.3 g/dL (31.0-37.0); MONOCYTES 7.8 % (2-11); NEUTROPHIL ABS# 3.38 10x3/uL (1.56-6.13); RBC 3.19 10x6/uL (4.00-5.40); RDW 17.5 % (11.5-14.5); WBC 4.6 10x3/uL (4.8-10.8)
[2021-01-18 07:25] LABS: MCV 92.2 fL (80.0-100.0); PLATELET COUNT 149 10x3/uL (130-400)
[2021-01-18 08:14] VITALS: BP 145/65
[2021-01-18 09:01] LABS: BILIRUBIN - TOTAL 0.97 mg/dL (0.2-1.3); CARBON DIOXIDE 20.4 mmol/L (21.0-32.0); CREATININE - SERUM 1.3 mg/dL (0.6-1.3); MAGNESIUM - SERUM 1.6 mg/dL (1.8-2.4); PROTEIN - SERUM 8.5 g/dL (6.4-8.2)
[2021-01-18 09:02] LABS: ANION GAP 15.5 mmol/L (8-16); POTASSIUM - SERUM 3.9 mmol/L (3.5-5.1)
--- NOTE | 2021-01-18 09:08 | NUR ---
PATIENT VERY UNCOOPERATIVE WITH STAFF. PATIENT DRESSED AND OUTSIDE OF HER ROOM WITH HER BAG STATING SHE IS LEAVING. PATIENT IS CONFUSED. ATTEMPTED TO REORIENTATE. CALLED AND SPOKE TO PATIENTS SPOUSE AND INFORMED HIM OF PATIENT BEHAVIORS, HE WILL BE HERE IN 30 MINUTES. DRY CELL BATTERY ASSEMBLER ASSISTING WITH CARE OF PATIENT. PATIENT AGREED TO SIT IN RECLINER CHAIR OUTSIDE OF HER ROOM. DRY CELL BATTERY ASSEMBLER AND NENITA ORNELAS WITH PATIENT AT THIS TIME.
--- NOTE | 2021-01-18 09:30 | MORECARE ---
CASE MANAGEMENT DISCHARGE SUMMARY PATIENT: KESHA ROSE UNIT: [id number] ADM DATE: 12/08/20 AGE: 80 : 42 SEX: F ROOM/BED: D.1653 AUTHOR: NANCY,DOC PHYSICIAN: REFERRING PHYSICIAN: DARLIN PRINCE MD DATE OF SERVICE: 01/18/21 Case Management Discharge Planning Summary CT Patient Name: KESHA ROSE Attending MD : DARLIN ENGLE Medical Record: [id number] Encounter : [id number] Facility : [address] [place] [address] Medical Admission Date : 12/08/2020 9:24 Center Discharge Date : [address] [place] [address] Date of : DC Plan ID : [id number] Age/Sex/Martia : 80/ F/M Printed on : 01/18/21 9:29 CT DCP Review Details Anticipated D/C: Expected LOS : Case Status : INITIATED - Initial Reviewe: [id number] - Nadine Magana Initial Review: 01/05/2021 Planned Disposi: - Final Discharge: - Final Reviewer : : Final Review : Comments CT Entered Date Type Reviewer 01/18/21 9:21 CT Discharge Planning Yulia Chand Comment DERRICK CALLED SHANICE AT [facility] TO F/U ON REFERRAL SENT LAST WEEK. I LEFT A MESSAGE ON HIS VOICE MAIL WITH MY CALL BACK NUMBER. 01/17/21 12:54 CT Discharge Planning Yulia Chand Comment UPDATED NOTES FAXED TO [facility] IN [place]. CM WILL CONTINUE TO FOLLOW AND ASSIST WITH DISCHARGE PLANNING/NEEDS. 01/13/21 13:17 CT Discharge Planning Yulia Chand Comment CM has not had a return call from [facility]. I did speak with Shanice at [facility] and clinical has been faxed to them. CM will continue to follow and assist with discharge planning/needs. 01/13/21 12:55 CT Discharge Planning Yulia Chand Comment CM spoke with patient's . He signed NIKKI for [facility] in [place] or [facility]. I have called [facility] and left a voice mail with admission. I then received a call from patient's daughter and she would like a referral to [facility]. I will call them as well. [facility] - [phone] [facility] - [phone] FAX [phone] 01/12/21 9:56 CT Discharge Planning Yulia Chand Comment CM received notification from Julia that [facility] had declined admission "does not meet their criteria." I called the patient's and informed him and asked him to get us a couple of back up plans for rehab. He states he will come in today and ask for me and tell me his back up rehab facilities. CM will continue to follow and assist with discharge planning/needs. 01/08/21 14:39 CT Discharge Planning Louise Lim Comment Faxed referral to [facility] Inpatient Rehab facility per family request Appended by Louise Lim on 01/08/2021 14:41 CDT: 01/07/21 1:24 CT Discharge Planning Nadine Magana Comment CM received information from patient's spouse that he would like to see about getting her to [facility] Neuro Rehab. [phone]. CM will get InTouch with them about a potential referral. CM will continue to follow and assist as needed with discharge planning needs. DCP Focus Questions & Answers [facility] KESHA ROSE MR#: [id number] /Age/Sex/Amxbks24-Mue-03 /80/F /M Attending Physician Name: MAYEISHAN [id number] Patient Account:[id number] [facility] Page -1 of 1 All edits/amendments must be made on the electronic document DICTATION DATE: 01/18/21928 [employer] SHEETS SUPERVISOR: ANDREW 01/18/21928 RPT#: [id number] DC DATE: STATUS: ADM IN [facility] [address] [place] [address] END OF REPORT
--- NOTE | 2021-01-18 10:08 | MORECARE ---
CASE MANAGEMENT DISCHARGE SUMMARY PATIENT: KESHA ROSE UNIT: [id number] ADM DATE: 12/08/20 AGE: 80 : 42 SEX: F ROOM/BED: D.5581 AUTHOR: NANCY,DOC PHYSICIAN: REFERRING PHYSICIAN: DARLIN PRINCE MD DATE OF SERVICE: 01/18/21 Case Management Discharge Planning Summary CT Patient Name: KESHA ROSE Attending MD : DARLIN ENGLE Medical Record: [id number] Encounter : [id number] Facility : [address] [place] [address] Medical Admission Date : 12/08/2020 9:24 Center Discharge Date : [address] [place] [address] Date of : DC Plan ID : [id number] Age/Sex/Martia : 80/ F/M Printed on : 01/18/21 10:07 CT DCP Review Details Anticipated D/C: Expected LOS : Case Status : INITIATED - Initial Reviewe: [id number] - Nadine Magana Initial Review: 01/05/2021 Planned Disposi: - Final Discharge: - Final Reviewer : : Final Review : Comments CT Entered Date Type Reviewer 01/18/21 10:03 CT Discharge Planning Yulia Chand Comment CM spoke with about not getting ahold of anyone at [facility]. I asked if we could try to send a referral to rehab in [place] so she can get started and he states he will need to discuss this with his daughter first. 01/18/21 9:21 CT Discharge Planning Yulia Chand Comment CM CALLED SHANICE AT [facility] TO F/U ON REFERRAL SENT LAST WEEK. I LEFT A MESSAGE ON HIS VOICE MAIL WITH MY CALL BACK NUMBER. 01/17/21 12:54 CT Discharge Planning Yulia Chand Comment UPDATED NOTES FAXED TO ON LICENSE OF [facility] [place]. CM WILL CONTINUE TO FOLLOW AND ASSIST WITH DISCHARGE PLANNING/NEEDS. 01/13/21 13:17 CT Discharge Planning Yulia Chand Comment CM has not had a return call from [facility]. I did speak with Shanice at [facility] and clinical has been faxed to them. CM will continue to follow and assist with discharge planning/needs. 01/13/21 12:55 CT Discharge Planning Yulia Chand Comment CM spoke with patient's . He signed NIKKI for [facility] in [place] or [facility]. I have called [facility] and left a voice mail with admission. I then received a call from patient's daughter and she would like a referral to [facility]. I will call them as well. [facility] - [phone] [facility] Re[facility] - [phone] FAX [phone] 01/12/21 9:56 CT Discharge Planning Yulia Chand Comment CM received notification from Julia that [facility] had declined admission "does not meet their criteria." I called the patient's and informed him and asked him to get us a couple of back up plans for rehab. He states he will come in today and ask for me and tell me his back up rehab facilities. CM will continue to follow and assist with discharge planning/needs. 01/08/21 14:39 CT Discharge Planning Louise Lim Comment Faxed referral to [facility] Inpatient Rehab facility per family request Appended by Louise Lim on 01/08/2021 14:41 CDT: 01/07/21 1:24 CT Discharge Planning Nadine Izzy Comment CM received information from patient's spouse that he would like to see about getting her to [facility] Neuro Rehab. [phone]. CM will get InTouch with them about a potential referral. CM will continue to follow and assist as needed with discharge planning needs. DCP Focus Questions & Answers [facility] KESHA ROSE MR#: [id number] /Age/Sex/Dbjbnm45-Nnv-27 /80/F /M Attending Physician Name: SERA [id number] Patient Account:[id number] [facility] Page -1 of 1 All edits/amendments must be made on the electronic document DICTATION DATE: 01/18/21 1007 INVESTIGATOR VICE: ANDREW 01/18/21 1007 RPT#: [id number] DC DATE: STATUS: ADM IN [facility] [address] [place] [address] END OF REPORT
--- NOTE | 2021-01-18 11:14 | NUR ---
FSBS 117. NO INSULIN PER SLIDING SCALE. PATIENT OOB TO CHAIR AT BEDSIDE WITH FEET ELEVATED. PATIENT CALM AND COOPERATIVE AFTER RECEIVING GEODON INJECTION. MORNING ADLS COMPLETE.
--- NOTE | 2021-01-18 11:50 | MORECARE ---
CASE MANAGEMENT DISCHARGE SUMMARY PATIENT: KESHA ROSE UNIT: [id number] ADM DATE: 12/08/20 AGE: 80 : 42 SEX: F ROOM/BED: D.8833 AUTHOR: NANCY,DOC PHYSICIAN: REFERRING PHYSICIAN: DARLIN PRINCE MD DATE OF SERVICE: 01/18/21 Case Management Discharge Planning Summary CT Patient Name: KESHA ROSE Attending MD : DARLIN ENGLE Medical Record: [id number] Encounter : [id number] Facility : [address] [place] [address] Medical Admission Date : 12/08/2020 9:24 Center Discharge Date : [address] [place] [address] Date of : DC Plan ID : [id number] Age/Sex/Martia : 80/ F/M Printed on : 01/18/21 11:48 CT DCP Review Details Anticipated D/C: Expected LOS : Case Status : INITIATED - Initial Reviewe: [id number] - Nadine Magana Initial Review: 01/05/2021 Planned Disposi: - Final Discharge: - Final Reviewer : : Final Review : Comments CT Entered Date Type Reviewer 01/18/21 11:27 CT Discharge Planning Yulia Chand Comment DERRICK CALLED [facility] AGAIN AT [phone] TO SEE IF THEY COULD CLINICALLY ACCEPT PATIENT. HE STATE THEY ARE FULL AND DO NOT KNOW WHEN A BED WILL BE AVAILABLE. STATES CAN CONTINUE TO LOOK AT [facility] BUT CANNOT CLINICALLY ACCEPT AT THIS TIME. I MET WITH IN THE ROOM AND INFORMED HIM THAT [facility] IS NOT ACCEPTING AT THIS TIME. HE STATES HE WILL TALK WITH ME THIS AFTERNOON ABOUT THIS. 01/18/21 10:03 CT Discharge Planning Yulia Chand Comment DERRICK spoke with about not getting ahold of anyone at [facility]. I asked if we could try to send a referral to rehab in [place] so she can get started and he states he will need to discuss this with his daughter first. 01/18/21 9:21 CT Discharge Planning Yulia Chand Comment DERRICK CALLED SHANICE AT [facility] TO F/U ON REFERRAL SENT LAST WEEK. I LEFT A MESSAGE ON HIS VOICE MAIL WITH MY CALL BACK NUMBER. 01/17/21 12:54 CT Discharge Planning Yulia Chand Comment UPDATED NOTES FAXED TO [facility] [place]. CM WILL CONTINUE TO FOLLOW AND ASSIST WITH DISCHARGE PLANNING/NEEDS. 01/13/21 13:17 CT Discharge Planning Yulia Chand Comment CM has not had a return call from [facility]. I did speak with Shanice at [facility] and clinical has been faxed to them. CM will continue to follow and assist with discharge planning/needs. 01/13/21 12:55 CT Discharge Planning Yulia Chand Comment CM spoke with patient's . He signed NIKKI for [facility] in [place] or [facility]. I have called [facility] and left a voice mail with admission. I then received a call from patient's daughter and she would like a referral to [facility]. I will call them as well. [facility] - [phone] [facility] - [phone] FAX [phone] 01/12/21 9:56 CT Discharge Planning Yulia Chand Comment CM received notification from Julia that [facility] had declined admission "does not meet their criteria." I called the patient's and informed him and asked him to get us a couple of back up plans for rehab. He states he will come in today and ask for me and tell me his back up rehab facilities. CM will continue to follow and assist with discharge planning/needs. 01/08/21 14:39 CT Discharge Planning Louise Lim Comment Faxed referral to [facility] Inpatient Rehab facility per family request Appended by Louise Lim on 01/08/2021 14:41 CDT: 01/07/21 1:24 CT Discharge Planning Nadine Magana Comment CM received information from patient's spouse that he would like to see about getting her to [facility] Neuro Rehab. [phone]. CM will get InTouch with them about a potential referral. CM will continue to follow and assist as needed with discharge planning needs. PRP Focus Questions & Answers [facility] KESHA ROSE MR#: [id number] /Age/Sex/Vdsqrp00-Ult-44 /80/F /M Attending Physician Name: SERA [id number] Patient Account:[id number] [facility] Page -1 of 1 All edits/amendments must be made on the electronic document DICTATION DATE: 01/18/211147 QUALITY CONTROL LAB TECHNICIAN: ANDREW 01/18/21 114 RPT#: [id number] DC DATE: STATUS: ADM IN [facility] [address] [place] [address] END OF REPORT
--- NOTE | 2021-01-18 12:36 | MORECARE ---
CASE MANAGEMENT DISCHARGE SUMMARY PATIENT: KESHA ROSE UNIT: [id number] ADM DATE: 12/08/20 AGE: 80 : 42 SEX: F ROOM/BED: D.2583 AUTHOR: NANCY,DOC PHYSICIAN: REFERRING PHYSICIAN: DARLIN PRINCE MD DATE OF SERVICE: 01/18/21 Case Management Discharge Planning Summary CT Patient Name: KESHA ROSE Attending MD : DARLIN ENGLE Medical Record: [id number] Encounter : [id number] Facility : [address] [place] [address] Medical Admission Date : 12/08/2020 9:24 Center Discharge Date : [address] [place] [address] Date of : DC Plan ID : [id number] Age/Sex/Martia : 80/ F/M Printed on : 01/18/21 12:34 CT DCP Review Details Anticipated D/C: Expected LOS : Case Status : INITIATED - Initial Reviewe: [id number] - Nadine Magana Initial Review: 01/05/2021 Planned Disposi: - Final Discharge: - Final Reviewer : : Final Review : Comments CT Entered Date Type Reviewer 01/18/21 12:24 CT Discharge Planning Yulia Chand Comment Rosy with inpatient rehab spoke with patient and about inpatient rehab, signed NIKKI for [facility] inpatient rehab. 01/18/21 11:27 CT Discharge Planning Yulia Chand Comment DERRICK CALLED [facility] AGAIN AT [phone] TO SEE IF THEY COULD CLINICALLY ACCEPT PATIENT. HE STATE THEY ARE FULL AND DO NOT KNOW WHEN A BED WILL BE AVAILABLE. STATES CAN CONTINUE TO LOOK AT [facility] BUT CANNOT CLINICALLY ACCEPT AT THIS TIME. I MET WITH IN THE ROOM AND INFORMED HIM THAT [facility] IS NOT ACCEPTING AT THIS TIME. HE STATES HE WILL TALK WITH ME THIS AFTERNOON ABOUT THIS. 01/18/21 10:03 CT Discharge Planning Yulia Chand Comment DERRICK spoke with about not getting ahold of anyone at [facility]. I asked if we could try to send a referral to rehab in [place] so she can get started and he states he will need to discuss this with his daughter first. 01/18/21 9:21 CT Discharge Planning Yulia Chand Comment CM CALLED SHANICE AT [facility] TO F/U ON REFERRAL SENT LAST WEEK. I LEFT A MESSAGE ON HIS VOICE MAIL WITH MY CALL BACK NUMBER. 01/17/21 12:54 CT Discharge Planning Yulia Chand Comment UPDATED NOTES FAXED TO [facility] IN [place]. CM WILL CONTINUE TO FOLLOW AND ASSIST WITH DISCHARGE PLANNING/NEEDS. 01/13/21 13:17 CT Discharge Planning Yulia Jagruti Comment CM has not had a return call from [facility]. I did speak with Shanice at [facility] and clinical has been faxed to them. CM will continue to follow and assist with discharge planning/needs. 01/13/21 12:55 CT Discharge Planning Yulia Orrtammy Comment CM spoke with patient's . He signed NIKKI for [facility] in [place] or [facility]. I have called [facility] and left a voice mail with admission. I then received a call from patient's daughter and she would like a referral to [facility]. I will call them as well. [facility] - [phone] [facility] - [phone] FAX [phone] 01/12/21 9:56 CT Discharge Planning Yulia Orrtammy Comment CM received notification from Julia that [facility] had declined admission "does not meet their criteria." I called the patient's and informed him and asked him to get us a couple of back up plans for rehab. He states he will come in today and ask for me and tell me his back up rehab facilities. CM will continue to follow and assist with discharge planning/needs. 01/08/21 14:39 CT Discharge Planning Louise Lim Comment Faxed referral to [facility] Inpatient Rehab facility per family request Appended by Louise Lim on 01/08/2021 14:41 CDT: 01/07/21 1:24 CT Discharge Planning Nadine Magana Comment CM received information from patient's spouse that he would like to see about getting her to [facility] Neuro Rehab. [phone]. CM will get InTouch with them about a potential referral. CM will continue to follow and assist as needed with discharge planning needs. DCP Focus Questions & Answers [facility] KESHA ROSE MR#: [id number] /Age/Sex/Hdouxg14-Mdd-41 /80/F /M Attending Physician Name: SERA [id number] Patient Account:[id number] [facility] Page -1 of 1 All edits/amendments must be made on the electronic document DICTATION DATE: 01/18/21 123 CLINICAL PROJECT ASSISTANT: ANDREW 01/18/21 1234 RPT#: [id number] DC DATE: STATUS: ADM IN [facility] [address] [place] [address] END OF REPORT
[2021-01-18 12:58] VITALS: BP 165/69
--- NOTE | 2021-01-18 13:28 | NUR ---
ATTEMPTED TO CALL PATEINTS DAUGHTER BACK AT [phone], RECIEVED AUTOMATED VOICEMAIL WITH INDICATED PHONE NUMBER. NO MESSAGE LEFT. PRIOR TO CALLING PATIENTS DAUGHTER BACK, VERBAL CONSENT OBTAINED FROM PATIENT AND HER DUE TO PATIENT IS CONFUSED WITH BEHAVIORS. PATIENTS BEHAVIORS ARE AGAIN ESCALATING AT THIS TIME. PATIENT IN CHAIR AT BEDSIDE. NO DISTRESS NOTED.
--- NOTE | 2021-01-18 13:30 | NUR ---
Nutrition Reassessment/Follow-up: Pt in shower this AM. Per record, ate 0% of breakfast this AM. Awaiting placement. Diet: Diabetic, Glucerna TID PO intake: 0-50% No new wt; last wt: 168# (12/26) Labs noted: BUN 46, Cre 1.3, GFR 42, Glu 69, Mg 1.6, Alb 3.0 Meds noted: Lasix, KDur, Prednisone, Protonix, Humalog, electrolyte protocol -Nutrition needs unchanged since last reassessment; no new wt available. -Encourage PO intake and honor food preferences within diet restrictions. -Continue Glucerna with meals. -Pt may benefit from an appetite stimulant. -Need new wt; last wt is from 12/26. -RD will follow up within 3 days.
--- NOTE | 2021-01-18 16:08 | NUR ---
fsbs 247. 4 units humalog administered per sliding scale. patient sitting to bedside in chair, spouse here to visit. call light within reach. no distress.
--- NOTE | 2021-01-18 16:40 | MORECARE ---
CASE MANAGEMENT DISCHARGE SUMMARY PATIENT: KESHA ROSE UNIT: [id number] ADM DATE: 12/08/20 AGE: 80 : 42 SEX: F ROOM/BED: D.7003 AUTHOR: NANCY,DOC PHYSICIAN: REFERRING PHYSICIAN: DARLIN PRINCE MD DATE OF SERVICE: 01/18/21 Case Management Discharge Planning Summary CT Patient Name: KESHA ROSE Attending MD : DARLIN ENGLE Medical Record: [id number] Encounter : [id number] Facility : [address] [place] [address] Medical Admission Date : 12/08/2020 9:24 Center Discharge Date : [address] [place] [address] Date of : DC Plan ID : [id number] Age/Sex/Martia : 80/ F/M Printed on : 01/18/21 16:38 CT DCP Review Details Anticipated D/C: Expected LOS : Case Status : INITIATED - Initial Reviewe: [id number] - Nadine Magana Initial Review: 01/05/2021 Planned Disposi: - Final Discharge: - Final Reviewer : : Final Review : Comments CT Entered Date Type Reviewer 01/18/21 16:06 CT Discharge Planning Yulia Chand Comment DERRICK received a call from patient's daughter, Lenin. Lenin is crying and states "we have got to get my mom down here to [place] to a rehab.' States her dad called her this morning upset because patient was denied by [facility]. States "She just has to be here so I can help." She gave me a new number to call [facility], so I called the transfer number she gave me [phone] and James states that is the wrong number to get rehab and he gave me another number. I called [facility] and spoke with Amy castillo and faxed clinical. I informed Yaritza at [facility] that patient's daughter wanted her in [place]. [facility] in [place] Phone - [phone] or [phone] [facility] Fax number - [phone] 01/18/21 12:24 CT Discharge Planning Yulia Chand Comment Rosy with inpatient rehab spoke with patient and about inpatient rehab, signed NIKKI for [facility] inpatient rehab. 01/18/21 11:27 CT Discharge Planning Yulia Chand Comment CM CALLED [facility] AGAIN AT [phone] TO SEE IF THEY COULD CLINICALLY ACCEPT PATIENT. HE STATE THEY ARE FULL AND DO NOT KNOW WHEN A BED WILL BE AVAILABLE. STATES CAN CONTINUE TO LOOK AT [facility] BUT CANNOT CLINICALLY ACCEPT AT THIS TIME. I MET WITH IN THE ROOM AND INFORMED HIM THAT [facility] IS NOT ACCEPTING AT THIS TIME. HE STATES HE WILL TALK WITH ME THIS AFTERNOON ABOUT THIS. 01/18/21 10:03 CT Discharge Planning Yulia Chand Comment CM spoke with about not getting ahold of anyone at [facility]. I asked if we could try to send a referral to rehab in [place] so she can get started and he states he will need to discuss this with his daughter first. 01/18/21 9:21 CT Discharge Planning Yulia Chand Comment DERRICK CALLED SHANICE AT [facility] TO F/U ON REFERRAL SENT LAST WEEK. I LEFT A MESSAGE ON HIS VOICE MAIL WITH MY CALL BACK NUMBER. 01/17/21 12:54 CT Discharge Planning Yulia Chand Comment UPDATED NOTES FAXED TO [facility] IN [place]. CM WILL CONTINUE TO FOLLOW AND ASSIST WITH DISCHARGE PLANNING/NEEDS. 01/13/21 13:17 CT Discharge Planning Yulia Chand Comment CM has not had a return call from [facility]. I did speak with Shanice at [facility] and clinical has been faxed to them. CM will continue to follow and assist with discharge planning/needs. 01/13/21 12:55 CT Discharge Planning Yulia Chand Comment DERRICK spoke with patient's . He signed NIKKI for [facility] in [place] or [facility]. I have called [facility] and left a voice mail with admission. I then received a call from patient's daughter and she would like a referral to [facility]. I will call them as well. [facility] - [phone] [facility] Re[facility] - [phone] FAX [phone] 01/12/21 9:56 CT Discharge Planning Yulia Chand Comment DERRICK received notification from Julia that [facility] had declined admission "does not meet their criteria." I called the patient's and informed him and asked him to get us a couple of back up plans for rehab. He states he will come in today and ask for me and tell me his back up rehab facilities. CM will continue to follow and assist with discharge planning/needs. 01/08/21 14:39 CT Discharge Planning Louise Lim Comment Faxed referral to [facility] Inpatient Rehab facility per family request Appended by Louise Lim on 01/08/2021 14:41 CDT: 01/07/21 1:24 CT Discharge Planning Nadine Izzy Comment CM received information from patient's spouse that he would like to see about getting her to [facility] Neuro Rehab. [phone]. CM will get InTouch with them about a potential referral. CM will continue to follow and assist as needed with discharge planning needs. DCP Focus Questions & Answers [facility] KESHA ROSE MR#: [id number] /Age/Sex/Sxmbnf08-Wlm-83 /80/F /M Attending Physician Name: SERA [id number] Patient Account:[id number] [facility] Page -1 of 1 All edits/amendments must be made on the electronic document DICTATION DATE: 01/18/211637 VP DATA: ANDREW 01/18/211637 RPT#: [id number] DC DATE: STATUS: ADM IN [facility] [address] [place] [address] END OF REPORT
--- NOTE | 2021-01-18 16:50 | NUR ---
OT NOTE: PT COMPLETED CHAIR TO [facility]SC TRANSFER WITH MIN A. PT COMPLETED TOILETING WITH SPV. PT COMPLETED TOILET HYGIENE WITH MOD A. PT COMPLETED HAND HYGIENE WITH SETUP. PT REQUIRED CUES FOR ATTENTION TO TASKS. [phone] THANK YOU,LALA VILLALOBOS
--- NOTE | 2021-01-18 18:58 | NUR ---
bedside shift report complete, pt lying in bed awake, pleasantly confused at this time. smiling denies needs. will ontinue to monitor
[2021-01-18 20:00] VITALS: BP 119/47
[2021-01-19 04:00] VITALS: BP 122/71
[2021-01-19 05:38] LABS: BASOPHILS 0 % (0-2); EOSINOPHILS 1.3 % (0-7); HEMATOCRIT 30.6 % (36.0-48.0); HEMOGLOBIN 9.7 g/dL (12-16); LYMPHOCYTE ABS# 0.85 10x3/uL (1.18-3.74); LYMPHOCYTES 13.7 % (15-50); MCH 28.8 pg (26.0-34.0); MCHC 31.7 g/dL (31.0-37.0); MCV 90.8 fL (80.0-100.0); MEAN PLATELET VOLUME 10.9 fL (7.4-10.4); MONOCYTES 7.7 % (2-11); NEUTROPHIL ABS# 4.75 10x3/uL (1.56-6.13); NEUTROPHILS 76.3 % (40-80); RBC 3.37 10x6/uL (4.00-5.40); RDW 17.1 % (11.5-14.5); WBC 6.2 10x3/uL (4.8-10.8)
[2021-01-19 05:57] LABS: PLATELET ESTIMATE DECREASED
[2021-01-19 05:59] LABS: ALBUMIN 2.7 g/dL (3.4-5.0); BILIRUBIN - TOTAL 0.76 mg/dL (0.2-1.3); CALCIUM 9.6 mg/dL (8.5-10.1); CARBON DIOXIDE 22.1 mmol/L (21.0-32.0); MAGNESIUM - SERUM 1.6 mg/dL (1.8-2.4); PROTEIN - SERUM 7.8 g/dL (6.4-8.2)
[2021-01-19 06:01] LABS: ANION GAP 13.9 mmol/L (8-16); CREATININE - SERUM 1.7 mg/dL (0.6-1.3)
[2021-01-19 06:13] LABS: PLATELET COUNT 17 10x3/uL (130-400)
--- NOTE | 2021-01-19 06:13 | NUR ---
PLT 17, CALL PLACED TO DR GRACE [facility] TO PAGE
--- NOTE | 2021-01-19 06:27 | NUR ---
ORDER RECEIVED TO REDRAW CBC/PLT, ORDERS ENTERED
--- NOTE | 2021-01-19 07:30 | NUR ---
assisted pt up to recliner, tolerated well, instructed pt to call for help before getting up, call light in reach, will monitor
[2021-01-19 08:15] VITALS: BP 150/58
[2021-01-19 08:17] LABS: BASOPHILS 0 % (0-2); HEMATOCRIT 33.8 % (36.0-48.0); IMMATURE GRANULOCYTES 1.3 % (0-5); LYMPHOCYTE ABS# 1.24 10x3/uL (1.18-3.74); LYMPHOCYTES 13.4 % (15-50); MCH 29.3 pg (26.0-34.0); MCHC 32.5 g/dL (31.0-37.0); MCV 90.1 fL (80.0-100.0); MEAN PLATELET VOLUME 11.4 fL (7.4-10.4); MONOCYTES 8.3 % (2-11); NEUTROPHIL ABS# 7.05 10x3/uL (1.56-6.13); RBC 3.75 10x6/uL (4.00-5.40); RDW 16.9 % (11.5-14.5); WBC 9.3 10x3/uL (4.8-10.8)
[2021-01-19 08:18] LABS: PLATELET COUNT 25 10x3/uL (130-400)
--- NOTE | 2021-01-19 09:00 | NUR ---
DR GRACE AWARE OF PLT COUNT, NO NEW ORDERS
--- NOTE | 2021-01-19 09:31 | MORECARE ---
CASE MANAGEMENT DISCHARGE SUMMARY PATIENT: KESHA ROSE UNIT: [id number] ADM DATE: 12/08/20 AGE: 80 : 44 SEX: F ROOM/BED: D.7513 AUTHOR: NANCY,DOC PHYSICIAN: REFERRING PHYSICIAN: DARLIN PRINCE MD DATE OF SERVICE: 01/19/21 Case Management Discharge Planning Summary CT Patient Name: KESHA ROSE Attending MD : DARLIN ENGLE Medical Record: [id number] Encounter : [id number] Facility : [address] [place] [address] Medical Admission Date : 12/08/2020 9:24 Center Discharge Date : [address] [place] [address] Date of : DC Plan ID : [id number] Age/Sex/Martia : 80/ F/M Printed on : 01/19/21 9:29 CT DCP Review Details Anticipated D/C: Expected LOS : Case Status : INITIATED - Initial Reviewe: [id number] - Nadine Magana Initial Review: 01/05/2021 Planned Disposi: - Final Discharge: - Final Reviewer : : Final Review : Comments CT Entered Date Type Reviewer 01/19/21 9:16 CT Discharge Planning Nadien Magana Comment CM received message from Truong King a [facility] in [place] requesting updated therapy notes. CM sent therapy notes from 01/17 & 01/18. Truong stated that he plans to send off for auth today. CM will continue to follow and assist as needed with discharge planning / needs. 01/18/21 16:06 CT Discharge Planning Yulia Chand Comment CM received a call from patient's daughter, Lenin. Lenin is crying and states "we have got to get my mom down here to [place] to a rehab.' States her dad called her this morning upset because patient was denied by [place]. States "She just has to be here so I can help." She gave me a new number to call [facility], so I called the transfer number she gave me [phone] and James states that is the wrong number to get rehab and he gave me another number. I called [facility] and spoke with Amy castillo and faxed clinical. I informed Yaritza at [facility] that patient's daughter wanted her in [place]. [facility] in [place] Phone - [phone] or [phone] [facility] Fax number - [phone] 01/18/21 12:24 CT Discharge Planning Yulia Chand Comment Rosy with inpatient rehab spoke with patient and about inpatient rehab, signed NKIKI for [facility] inpatient rehab. 01/18/21 11:27 CT Discharge Planning Yulia Chand Comment DERRICK CALLED SHANICE AGAIN AT [phone] TO SEE IF THEY COULD CLINICALLY ACCEPT PATIENT. HE STATE THEY ARE FULL AND DO NOT KNOW WHEN A BED WILL BE AVAILABLE. STATES CAN CONTINUE TO LOOK AT [facility] BUT CANNOT CLINICALLY ACCEPT AT THIS TIME. I MET WITH IN THE ROOM AND INFORMED HIM THAT [place] NOT ACCEPTING AT THIS TIME. HE STATES HE WILL TALK WITH ME THIS AFTERNOON ABOUT THIS. 01/18/21 10:03 CT Discharge Planning Yulia Chand Comment DERRICK spoke with about not getting ahold of anyone at [facility]. I asked if we could try to send a referral to rehab in [place] so she can get started and he states he will need to discuss this with his daughter first. 01/18/21 9:21 CT Discharge Planning Yulia Chand Comment DERRICK CALLED SHANICE AT [facility] TO F/U ON REFERRAL SENT LAST WEEK. I LEFT A MESSAGE ON HIS VOICE MAIL WITH MY CALL BACK NUMBER. 01/17/21 12:54 CT Discharge Planning Yulia Chand Comment UPDATED NOTES FAXED TO [facility] IN [place]. CM WILL CONTINUE TO FOLLOW AND ASSIST WITH DISCHARGE PLANNING/NEEDS. 01/13/21 13:17 CT Discharge Planning Yulia Chand Comment DERRICK has not had a return call from [facility]. I did speak with Shanice at [facility] and clinical has been faxed to them. CM will continue to follow and assist with discharge planning/needs. 01/13/21 12:55 CT Discharge Planning Yulia Chand Comment DERRICK spoke with patient's . He signed NIKKI for [facility] in [place] or [facility]. I have called [facility] and left a voice mail with admission. I then received a call from patient's daughter and she would like a referral to [facility]. I will call them as well. [facility] - [phone] [facility] - [phone] FAX [phone] 01/12/21 9:56 CT Discharge Planning Yulia Chand Comment CM received notification from Julia that [facility] had declined admission "does not meet their criteria." I called the patient's and informed him and asked him to get us a couple of back up plans for rehab. He states he will come in today and ask for me and tell me his back up rehab facilities. CM will continue to follow and assist with discharge planning/needs. 01/08/21 14:39 CT Discharge Planning Louise Lim Comment Faxed referral to [facility] Inpatient Rehab facility per family request Appended by Louise Lim on 01/08/2021 14:41 CDT: 01/07/21 1:24 CT Discharge Planning Nadine Magana Comment CM received information from patient's spouse that he would like to see about getting her to [facility] Neuro Rehab. [phone]. CM will get InTouch with them about a potential referral. CM will continue to follow and assist as needed with discharge planning needs. DCP Focus Questions & Answers [facility] KESHA ROSE MR#: [id number] /Age/Sex/Xmsavd79-Xqv-52 /80/F /M Attending Physician Name: SREA [id number] Patient Account:[id number] [facility] Page -1 of 1 All edits/amendments must be made on the electronic document DICTATION DATE: 01/19/21928 OCCUPATIONAL THERAPY TECHNICIAN: ANDREW 01/19/21928 RPT#: [id number] DC DATE: STATUS: ADM IN [facility] [address] [place] [address] END OF REPORT
--- NOTE | 2021-01-19 10:30 | NUR ---
therapy in working with pt
--- NOTE | 2021-01-19 12:00 | NUR ---
sitting up in chair with eyes closed, call light in reach, will monitor
--- NOTE | 2021-01-19 14:54 | NUR ---
at bedside, pt sleeping
[2021-01-19 15:55] VITALS: BP 129/63
--- NOTE | 2021-01-19 17:31 | NUR ---
OT NOTE: PT REQUIRED MIN A FOR CHAIR TO BSC TSF. PT REQUIRED MIN A FOR BSC TO BED TSF. PT REQUIRED MOD A FOR TOILET HYGIENE. PT COMPLETED HAIR GROOMING WITH SETUP. PT COMPLETED HAND HYGIENE WITH SETUP. PT REQUIRED MODERATE VERBAL CUES FOR ATTENTION TO TASK. [phone] THANK YOU,LALA VILLALOBOS
--- NOTE | 2021-01-19 18:48 | NUR ---
PT LYING IN BED APPEARS ASLEEP. WILL CONTINUE TO MONITOR
--- NOTE | 2021-01-19 19:48 | NUR ---
POTASSIUM 6.0, RICHMOND GOODEN/ADITI NOTIFIED NEW ORDERS RECEIVED
[2021-01-19 20:00] VITALS: BP 120/48
--- NOTE | 2021-01-20 03:02 | NUR ---
pt restless, agitated several times throughout shift, increased risk of pulling TLSC line and falls. PRN geodon given per orders will continue to monitor
[2021-01-20 04:00] VITALS: BP 132/44
[2021-01-20 06:33] LABS: ALBUMIN 2.2 g/dL (3.4-5.0); ANION GAP 11.1 mmol/L (8-16); BILIRUBIN - TOTAL 0.48 mg/dL (0.2-1.3); CALCIUM 9.2 mg/dL (8.5-10.1); CARBON DIOXIDE 21.6 mmol/L (21.0-32.0); CREATININE - SERUM 1.3 mg/dL (0.6-1.3); MAGNESIUM - SERUM 1.8 mg/dL (1.8-2.4); POTASSIUM - SERUM 3.7 mmol/L (3.5-5.1); PROTEIN - SERUM 6.6 g/dL (6.4-8.2)
[2021-01-20 08:08] VITALS: BP 138/58
[2021-01-20 08:11] LABS: BASOPHILS 0 % (0-2); EOSINOPHILS 0.8 % (0-7); IMMATURE GRANULOCYTES 0.6 % (0-5); LYMPHOCYTES 16.2 % (15-50); MCH 29.1 pg (26.0-34.0); MCHC 31.9 g/dL (31.0-37.0); MEAN PLATELET VOLUME 10.9 fL (7.4-10.4); MONOCYTES 7.7 % (2-11); NEUTROPHIL ABS# 3.69 10x3/uL (1.56-6.13); NEUTROPHILS 74.7 % (40-80); RDW 17.3 % (11.5-14.5)
[2021-01-20 08:34] LABS: HEMATOCRIT 26.3 % (36.0-48.0); HEMOGLOBIN 8.4 g/dL (12-16); RBC 2.89 10x6/uL (4.00-5.40); WBC 4.9 10x3/uL (4.8-10.8)
[2021-01-20 08:35] LABS: PLATELET COUNT 18 10x3/uL (130-400)
--- NOTE | 2021-01-20 11:11 | NUR ---
PATIENT SITTING ON SIDE OF BED AAOX2, RESP EVEN AND NON LABORED, MEDICATIONS ADMINISTERED WITH NO COMPLIACTIONS, BREAKFAST TRAY SET UP AND NO FURTHER NEEDS AT THIS TIME, TAMEKA CHOUDHARY
[2021-01-20 11:51] VITALS: BP 129/73
--- NOTE | 2021-01-20 11:54 | MORECARE ---
CASE MANAGEMENT DISCHARGE SUMMARY PATIENT: KESHA ROSE UNIT: [id number] ADM DATE: 12/08/20 AGE: 80 : 42 SEX: F ROOM/BED: D.2203 AUTHOR: NANCY,DOC PHYSICIAN: REFERRING PHYSICIAN: DARLIN PRINCE MD DATE OF SERVICE: 01/20/21 Case Management Discharge Planning Summary CT Patient Name: KESHA ROSE Attending MD : DARLIN ENGLE Medical Record: [id number] Encounter : [id number] Facility : [address] [place] [address] Medical Admission Date : 12/08/2020 9:24 Center Discharge Date : [address] [place] [address] Date of : DC Plan ID : [id number] Age/Sex/Martia : 80/ F/M Printed on : 01/20/21 11:53 CT DCP Review Details Anticipated D/C: Expected LOS : Case Status : INITIATED - Initial Reviewe: [id number] - Nadine Magana Initial Review: 01/05/2021 Planned Disposi: - Final Discharge: - Final Reviewer : : Final Review : Comments CT Entered Date Type Reviewer 01/20/21 11:27 CT Discharge Planning Yulia Chand Comment Patient's spoke with me about [facility] being out of network. He states he will not be able to pay for the out of network facility. states he wants a referral to [facility] inpatient rehab as previously planned. I informed him that his daughter told me they needed to get to [place] as soon as possible and that he was too upset still being here in [place]. He shakes his head no and states he is in no hurry to get to [place] and does want his to stay here. I put in the inpatient rehab screen again and spoke with Rosy. Rosy states they are in Network, so he would have to pay 270 dollars a day for days 1-8 only, then would be 100% paid. CM will continue to follow and assist with discharge planning/needs. 01/19/21 9:16 CT Discharge Planning Nadine Magana Comment CM received message from Truong King a [facility] in [place] requesting updated therapy notes. CM sent therapy notes from 01/17 & 01/18. Truong stated that he plans to send off for auth today. CM will continue to follow and assist as needed with discharge planning / needs. 01/18/21 16:06 CT Discharge Planning Yulia Chand Comment DERRICK received a call from patient's daughter, Lenin. Lenin is crying and states "we have got to get my mom down here to [place] to a rehab.' States her dad called her this morning upset because patient was denied by [place]. States "She just has to be here so I can help." She gave me a new number to call [facility], so I called the transfer number she gave me [phone] and James states that is the wrong number to get rehab and he gave me another number. I called [facility] and spoke with anna, Amy and faxed clinical. I informed Yaritza at [facility] that patient's daughter wanted her in [place]. [facility] in [place] Phone - [phone] or [phone] [facility] Fax number - [phone] 01/18/21 12:24 CT Discharge Planning Yulia Chand Comment Rosy with inpatient rehab spoke with patient and about inpatient rehab, signed NIKKI for [facility] inpatient rehab. 01/18/21 11:27 CT Discharge Planning Yulia Chand Comment DERRICK CALLED [facility]ANICE AGAIN AT [phone] TO SEE IF THEY COULD CLINICALLY ACCEPT PATIENT. HE STATE THEY ARE FULL AND DO NOT KNOW WHEN A BED WILL BE AVAILABLE. STATES CAN CONTINUE TO LOOK AT [facility] BUT CANNOT CLINICALLY ACCEPT AT THIS TIME. I MET WITH IN THE ROOM AND INFORMED HIM THAT [place] NOT [place]PTING AT THIS TIME. HE STATES HE WILL TALK WITH ME THIS AFTERNOON ABOUT THIS. 01/18/21 10:03 CT Discharge Planning Yulia Chand Comment DERRICK spoke with about not getting ahold of anyone at [facility]. I asked if we could try to send a referral to rehab in so she can get started and he states he will need to discuss this with his daughter first. 01/18/21 9:21 CT Discharge Planning Yulia Chand Comment DERRICK CALLED SHANICE AT [facility] TO F/U ON REFERRAL SENT LAST WEEK. I LEFT A MESSAGE ON HIS VOICE MAIL WITH MY CALL BACK NUMBER. 01/17/21 12:54 CT Discharge Planning Yulia Chand Comment UPDATED NOTES FAXED TO [facility] IN [place]. CM WILL CONTINUE TO FOLLOW AND ASSIST WITH DISCHARGE PLANNING/NEEDS. 01/13/21 13:17 CT Discharge Planning Yulia Chand Comment CM has not had a return call from [facility]. I did speak with Shanice at [facility] and clinical has been faxed to them. CM will continue to follow and assist with discharge planning/needs. 01/13/21 12:55 CT Discharge Planning Yulia Chand Comment CM spoke with patient's . He signed NIKKI for [facility] in [place] or [facility]. I have called [facility] and left a voice mail with admission. I then received a call from patient's daughter and she would like a referral to [facility]. I will call them as well. [facility] - [phone] [facility] - [phone] FAX [phone] 01/12/21 9:56 CT Discharge Planning Yulia Jagruti Comment CM received notification from Julia that [facility] had declined admission "does not meet their criteria." I called the patient's and informed him and asked him to get us a couple of back up plans for rehab. He states he will come in today and ask for me and tell me his back up rehab facilities. CM will continue to follow and assist with discharge planning/needs. 01/08/21 14:39 CT Discharge Planning Louise Lim Comment Faxed referral to [facility] facility per family request Appended by Louise Lim on 01/08/2021 14:41 CDT: 01/07/21 1:24 CT Discharge Planning Nadine Furr Comment CM received information from patient's spouse that he would like to see about getting her to [facility]. [phone]. CM will get InTouch with them about a potential referral. CM will continue to follow and assist as needed with discharge planning needs. DCP Focus Questions & Answers [facility] KESHA ROSE MR#: [id number] /Age/Sex/[id number]-53 /80/F /M Attending Physician Name: SERA [id number] Patient Account:[id number] [facility] Page -1 of 1 All edits/amendments must be made on the electronic document DICTATION DATE: 01/20/211152 RETAIL SHIFT LEADER: ANDREW 01/20/211152 RPT#: [id number] DC DATE: STATUS: ADM IN [facility] [address] [place] [address] END OF REPORT
--- NOTE | 2021-01-20 13:23 | NUR ---
Nutrition Follow-up: reports pt ate some breakfast this AM but unsure of %. Awaiting placement. Diet: Diabetic, Glucerna TID PO intake: 25-50% (01/16); no more recent PO intake recorded No new wt; last wt: 168# (12/26) Labs noted: BUN 53, Cre 1.3, GFR 42, Glu 162, Alb 2.2 Meds noted: Protonix, Humalog, Lasix, KDur, Prednisone, D5 1/2NS @ 75, electrolyte protocol -Encourage PO intake and honor food preferences within diet restrictions. -Pt may benefit from an appetite stimulant. -Need new wt; last wt is from 12/26. -RD follow-up: 01/25
[2021-01-20 16:13] VITALS: BP 140/93
--- NOTE | 2021-01-20 16:58 | NUR ---
OT NOTE: (AM) PT SITTING IN DOOR WAY ON BSC. REEVES WITH NURSING ASSIST HAD PT COMPLETE ADL MOB WITH CGA. PT COMPLETED SIMPLE HAND AND FACE HYGIENE WITH SETU-MIN A. (PM) PT COMPLETED SITTING BALANCE WITH SBA. PT COMPLETED HAND HYGIENE AT SINK LEVEL WITH SBA. PT EXHIBITED CONFUSION AND REQUIRED RE-DIRECTION. NURSING AWARE AND PRESENT. [phone];125-140 THANK YOU,LALA VILLALOBOS
--- NOTE | 2021-01-20 17:26 | NUR ---
REHAB PRESCREEN: CHART REVIEWED. CLINICALS SENT TO [facility] TO START THE PREAUTHORIZATION PROCESS. WE WILL WAIT THEIR DETERMINATION. WE FEEL SHE WOULD BE A GOOD CANDIDATE FOR INPATIENT REHAB. THANK YOU FOR THE REFERRAL. JOSE VASQUEZ RN CLINICAL LIAISON, INPATIENT REHAB
[2021-01-20 18:10] VITALS: BP 153/63
--- NOTE | 2021-01-20 19:10 | NUR ---
PT SITTING IN CHAIR AT BEDSIDE, NO DISTRESS NOTED WILL CONTIUE TO MONITOR
--- NOTE | 2021-01-20 19:40 | NUR ---
ANOTHER NURSE NOTIFIED THIS NURSE PT IS SITTING IN CHAIR IN ROOM, PT IS MOVING CHAIR BY WALKING IT WITH HER FEET, TO BLOCK DOOR AND TELLING STAFF NOT TO COME IN. VIDEO CAMERA FOR SAFETY STILL IN USE
--- NOTE | 2021-01-20 23:35 | NUR ---
PT CONTINUES TO BE SITTING IN CHAIR IN ROOM, CLOTHES OFF SITTING IN HER PANTY AND BRA. HAS HOUSE COAT OFF SITTING ON IT. TELLS NURSE TO LEAVE ROOM REFUSING ASSIST WITH CLOTHES.
[2021-01-21] VITALS: BP 142/55
--- NOTE | 2021-01-21 03:18 | NUR ---
pt has been up in room chair, rolling around room, telling nurse she is leaving putting bag in doorway. no telling nurse that we (hospital staff) are stealing from her
[2021-01-21 04:00] VITALS: BP 141/56
[2021-01-21 06:51] LABS: ANION GAP 11.5 mmol/L (8-16); BILIRUBIN - TOTAL 0.7 mg/dL (0.2-1.3); CALCIUM 9.5 mg/dL (8.5-10.1); CARBON DIOXIDE 24.9 mmol/L (21.0-32.0); CREATININE - SERUM 1.3 mg/dL (0.6-1.3); MAGNESIUM - SERUM 1.8 mg/dL (1.8-2.4); POTASSIUM - SERUM 3.4 mmol/L (3.5-5.1); PROTEIN - SERUM 7.2 g/dL (6.4-8.2)
[2021-01-21 06:52] LABS: ALBUMIN 2.8 g/dL (3.4-5.0)
[2021-01-21 07:00] VITALS: BP 153/59
[2021-01-21 07:00] LABS: BASOPHILS 0 % (0-2); EOSINOPHILS 0.6 % (0-7); HEMATOCRIT 28.5 % (36.0-48.0); HEMOGLOBIN 9.1 g/dL (12-16); IMMATURE GRANULOCYTES 1.2 % (0-5); LYMPHOCYTE ABS# 0.77 10x3/uL (1.18-3.74); MCH 29.4 pg (26.0-34.0); MCHC 31.9 g/dL (31.0-37.0); MCV 92.2 fL (80.0-100.0); MONOCYTES 10.4 % (2-11); NEUTROPHIL ABS# 3.73 10x3/uL (1.56-6.13); NEUTROPHILS 72.8 % (40-80); RBC 3.09 10x6/uL (4.00-5.40); RDW 17.1 % (11.5-14.5); WBC 5.1 10x3/uL (4.8-10.8)
[2021-01-21 07:07] LABS: PLATELET COUNT 19 10x3/uL (130-400)
--- NOTE | 2021-01-21 08:33 | NUR ---
PATIENT AAOX2, RESP EVEN AND NON LABORED, NO S/S OF DISTRESS, MEDICATIONS ADMINISTERED WITH NO COMPLICATIONS, PATIENT IS IN A PLEASANT MANOR TODAY, NO FURTHER NEEDS AT THIS TIME, TAMEKA CHOUDHARY
[2021-01-21 09:36] LABS: PLATELET ESTIMATE DECREASED
[2021-01-21 09:39] LABS: ANISOCYTOSIS OCC; ROULEAUX OCC
--- NOTE | 2021-01-21 10:11 | NUR ---
I have reviewed this patient and I concur with the Shift Assessment completed by the Licensed Practical Nurse today this shift.
[2021-01-21 11:00] VITALS: BP 133/52
[2021-01-21 14:00] VITALS: BP 146/59
--- NOTE | 2021-01-21 15:18 | NUR ---
PATIENT REFUSED PT X3 TODAY. PATIENT CONFUSED AND WOULD GET AGGITATED WHEN TRYING TO GET HER TO PARTICIPATE.
--- NOTE | 2021-01-21 15:37 | NUR ---
OT NOTE: PT COMPLETED BEDMOB TASKS WITH SBA-MIN A. PT COMPLETED SIMPLE GROOMING WITH SETUP-MIN A. PT REQUIRED REDIRECTION FOR ATTENTION TO TASKS. PT IS EASILY DISTRACTED TODAY. PT WOULD NOT ATTEMPT TO SIT AT EOB. PT REQUIRED EXTENDED TIME FOR TASKS. NURSING AWARE. [phone] THANK YOU,LALA VILLALOBOS
--- NOTE | 2021-01-21 16:37 | NUR ---
OT NOTE: PT EDUCATED ON IMPORTANCE OF PARTICIPATION. PT REQUIRED EXTENDED TIME FOR SIMPLE HYGIENE TASKS. PT EXHIBITED BUE AROM WITH FUNCTIONAL TASKS. PT REQUIRED REDIRECTION CUES FOR TASK COMPLETION. [phone] THANK YOU,LALA VILLALOBOS
[2021-01-21 20:00] VITALS: BP 136/49
--- NOTE | 2021-01-21 21:00 | NUR ---
ASSESSMENT COMPLETE. NO S/S OF DISTRESS. AAO AT BASELINE. MEDS PASSED. TUCKED INTO BED. CLIR. BED IN LOWEST POSITION. WILL CONT TO MONITOR.
[2021-01-22] VITALS: BP 152/50
--- NOTE | 2021-01-22 00:55 | NUR ---
SLEEPING SUPINE. RR EVEN AND NONLABORED. CLIR. CAMERA MOITOR IN PLACE. CLIR. WILL CONT TO MONITOR.
[2021-01-22 04:00] VITALS: BP 142/68
[2021-01-22 06:05] LABS: BASOPHILS 0 % (0-2); EOSINOPHILS 0.4 % (0-7); HEMATOCRIT 27.6 % (36.0-48.0); HEMOGLOBIN 8.7 g/dL (12-16); IMMATURE GRANULOCYTES 1.2 % (0-5); LYMPHOCYTE ABS# 0.93 10x3/uL (1.18-3.74); LYMPHOCYTES 18.1 % (15-50); MCH 28.8 pg (26.0-34.0); MCHC 31.5 g/dL (31.0-37.0); MCV 91.4 fL (80.0-100.0); MEAN PLATELET VOLUME 10.2 fL (7.4-10.4); MONOCYTES 11.7 % (2-11); NEUTROPHIL ABS# 3.54 10x3/uL (1.56-6.13); NEUTROPHILS 68.6 % (40-80); RBC 3.02 10x6/uL (4.00-5.40); RDW 16.7 % (11.5-14.5); WBC 5.2 10x3/uL (4.8-10.8)
[2021-01-22 06:07] LABS: PLATELET COUNT 27 10x3/uL (130-400)
[2021-01-22 06:37] LABS: ALBUMIN 2.4 g/dL (3.4-5.0); ANION GAP 11.1 mmol/L (8-16); BILIRUBIN - TOTAL 0.7 mg/dL (0.2-1.3); CALCIUM 9.4 mg/dL (8.5-10.1); CARBON DIOXIDE 24.4 mmol/L (21.0-32.0); CREATININE - SERUM 1.2 mg/dL (0.6-1.3); POTASSIUM - SERUM 3.5 mmol/L (3.5-5.1); PROTEIN - SERUM 6.5 g/dL (6.4-8.2)
[2021-01-22 07:29] VITALS: BP 156/65
--- NOTE | 2021-01-22 08:31 | NUR ---
PATIENT AAOX2, RESP EVEN AND NON LABORED, NO S/S OF DISTRESS, MEDICATIONS ADMINSITERED WITH NO COMPLICATIONS, PATIENT SHOWERED AND TOLERATED WITH NO COMPLICATIONS, NO FURTHER NEEDS AT THIS TIME, KENRICK, ROMAP
[2021-01-22] MEDS ORDERED: BYSTOLIC5 MG PO (10:29)
[2021-01-22] MEDS ORDERED: PROTONIX IV IV (10:30)
[2021-01-22] MEDS ORDERED: ACETAMINOPHEN325 MG PO (10:30)
[2021-01-22] MEDS ORDERED: NICARDIPINE HCL30 MG PO (10:30)
[2021-01-22] MEDS ORDERED: TYLENOL RC (10:30)
[2021-01-22] MEDS ORDERED: DULERA 200 MCG8.8 GM INH (10:30)
[2021-01-22] MEDS ORDERED: K-DUR20 MEQ PO (10:30)
[2021-01-22] MEDS ORDERED: HUMALOG 30100 UNITS/ SC (10:31)
[2021-01-22] MEDS ORDERED: NYSTATIN1 PWD TOPICAL (10:31)
[2021-01-22] MEDS ORDERED: PREDNISONE20 MG PO (10:31)
[2021-01-22] MEDS ORDERED: CALMOSEPTINE OI71 GM TOPICAL (10:31)
--- NOTE | 2021-01-22 13:22 | NUR ---
PATIENT REFUSED PT EARLIER IN THE AM. LATER IN THE AM, PATIENT WAS WALKING OUT IN HALLWAY WHILE PUSHING HER BEDSIDE TABLE. NSG AND PT TECH WENT TO ASSIST PATIENT. PATIENT WALKED 200 FEET WITH WALKER WITH MIN ASST. PATIENT SAT DOWN TO TAKE A SITTING REST BREAK. PATIENT STILL CONFUSED AND IRRITABLE AT TIMES.
--- NOTE | 2021-01-22 14:15 | NUR ---
PT HAS BEEN ACCEPTED TO INPATIENT REHAB. SHE WILL BE COMING TO ROOM 1113A. THIS INFORMATION HAS BEEN RELAYED TO COLIN STORY RN CM AND WORKERS COMPENSATION CLAIMS ADJUSTER CASSIUS CAMPOS.
--- NOTE | 2021-01-22 14:17 | NUR ---
LEFT CVL REMOVED WITH TIP INTACT. PATIENT IS INSTRUCTED TO LAY FLAT X 15 MIN. SLIGHT BLEEDING SEEN BUT NO MORE PAST PRESSURE HELD. PRIMARY NURSE ORTHODOX AT BEDSIDE WHEN THIS IS REMOVED. MEDICATED BUTTON IN PICC LINE DRESSING KIT APPLIED ALONG WITH STERILE DRESSING.
--- NOTE | 2021-01-22 15:34 | NUR ---
OT NOTE: PT COMPLETED ADL MOB WITH CGA-SBA USING RW. PT COMPLETED SITTING BALANCE WITH SPV. PT REQUIRED CUES FOR INCREASED SAFETY. [phone] THANK YOU,LALA VILLALOBOS
--- NOTE | 2021-01-22 20:09 | MORECARE ---
CASE MANAGEMENT DISCHARGE SUMMARY PATIENT: KESHA ROSE UNIT: [id number] ADM DATE: 12/08/20 AGE: 80 : 42 SEX: F ROOM/BED: D.2133 AUTHOR: NANCY,DOC PHYSICIAN: REFERRING PHYSICIAN: DARLIN PRINCE MD DATE OF SERVICE: 01/22/21 Case Management Discharge Planning Summary CT Patient Name: KESHA ROSE Attending MD : DARLIN ENGLE Medical Record: [id number] Encounter : [id number] Facility : [address] [place] [address] Medical Admission Date : 12/08/2020 9:24 Center Discharge Date : 01/22/2021 [facility] [place] [address] Date of : DC Plan ID : [id number] Age/Sex/Martia : 80/ F/M Printed on : 01/22/21 20:07 CT DCP Review Details Anticipated D/C: Expected LOS : Case Status : INITIATED - Initial Reviewe: [id number] - Nadine Magana Initial Review: 01/05/2021 Planned Disposi: - Final Discharge: - Final Reviewer : : Final Review : Comments CT Entered Date Type Reviewer 01/20/21 11:27 CT Discharge Planning Yulia Chand Comment Patient's spoke with me about [facility] being out of network. He states he will not be able to pay for the out of network facility. states he wants a referral to [facility] inpatient rehab as previously planned. I informed him that his daughter told me they needed to get to [place] as soon as possible and that he was too upset still being here in [place]. He shakes his head no and states he is in no hurry to get to [place] and does want his to stay here. I put in the inpatient rehab screen again and spoke with Rosy. Rosy states they are in Network, so he would have to pay 270 dollars a day for days 1-8 only, then would be 100% paid. CM will continue to follow and assist with discharge planning/needs. 01/19/21 9:16 CT Discharge Planning Nadine Magana Comment CM received message from Truong King a [facility] in [place] requesting updated therapy notes. CM sent therapy notes from 01/17 & 01/18. Truong stated that he plans to send off for auth today. CM will continue to follow and assist as needed with discharge planning / needs. 01/18/21 16:06 CT Discharge Planning Yulia Chand Comment DERRICK received a call from patient's daughter, Lenin. Lenin is crying and states "we have got to get my mom down here to [place] to a rehab.' States her dad called her this morning upset because patient was denied by [place] re[facility] unit. States "She just has to be here so I can help." She gave me a new number to call [facility], so I called the transfer number she gave me [phone] and James states that is the wrong number to get rehab and he gave me another number. I called [facility] and spoke with Amy castillo and faxed clinical. I informed Yaritza at [facility] that patient's daughter wanted her in [place]. [facility] in [place] Phone - [phone] or [phone] [facility] Fax number - [phone] 01/18/21 12:24 CT Discharge Planning Yulia Chand Comment Rosy with inpatient rehab spoke with patient and about inpatient rehab, signed NIKKI for [facility] inpatient rehab. 01/18/21 11:27 CT Discharge Planning Yulia Chand Comment DERRICK CALLED [facility] AGAIN AT [phone] TO SEE IF THEY COULD CLINICALLY ACCEPT PATIENT. HE STATE THEY ARE FULL AND DO NOT KNOW WHEN A BED WILL BE AVAILABLE. STATES CAN CONTINUE TO LOOK AT [facility] BUT CANNOT CLINICALLY ACCEPT AT THIS TIME. I MET WITH IN THE ROOM AND INFORMED HIM THAT [facility] IS NOT ACCEPTING AT THIS TIME. HE STATES HE WILL TALK WITH ME THIS AFTERNOON ABOUT THIS. 01/18/21 10:03 CT Discharge Planning Yulia Chand Comment DERRICK spoke with about not getting ahold of anyone at [facility]. I asked if we could try to send a referral to rehab in so she can get started and he states he will need to discuss this with his daughter first. 01/18/21 9:21 CT Discharge Planning Yulia Chand Comment DERRICK CALLED SHANICE AT [facility] TO F/U ON REFERRAL SENT LAST WEEK. I LEFT A MESSAGE ON HIS VOICE MAIL WITH MY CALL BACK NUMBER. 01/17/21 12:54 CT Discharge Planning Yulia Chand Comment UPDATED NOTES FAXED TO [facility] IN [place]. CM WILL CONTINUE TO FOLLOW AND ASSIST WITH DISCHARGE PLANNING/NEEDS. 01/13/21 13:17 CT Discharge Planning Yulia Jaramillotammy Comment CM has not had a return call from [facility]. I did speak with Shanice at [facility] and clinical has been faxed to them. CM will continue to follow and assist with discharge planning/needs. 01/13/21 12:55 CT Discharge Planning Yulia Chand Comment CM spoke with patient's . He signed NIKKI for [facility] in [place] or [facility]. I have called [facility] and left a voice mail with admission. I then received a call from patient's daughter and she would like a referral to [facility]. I will call them as well. [facility] - [phone] [facility] - [phone] FAX [phone] 01/12/21 9:56 CT Discharge Planning Yulia Chand Comment CM received notification from Julia that [facility] had declined admission "does not meet their criteria." I called the patient's and informed him and asked him to get us a couple of back up plans for rehab. He states he will come in today and ask for me and tell me his back up rehab facilities. CM will continue to follow and assist with discharge planning/needs. 01/08/21 14:39 CT Discharge Planning Louise Lim Comment Faxed referral to [facility]patient [facility]hab facility per family request Appended by Louise Lim on 01/08/2021 14:41 CDT: 01/07/21 1:24 CT Discharge Planning Nadine Magana Comment CM received information from patient's spouse that he would like to see about getting her to [facility]. [phone]. CM will get InTouch with them about a potential referral. CM will continue to follow and assist as needed with discharge planning needs. DCP Focus Questions & Answers [facility] KESHA ROSE MR#: [id number] /Age/Sex/Kfzpxl68-Nrg-61 /80/F /M Attending Physician Name: SERA [id number] Patient Account:[id number] [facility] Page -1 of 1 All edits/amendments must be made on the electronic document DICTATION DATE: 01/22/212006 TELEGRAPHIC TYPEWRITER OPERATOR CHIEF: ANDREW 01/22/212006 RPT#: [id number] DC DATE:01/22/21 STATUS: DIS IN [facility] [address] [place] [address] END OF REPORT
--- NOTE | 2021-01-25 07:59 | MORECARE ---
CASE MANAGEMENT DISCHARGE SUMMARY PATIENT: KESHA ROSE UNIT: [id number] ADM DATE: 12/08/20 AGE: 80 : 42 SEX: F ROOM/BED: D.2133 AUTHOR: NANCY,DOC PHYSICIAN: REFERRING PHYSICIAN: DARLIN PRINCE MD DATE OF SERVICE: 01/25/21 Case Management Discharge Planning Summary CT Patient Name: KESHA ROSE Attending MD : DARLIN ENGLE Medical Record: [id number] Encounter : [id number] Facility : [address] [place] [address] Medical Admission Date : 12/08/2020 9:24 Center Discharge Date : 01/22/2021 [facility] [place] [address] Date of : DC Plan ID : [id number] Age/Sex/Martia : 80/ F/M Printed on : 01/25/21 7:58 CT DCP Review Details Anticipated D/C: Expected LOS : Case Status : INITIATED - Initial Reviewe: [id number] - Nadine Magana Initial Review: 01/05/2021 Planned Disposi: - Final Discharge: - Final Reviewer : : Final Review : Comments CT Entered Date Type Reviewer 01/20/21 11:27 CT Discharge Planning Yulia Chand Comment Patient's spoke with me about [facility] being out of network. He states he will not be able to pay for the out of network facility. states he wants a referral to [facility] inpatient rehab as previously planned. I informed him that his daughter told me they needed to get to [place] as soon as possible and that he was too upset still being here in [place]. He shakes his head no and states he is in no hurry to get to [place] and does want his to stay here. I put in the inpatient rehab screen again and spoke with Rosy. Rosy states they are in Network, so he would have to pay 270 dollars a day for days 1-8 only, then would be 100% paid. CM will continue to follow and assist with discharge planning/needs. 01/19/21 9:16 CT Discharge Planning Nadine Magana Comment CM received message from Truong King a [facility] in [place] requesting updated therapy notes. CM sent therapy notes from 01/17 & 01/18. Truong stated that he plans to send off for auth today. CM will continue to follow and assist as needed with discharge planning / needs. 01/18/21 16:06 CT Discharge Planning Yulia Chand Comment DERRICK received a call from patient's daughter, Lenin. Lenin is crying and states "we have got to get my mom down here to [place] to a rehab.' States her dad called her this morning upset because patient was denied by [facility] unit. States "She just has to be here so I can help." She gave me a new number to call [facility], so I called the transfer number she gave me [phone] and James states that is the wrong number to get rehab and he gave me another number. I called [facility] and spoke with Amy castillo and faxed clinical. I informed Yaritza at [facility] that patient's daughter wanted her in [place]. [facility] in [place] Phone - [phone] or [phone] [facility] Fax number - [phone] 01/18/21 12:24 CT Discharge Planning Yulia Chand Comment Rosy with inpatient rehab spoke with patient and about inpatient rehab, signed NIKKI for [facility] inpatient rehab. 01/18/21 11:27 CT Discharge Planning Yulia Chand Comment DERRICK CALLED SHANICE AGAIN AT [phone] TO SEE IF THEY COULD CLINICALLY ACCEPT PATIENT. HE STATE THEY ARE FULL AND DO NOT KNOW WHEN A BED WILL BE AVAILABLE. STATES CAN CONTINUE TO LOOK AT CLIINICAL BUT CANNOT CLINICALLY ACCEPT AT THIS TIME. I MET WITH IN THE ROOM AND INFORMED HIM THAT [facility] IS NOT ACCEPTING AT THIS TIME. HE STATES HE WILL TALK WITH ME THIS AFTERNOON ABOUT THIS. 01/18/21 10:03 CT Discharge Planning Yulia Chand Comment DERRICK spoke with about not getting ahold of anyone at [facility]. I asked if we could try to send a referral to rehab in so she can get started and he states he will need to discuss this with his daughter first. 01/18/21 9:21 CT Discharge Planning Yulia Chand Comment DERRICK CALLED SHANICE AT [facility] TO F/U ON REFERRAL SENT LAST WEEK. I LEFT A MESSAGE ON HIS VOICE MAIL WITH MY CALL BACK NUMBER. 01/17/21 12:54 CT Discharge Planning Yulia Chand Comment UPDATED NOTES FAXED TO [facility] IN [place]. CM WILL CONTINUE TO FOLLOW AND ASSIST WITH DISCHARGE PLANNING/NEEDS. 01/13/21 13:17 CT Discharge Planning Yulia Jaramillotammy Comment CM has not had a return call from [facility]. I did speak with Shanice at [facility] and clinical has been faxed to them. CM will continue to follow and assist with discharge planning/needs. 01/13/21 12:55 CT Discharge Planning Yulia Chand Comment CM spoke with patient's . He signed NIKKI for [facility] in [place] or [facility]. I have called [facility] and left a voice mail with admission. I then received a call from patient's daughter and she would like a referral to [facility]. I will call them as well. [facility] - [phone] [facility] - [phone] FAX [phone] 01/12/21 9:56 CT Discharge Planning Yulia Chand Comment CM received notification from Julia that [facility] had declined admission "does not meet their criteria." I called the patient's and informed him and asked him to get us a couple of back up plans for rehab. He states he will come in today and ask for me and tell me his back up rehab facilities. CM will continue to follow and assist with discharge planning/needs. 01/08/21 14:39 CT Discharge Planning Louise Lim Comment Faxed referral to [facility] facility per family request Appended by Louise Lim on 01/08/2021 14:41 CDT: 01/07/21 1:24 CT Discharge Planning Nadine Magana Comment CM received information from patient's spouse that he would like to see about getting her to [facility]. [phone]. CM will get InTouch with them about a potential referral. CM will continue to follow and assist as needed with discharge planning needs. DCP Focus Questions & Answers [facility] KESHA ROSE MR#: [id number] /Age/Sex/Pbglon53-Dwl-70 /80/F /M Attending Physician Name: SERA [id number] Patient Account:[id number] [facility] Page -1 of 1 All edits/amendments must be made on the electronic document DICTATION DATE: 01/25/21757 PRINTER TECHNICIAN: ANDREW 01/25/21757 RPT#: [id number] DC DATE:01/22/21 STATUS: DIS IN [facility] [address] [place] [address] END OF REPORT
== END 2021-01-22 14:20 | DRG 673 ==
LOC: D.ER 05:37 → D.M2 09:24 → D.ICU 09:24 → D.M2 12-28 23:15
PROVIDERS: Emergency Medicine; Family Medicine; General Practice; Internal Medicine Hematology & Oncology; Internal Medicine Nephrology; Internal Medicine Pulmonary Disease; Radiology Diagnostic Radiology; ADMIT Family Medicine; ATTEND Family Medicine
PROC: 04VA3DZ Restriction of Left Renal Artery with Intraluminal Device, Percutaneous Approach (ICD-10-PCS; principal; 2020-12-08 09:14)
PROC: 5A09357 Assistance with Respiratory Ventilation, Less than 24 Consecutive Hours, Continuous Positive Airway Pressure (ICD-10-PCS; 2020-12-13)
PROC: 05HN33Z Insertion of Infusion Device into Left Internal Jugular Vein, Percutaneous Approach (ICD-10-PCS; 2020-12-17)
PROC: 05H633Z Insertion of Infusion Device into Left Subclavian Vein, Percutaneous Approach (ICD-10-PCS; 2020-12-18)
PROC: 07DR3ZX Extraction of Iliac Bone Marrow, Percutaneous Approach, Diagnostic (ICD-10-PCS; 2020-12-31)
DX: N28.89 Other specified disorders of kidney and ureter (principal); J18.9 Pneumonia, unspecified organism; J80 Acute respiratory distress syndrome; G93.41 Metabolic encephalopathy; I50.31 Acute diastolic (congestive) heart failure; I63.432 Cerebral infarction due to embolism of left posterior cerebral artery; I63.412 Cerebral infarction due to embolism of left middle cerebral artery; E43 Unspecified severe protein-calorie malnutrition; D62 Acute posthemorrhagic anemia; J45.901 Unspecified asthma with (acute) exacerbation; E87.0 Hyperosmolality and hypernatremia; D68.9 Coagulation defect, unspecified; N17.9 Acute kidney failure, unspecified; E11.65 Type 2 diabetes mellitus with hyperglycemia; I25.10 Atherosclerotic heart disease of native coronary artery without angina pectoris; Z95.5 Presence of coronary angioplasty implant and graft; E86.0 Dehydration; R58 Hemorrhage, not elsewhere classified; E87.6 Hypokalemia; I11.0 Hypertensive heart disease with heart failure; D69.6 Thrombocytopenia, unspecified

== ENCOUNTER 2021-01-22 15:00 | Inpatient (IN) | payer MEDICARE ==
[~2021-01-22] VITALS: Ht 152.4 cm; Wt 84.0 kg
--- NOTE | ~2021-01-22 | RHP ---
PATIENT: KESHA ROSE MEDICAL RECORD: [id number] ACCOUNT: [id number] LOCATION:[facility]1113 : 44 ADMISSION DATE: 01/22/21 REHABILITATION HISTORY AND PHYSICAL EXAMINATION POST ADMISSION PHYSICIAN EXAMINATION ADMITTING DIAGNOSES: Metabolic encephalopathy and possible CVA. HISTORY OF PRESENT ILLNESS: The patient is a 80-year-old female patient who resides independently with her spouse at home. Prior to coming to the Emergency Room on 12/08/2020, she arrived to the ER with reports of acute onset of left upper and lower quadrant abdominal pain with associated nausea and vomiting. The onset was several hours prior to this. The patient's left abdominal and flank pain was due to an active hemorrhage with a large hematoma measuring 11 cm in the greatest part of it at the lower pole of the left kidney. It was unclear if this was related to prior trauma or an underlying mass. She had urgent embolization. She was taken emergently to surgery was sent to the ICU postop. She has been 20 days in ICU, monitoring her blood counts and looking for an etiology of her thrombocytopenia. Bone biopsy was done on 12/25/2020 showing results to be consistent with a persistent large left perinephric hematoma. She did experience a change in mental status, became very somnolent on 12/22/2020. An MRI of her brain without contrast showed acute to subacute ischemia in the left cerebral hemisphere and a left middle cerebral artery territory. Findings are suggestion of embolic phenomenon. This is a confluent larger area of restricted diffusion in the left frontal lobe centered in the caudate head, but is also extremity into the left almonte radiata, which causes mild mass effect on the left frontal horn. This is probably related to the same acute to subacute ischemia as described, although a mass lesion was not entirely excluded. She did have severe atrophy, mild chronic microangiopathy and cerebral hemisphere. Speech therapy was ordered and PT was ordered. They have been working with her throughout her stay. She has been weaned from her BiPAP, is now on room air. On 12/29/2020, she was transferred to the floor to monitor her lab values. She still remains confused. She has got some dysphagia and Broca's aphasia. The patient has acute mental status changes secondary to this metabolic encephalopathy and underlying dementia. She has had multiple CVAs with embolic event involving the left middle cerebral artery territory and underlying atrophy with severe global volume loss. She has got leukocytosis including blood loss anemia, coagulopathy, thrombocytopenia, hypertension. She has got hyperglycemia, anxiety, depression, reflux, multiple comorbidities. The patient's skin integrity has been monitored closely. She has been treated secondary to an excoriation found from incontinence that she has now developed. She has decreased activity tolerance, strength, balance deficit, decreased range of motion, gait disturbance, impaired mobility, fall risk, self-care deficits. All these are requiring 24-hour care and monitoring. These are all barriers to her discharge home safely. Apparently, she lives in [place]. Spouse will require some education on how to assist her with her new deficits when they leave the rehabilitation. COMORBIDITIES: Include acute mental status changes, anemia, pneumonia, decrease in mobility, difficulty walking, diabetes, electrolyte abnormalities, hypertension, falls, fatigue, reflux, incontinence, safety precautions, thrombocytopenia. PAST MEDICAL HISTORY: Significant for vertigo, benign tumors, diabetes, coronary artery disease. She has had stent placement in the past, asthma, HISTORY AND PHYSICAL [id number] MILTON,KESHA reflux, arthritis, depression, anxiety. PAST SURGICAL HISTORY: Includes bilateral knee replacement, hysterectomy, breast lumpectomy, bladder surgery and cardiac stents. ALLERGIES: No known drug allergies. CURRENT MEDICATIONS: Bystolic 10 mg daily, prednisone 40 mg daily, she is on potassium 20 mEq daily, Protonix 40 mg daily, she is on a low-resistance sliding scale Humalog, Calmoseptine to apply b.i.d., Nystop powder to apply t.i.d., Cardene 30 mg b.i.d., Perforomist 20 mcg b.i.d., budesonide 0.5 mg b.i.d., polyethylene glycol 17 grams in 8 ounces of water daily, she is on the glucose replacement protocol and acetaminophen 650 every 6 hours p.r.n. HABITS: No current alcohol or tobacco use. FAMILY HISTORY: Noncontributory. SOCIAL HISTORY: The patient hopes to return back home with her spouse to get back to her prior level of functioning. REVIEW OF SYSTEMS: GENERAL: Does complain of weakness and fatigue. HEENT: Denies cold, cough or congestion. CARDIOVASCULAR: Denies any chest pain. PHYSICAL EXAMINATION: VITAL SIGNS: Stable, afebrile. GENERAL: Elderly female in no acute distress upon exam. HEENT: Normocephalic and atraumatic. Mucosa moist. NECK: Supple. No lymphadenopathy. LUNGS: Clear in upper hummel. No wheezing or rales. HEART: Regular rate and rhythm. No murmurs, rubs or gallops. ABDOMEN: Soft, benign, nondistended. Positive bowel sounds times 4. EXTREMITIES: No clubbing, cyanosis or edema. NEUROLOGIC: She is somewhat confused. She does have some inappropriate behaviors on her speech pattern and she is difficult to work with. LABORATORY DATA: Her white count is 5.9, H&H of 9.1 and 28.9 and platelet count is 29,000. Her sodium is 140, potassium 3.6, BUN and creatinine of 43 and 1.2, and blood sugar is noted to be 80. 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 The patient has potential to make improvement. We instituted the following multiple disciplinary therapies including, not limited to physical, occupational, respiratory, speech, nutritional services, prosthetics and orthotics. Given her complex medical condition and risk of further medical complications, rehabilitation services cannot be provided at a low level of care such as retirement facility. PLAN: 1. Admit to [facility] for inpatient therapy to include the following disciplines; A. Physical therapy to improve gait, all transfer skills and bed mobility to a HISTORY AND PHYSICAL [id number] KESHA ROSE modified independent level. B. Occupational therapy to improve activities of daily living. C. Case management to help with discharge planning and placement options. D. Nutrition to assist with nutritional needs. E. Rehabilitation nursing to assist in monitoring the patient's underlying medical condition and to assist with any type of bowel or bladder management. 2. The patient's current medications and Medicare will be continued. 3. Placed on standard fall precautions. 4. The patient's estimated length of stay is approximately 7-10 days. 5. We will discuss this patient carefully in staff meetings, watch her blood counts closely, her thrombocytopenia or involve heme-onc if necessary. TRANSINT:[id number] Voice Confirmation ID: [id number] DOCUMENT ID: [id number] 01/26/2021 Edited for zully SLATER. BRYON notes whether there has been none or any medical/functional change since admission: - No change since preadmission screen. BRYON attests patient continues to be appropriate for IRF: - Continues to be appropriate. ИРИНА JAMESON MD CC: [id number] DICTATION DATE: 01/23/21 1148 GEAR DESIGN ENGINEER: 01/23/21 1440 ADM IN [facility] [address] [place] [id number]
[~2021-01-22 15:00] MED LIST changes: +ACETAMINOPHEN325 MG PO; +BYSTOLIC5 MG PO; +CALMOSEPTINE OI71 GM TOPICAL; +DULERA 200 MCG8.8 GM INH; +HUMALOG 30100 UNITS/ SC; +K-DUR20 MEQ PO; +NICARDIPINE HCL30 MG PO; +NYSTATIN1 PWD TOPICAL; +PREDNISONE20 MG PO; +PROTONIX IV IV; +TYLENOL RC
--- NOTE | 2021-01-22 15:56 | NUR ---
PATIENT ADMITTED TO REHAB FROM ACUTE FLOOR. HER PCP IS DR. TESS JOHNSON. DISCHARGE PLANS ARE FOR HER TO RETURN TO HER HOME WITH FAMILY. WILL CONTINUE TO FOLLOW WITH PATIENT.
[2021-01-22 18:19] VITALS: BP 119/51; BMI 35.2
--- NOTE | 2021-01-22 20:15 | NUR ---
PATIENT TOILETED 2 PERSON ASSIST IN & OUT OF BED & WHEELCHAIR. NO VOID OR BM. PATIENT RETURNED TO LOW BED. ALARM ON. CALL LIGHT WITHIN REACH. WILL CONTINUE TO MONITOR.
--- NOTE | 2021-01-22 20:35 | NUR ---
PATIENT FSBS ON LEFT HAND DONE. REPEAT ON LEFT FINGER 340. INSULIN GIVEN PER 340 FSBS.
--- NOTE | 2021-01-22 21:05 | NUR ---
PATIENT ALARM GOING OFF. PATIENT 2 PERSON ASSIST INTO & OUT OF WHEELCHAIR. VOID ONLY. RETURNED TO LOW BED. ALARM ON. CALL LIGHT WITHIN REACH. WILL CONTINUE TO MONITOR.
--- NOTE | 2021-01-22 21:20 | NUR ---
PATIENT TOILETED WITH MOD 2 PERSON OUT & INTO WHEELCHAIR. PATIENT HAD VOID. RETURNED TO LOW BED. ALARM ON. CALL LIGHT WITHIN REACH. WILL CONTINUE TO MONITOR.
[2021-01-22 21:33] VITALS: BP 123/47
[2021-01-22 22:02] VITALS: BP 134/56
--- NOTE | 2021-01-23 01:47 | NUR ---
PATIENT EYES CLOSED. RESPIRATIONS 19 & EVEN. BED LOW. CALL LIGHT & BEDSIDE TABLE WITHIN REACH. ALARM ON. WILL CONTINUE TO MONITOR.
--- NOTE | 2021-01-23 02:45 | NUR ---
PATIENT CALL LIGHT N. PATIENT NEEDED TO USE TH RESTROOM. PATIENT MOD 2 PERSON ASSIST INTO & OUT OF WHEELCHAIR. MOD ASSIST ON & OF COMMODE. PATIENT HAD TO BE QUED HOW TO PLACE HANDS TO GET UP & DOWN FROM WHEELCHAIR & BED. RETURNED TO LOW BED. CALL LIGHT WITHIN REACH. WILL CONTINUE TO MONITOR.
--- NOTE | 2021-01-23 02:57 | NUR ---
I have reviewed this patient and I concur with the Shift Assessment completed by the Licensed Practical Nurse today this shift.
--- NOTE | 2021-01-23 06:05 | NUR ---
PATIENT AWAKE. FSBS 78. PATIENT GIVEN SNACK. BED LOW. ALARM ON. CALL LIGHT WITHIN REACH.
[2021-01-23 06:17] LABS: BASOPHILS 0 % (0-2); EOSINOPHILS 0.3 % (0-7); HEMATOCRIT 28.9 % (36.0-48.0); HEMOGLOBIN 9.1 g/dL (12-16); LYMPHOCYTE ABS# 0.78 10x3/uL (1.18-3.74); LYMPHOCYTES 13.3 % (15-50); MCHC 31.5 g/dL (31.0-37.0); MEAN PLATELET VOLUME 11.2 fL (7.4-10.4); MONOCYTES 10.1 % (2-11); NEUTROPHIL ABS# 4.42 10x3/uL (1.56-6.13); NEUTROPHILS 75.3 % (40-80); RBC 3.14 10x6/uL (4.00-5.40); RDW 16.6 % (11.5-14.5); WBC 5.9 10x3/uL (4.8-10.8)
[2021-01-23 06:18] LABS: PLATELET COUNT 29 10x3/uL (130-400)
--- NOTE | 2021-01-23 06:26 | NUR ---
PATIENT LABS BACK DR. JAMESON NOTIFIED ON ROUNDING SHEET. WILL NOTIFY DAY NURSE ABOUT CRITICAL PLATELET COUNT.
[2021-01-23 06:32] LABS: ANION GAP 11.4 mmol/L (8-16); CALCIUM 9.8 mg/dL (8.5-10.1); CARBON DIOXIDE 25.2 mmol/L (21.0-32.0); CREATININE - SERUM 1.2 mg/dL (0.6-1.3); POTASSIUM - SERUM 3.6 mmol/L (3.5-5.1)
[2021-01-23 08:53] VITALS: BP 114/72; BP 140/61
--- NOTE | 2021-01-23 08:58 | NUR ---
SHE IS VERY CONFUSED, REFUSING TO WORK WITH PT. REFUSES TO DO ANYTHING THAT SHE IS ASKED TO DO. SHE HAS A LEFT CENTRAL LINE. SHE IS LYING ACROSS THE BED THE WRONG WAY, SHE IS REFUSING TO MOVE. THE BED ALARM IS ON AND THE CHAIR ALARM IS IN PLACE WHEN IN THE WHEELCHAIR.
--- NOTE | 2021-01-23 10:26 | NUR ---
SHE IS HERE NOW. HE SAID SHE DOES NOT LISTEN TO HIM EITHER. HE SAYS SHE HAS KICKED HIM OUT OF HER ROOM ONE DAY AND DOES NOT REMEMBER THE NEXT DAY. HER IS IN THE ROOM WITH HER NOW. THE CALL LIGHT IS WITHIN REACH AND THE BED ALARM IS ON.
[2021-01-23 11:20] VITALS: Ht 152.4 cm; Wt 84.0 kg
[2021-01-23 19:00] VITALS: BP 127/69
--- NOTE | 2021-01-23 20:00 | NUR ---
PATIENT RECEIVED SITTING UP IN WHEELCHAIR. ASSESSMENT & VITAL SIGNS DONE. ALARM ON. CALL LIGHT WITHIN REACH. WILL CONTINUE TO MONITOR.
--- NOTE | 2021-01-24 01:54 | NUR ---
PATIENT ALARM SOUNDING. THIS NURSE & TECH ASSIST IN & OUT OF WHEELCHAIR. PATIENT CUED TO REACH UP TO BARS. PATIENT TURNED & SAT ON COMMODE. PATIENT BRIEF & PAD WET. NEW BRIEF & PAD ON PATIENT. WASHED HER HANDS. RETURNED TO LOW BED. ALARM ON. CALL LIGHT & BEDSIDE TABLE WITHIN REACH. WILL CONTINUE TO MONITOR.
[2021-01-24 08:00] VITALS: BP 147/54
--- NOTE | 2021-01-24 09:15 | NUR ---
SHE IS DOING BETTER TODAY. SHE WILL FOLLOW DIRECTIONS. SHE IS SETTING OFF THE BED AND CHAIR ALARM, SHE GOES BACK AND FORTH EVERY FEW HOURS. THE CALL LIGHT IS WITHIN REACH AND THE ALARM IS ON.
--- NOTE | 2021-01-24 14:51 | NUR ---
MEPILEX TO BOTH ELBOWS, THEY ARE RED, BUT THE SKIN IS INTACT.
[2021-01-24 19:00] VITALS: BP 124/661
--- NOTE | 2021-01-24 20:00 | NUR ---
PATIENT RECEIVED SITTING UP IN WHEELCHAIR. ASSESSMENT & VITAL SIGNS DONE. PATIENT TOILETED. VOID ONLY. RETURNED TO LOW BED. BEDSIDE TABLE & CALL LIGHT WITHIN REACH. ALARM ON. CALL LIGHT WITHIN REACH. WILL CONTINUE TO MONITOR.
--- NOTE | 2021-01-25 04:52 | NUR ---
I have reviewed this patient and I concur with the Shift Assessment completed by the Licensed Practical Nurse today this shift.
[2021-01-25 07:03] LABS: BASOPHILS 0 % (0-2); EOSINOPHILS 0.7 % (0-7); HEMATOCRIT 30.3 % (36.0-48.0); HEMOGLOBIN 9.7 g/dL (12-16); IMMATURE GRANULOCYTES 1.2 % (0-5); LYMPHOCYTE ABS# 1.23 10x3/uL (1.18-3.74); LYMPHOCYTES 18.1 % (15-50); MCH 29.6 pg (26.0-34.0); MCV 92.4 fL (80.0-100.0); MEAN PLATELET VOLUME 11.7 fL (7.4-10.4); MONOCYTES 8.8 % (2-11); NEUTROPHIL ABS# 4.85 10x3/uL (1.56-6.13); NEUTROPHILS 71.2 % (40-80); RBC 3.28 10x6/uL (4.00-5.40); RDW 16.6 % (11.5-14.5); WBC 6.8 10x3/uL (4.8-10.8)
[2021-01-25 07:06] LABS: PLATELET COUNT 34 10x3/uL (130-400)
[2021-01-25 07:10] LABS: CALCIUM 9.5 mg/dL (8.5-10.1); CARBON DIOXIDE 23.4 mmol/L (21.0-32.0); CREATININE - SERUM 1.3 mg/dL (0.6-1.3); POTASSIUM - SERUM 3.4 mmol/L (3.5-5.1)
[2021-01-25 08:00] VITALS: BP 152/62
--- NOTE | 2021-01-25 08:00 | NUR ---
PT RESTING IN BED WITH EYES OPEN CALL LIGHT IN REACH WILL MONITER
[2021-01-25 11:25] LABS: PLATELET ESTIMATE DECREASED; ROULEAUX OCC
--- NOTE | 2021-01-25 13:39 | NUR ---
Nutrition Follow-up: Patient with confusion and refusing care per MD notes. Diet: Diabetic PO intake: ~42% average x last 6 meals Last BM: 01/25/21 Wt: 180# (01/23/21) Meds noted: prednisone, k-dur, SSI Labs noted: K 3.4(L), BUN 37(H), GFR 42(L), Glu 116(H) Recommend continue current diet. Will continue to honor food preferences within diet restrictions. Will add Glucerna TID with meals. Recommend encouraged PO intake by nursing staff at meal times. RD will follow-up within 3-4 days.
--- NOTE | 2021-01-25 16:33 | NUR ---
CLINICAL UPDATES FAXED TO MAURICE AT [facility] -[phone], AUTH. # [id number] WITH FAX CONFORMATION RECIEVED. WILL CONTINUE TO FOLLOW WITH PATIENT.
--- NOTE | 2021-01-25 17:56 | NUR ---
PT RESTING IN BED WITH EYES OPEN CALL LIGHT IN REACH WILL MONITER
--- NOTE | 2021-01-25 19:20 | NUR ---
PT LAYING QUIETLY IN BED, NO IMMEDIATE NEEDS NOTED, FLUIDS/CL WITHIN REACH
[2021-01-25 19:33] VITALS: BP 115/49
--- NOTE | 2021-01-26 07:30 | NUR ---
PT RESTING IN BED WITH EYES OPEN CALL LIGHT IN REACH WILL MONITER
[2021-01-26 08:01] VITALS: BP 155/84
--- NOTE | 2021-01-26 18:12 | NUR ---
PT RESTING IN BED WITH EYES OPEN CALL LIGHT IN REACH WILL MONITER
--- NOTE | 2021-01-26 18:45 | NUR ---
BEDSIDE REPORT COMPLETE. RECEIVED PT SITTING UP ON SIDE OF BED. ALERT TO SELF ONLY. REORIENTED TO PLACE AND TIME. DENIES ANY NEEDS OR PAIN. NO IV OR OXYGEN NOTED. NO DISTRESS NOTED. PT HAS POOR MEMORY RECALL. SHAUNNA ALARM ON. CALL LIGHT AND WATER WITHIN REACH. FALL PRECAUTIONS IN PLACE. CPOC
[2021-01-26 20:30] VITALS: BP 152/70
--- NOTE | 2021-01-26 21:28 | NUR ---
PT REFUSED INSULIN, CALMOSEPTINE AND NYSTATIN POWDER. PT ATTEMPTED TO REFUSE PO MEDICATION BUT WAS ABLE TO GET PT TO UNDERSTAND IMPORTANCE OF TAKING MEDICATION. PT IS VERBALLY DISRUPTIVE AND DEMANDING. POOR MEMORY RECALL. PT STATES SHE JUST WANTS TO GO HOME.
--- NOTE | 2021-01-27 01:33 | NUR ---
PT SITTING UP IN W/C AWAKE. PT HAS BEEN RESTLESS AND IMPULSIVE ALL NIGHT. PT HAS NOT SLEPT ANY THIS SHIFT. CONTINUES TO RUMAGE THRU PERSONAL ITEMS AND MOVE THEM FROM ONE PLACE TO ANOTHER. DENIES ANY PAIN. SHAUNNA ALARM ON.
--- NOTE | 2021-01-27 06:30 | NUR ---
PT LYING IN BED SUPINE. PAIN MEDICATION ADMININSTERED PER PT REQUEST FOR 9/10 LEFT KNEE THROBBING PAIN. NO OTHER NEEDS VOICED. CALL LIGHT WITHIN REACH.
--- NOTE | 2021-01-27 06:35 | NUR ---
PT SITTING UP IN BED AWAKE. PT HAS ONLY SLEPT 40 MINUTES THE ENTIRE NIGHT. PT IS CONFUSED AND WANTS TO GO HOME. PT DENIES ANY PAIN OR NEEDS. TOILETING NEEDS MET. CALL LIGHT WITHIN REACH. SHAUNNA ALARM ON.
--- NOTE | 2021-01-27 07:55 | NUR ---
FREQUENTLY GETTING UP .PT HAS BEEN UP W/O ASSIST AND ALARMS RINGING 5 TIMES IN LAST 30 MINS. NOTIFIED TO COME AND SIT WITH HER FOR SAFETY.
[2021-01-27 07:58] VITALS: BP 158/57
--- NOTE | 2021-01-27 10:00 | NUR ---
IS HERE SITTING WITH PATIENT.MUCH CALMER AND NOT GETTING UP W/O HELP.
--- NOTE | 2021-01-27 13:45 | NUR ---
CARE TEAM MEETING: PATIENT SPOUSE ATTENDED THE MEETING. HIS QUESTIONS AND CONCERNS WERE ADDRESSED. WILL CONTINUE TO FOLLOW WITH PATIENT. TENATIVE DC DATE IS 02/09/21.
--- NOTE | 2021-01-27 14:11 | NUR ---
NUTRITION FOLLOW UP: COMMENTS: Patient present with confusion during visit this am. Patient with good PO intake and ate 100% of breakfast this am. DIET: Diabetic Diet SUPPLEMENT: Glucerna with meals PO INTAKE: 74% avg for last 10 meals BM: x 1 on 01/27 WEIGHT: 185 lbs on 01/22 SIG MEDS: KCl, Protonix, Nystatin, Humalog SIG LABS: K-3.4(L), BUN-37(H) RECOMMENDATIONS: Continue DM diet as toletated Continue Glucerna with meals Assistance with meals if needed RD to follow up within 7 days
--- NOTE | 2021-01-27 19:30 | NUR ---
AWAKE AND ALERT. SITTING IN WHEELCHAIR IN ROOM. CONFUSUED AND DISIORIENTED. ORIENTED TO SELF ONLY. RESPIRAIONS UNLABORED. NO DISTRESS NOTED.CALL LIGHT IN REACH.
[2021-01-27 19:51] VITALS: BP 142/55
--- NOTE | 2021-01-27 22:00 | NUR ---
SLEPT 2 HOURS. NOW UP AND NOW CONSTANTLY TO CHAIR AND BACK TO BED. TAKES PANTS ON AND OFF. EASILY AGIATATED WHEN ASSISTANCE OFFERED. WEARING PANTS DOWN AROUND THIGHS AND REFUSES TO PULL UP.
--- NOTE | 2021-01-28 05:37 | NUR ---
SLEPT A TOTAL OF 6 HOURS. AWAKE NOW. REMAINS CONFUSED. INCONTINENT OF URINE. ASSISTED TO BATHROOM AND CLEANED UP AND BED LINENS CHANGED.
--- NOTE | 2021-01-28 06:33 | NUR ---
BLOOD SUGAR 62. 8 OUNCES ORANGE JUICE AND CHINEDU CRACKERS GIVEN PO.
--- NOTE | 2021-01-28 08:00 | NUR ---
SHIFT ASSMT COMPLETED,
[2021-01-28 08:27] VITALS: BP 131/46
--- NOTE | 2021-01-28 19:24 | NUR ---
AWAKE AND ALERT. RESPIRATIONS UNLABORED. DRESSING INTACT TO LEFT KNEE. C/O VAGINAL ITCHING. MICONAZOLE ORDERED.
--- NOTE | 2021-01-28 19:27 | NUR ---
AWAKE AND ALERT. SITTING IN WHEELCHAIR TALKING ON PHONE. RESPIRAITONS UNLABORED. CONFUSED. SAFETY MEASURES IN PLACE.
[2021-01-28 20:19] VITALS: BP 129/51
--- NOTE | 2021-01-29 04:51 | NUR ---
QUIET HOURS. NO ACUTE CHANGES IN CONDITION THIS SHIFT. RESTING IN BED WITH NO DISTRESS NOTED.
[2021-01-29 06:17] LABS: BASOPHILS 0 % (0-2); EOSINOPHILS 0.6 % (0-7); HEMATOCRIT 27.7 % (36.0-48.0); HEMOGLOBIN 8.8 g/dL (12-16); IMMATURE GRANULOCYTES 1.2 % (0-5); LYMPHOCYTE ABS# 0.71 10x3/uL (1.18-3.74); LYMPHOCYTES 14.1 % (15-50); MCH 29.3 pg (26.0-34.0); MCHC 31.8 g/dL (31.0-37.0); MCV 92.3 fL (80.0-100.0); MEAN PLATELET VOLUME 11.8 fL (7.4-10.4); MONOCYTES 9.3 % (2-11); NEUTROPHIL ABS# 3.78 10x3/uL (1.56-6.13); NEUTROPHILS 74.8 % (40-80); RDW 16.4 % (11.5-14.5); WBC 5.1 10x3/uL (4.8-10.8)
[2021-01-29 06:18] LABS: PLATELET COUNT 21 10x3/uL (130-400)
--- NOTE | 2021-01-29 06:21 | NUR ---
CRITICAL PLATELETS RESULTED. MESSAGE LEFT ON ROUNDING SHEET FOR DR JAMESON.
[2021-01-29 06:31] LABS: ANION GAP 8.6 mmol/L (8-16); CALCIUM 9.5 mg/dL (8.5-10.1); CARBON DIOXIDE 26.1 mmol/L (21.0-32.0); POTASSIUM - SERUM 3.7 mmol/L (3.5-5.1)
--- NOTE | 2021-01-29 10:00 | NUR ---
SHE IS CONFUSED. SHE IS WORKING WITH OT, DOING HER HAIR. SHE PUT HER MEDICATIONS IN HER POCKET AND THEN PUT 3 OF THEM IN THE TRASH. I GOT NEW MEDICATIONS AND PUT THEM IN HER MOUTH AND SHE TOOK THEM. THE CALL LIGHT IS WITHIN REACH AND THE BED ALARM IS ON.
[2021-01-29 11:03] VITALS: BP 159/43
[2021-01-29 21:18] VITALS: BP 132/41
[2021-01-30 10:19] VITALS: BP 157/52
--- NOTE | 2021-01-30 12:04 | NUR ---
SITTING UP IN BED FOR LUNCH. HAS BEEN UP ALL MORNING. IS STILL GROSSLY CONFUSED BUT COOPERATIVE. POOR RECALL ALSO. CALL LIGHT IN REACH
--- NOTE | 2021-01-30 18:50 | NUR ---
BEDSIDE REPORT COMPLETE. RECEIVED PT SITTIN UP IN BED. ALERT AND ORIENTED X2. REORIENTED TO TIME AND SITUATION. DENIES ANY NEEDS OR PAIN. NO DISTRESS NOTED. NO IV OR OXYGEN. CALL LIGHT AND WATER WITHIN REACH. FALL PRECAUTIONS IN PLACE. CPOC
[2021-01-30 19:00] VITALS: BP 142/47
--- NOTE | 2021-01-30 21:33 | NUR ---
PT REFUSED ALL MEDS, PT STATES "I AM SO TIRED I JUST WANT TO SLEEP".
--- NOTE | 2021-01-31 03:53 | NUR ---
PATIENT EYES CLOSED. RESPIRATIONS 18 & EVEN. ALARM ON. CALL LIGHT & BESIDE TABLE WITHIN REACH. SLEEP AIDE EFFECTIVE. WILL CONTINUE TO MONITOR.
[2021-01-31 11:46] VITALS: BP 133/61
[2021-01-31 19:00] VITALS: BP 166/62
--- NOTE | 2021-01-31 19:30 | NUR ---
PATIENT RECEIVED SITTING UP IN BED. ASSESSMEMT & VITAL SIGNS DONE. PLEASANTLY CONFUSED. CHANGED OUT OF DAY CLOTHES INTO GOWN. PATIENT TOILETED. STANDBY ASSIST. BM & VOID. RETURNED TO LOW BED. ALARM ON. CALL LIGHT & SIDETABLE WITHIN REACH. WILL CONTINUE TO MONITOR.
--- NOTE | 2021-02-01 03:27 | NUR ---
I have reviewed this patient and I concur with the Shift Assessment completed by the Licensed Practical Nurse today this shift.
--- NOTE | 2021-02-01 03:41 | NUR ---
PATIENT EYES CLOSED. RESPIRATIONS 18 & EVEN. BED LOW. ALARM ON. CALL LIGTH WITHIN REACH. WILL CONTINUE TO MONITOR.
[2021-02-01 08:00] VITALS: BP 139/56
--- NOTE | 2021-02-01 08:00 | NUR ---
SHE IS SETTING UP IN THE BED EATING BREAKFAST. SHE TOOK HER MEDICATIONS WITH A LITTLE TROUBLE. AFTER EACH PILL SHE WOULD ASK IF SHE HAD TO TAKE IT. THE CALL LIGHT IS WITHIN REACH AND THE BED ALARM IS ON.
--- NOTE | 2021-02-01 10:44 | NUR ---
SHE WAS WALKING WITH PT AND STATES "SHE COULD NOT SEE" SHE SAT IN THE WHEELCHAIR. VS TAKEN IN THE GYM 89/43. 80, 95 % ON ROOM AIR. TAKEN BACK TO HER ROOM AND EKG WAS DONE, BP 107/58, 84. LABS ORDERED. THE CALL LIGHT IS WITHIN REACH AND THE BED ALARM IS ON. THE PATIENT STATES "I AM SLEEPY". WILL MONITOR.
--- NOTE | 2021-02-01 11:15 | NUR ---
SHE IS LYING IN BED, SHE SAYS SHE FEELS BETTER, JUST WANTS TO SLEEP. FINGER STICK DONE WAS 135. THE CALL LIGHT IS WITHIN REACH AND THE BED ALARM IS ON.
[2021-02-01 11:52] LABS: CKMB 1.6 U/L (0.0-3.6); CREATINE KINASE 11 UL (21-215); TROPONIN-I 0.042 ng/mL (0.000-0.060)
--- NOTE | 2021-02-01 12:00 | NUR ---
SHE IS FEELING BETTER, SHE IS GOING BACK FROM THE BED TO THE WHEELCHAIR, SETTING OFF THE ALARMS. THE CALL LIGHT IS WITHIN REACH AND THE BED ALARM IS ON.
--- NOTE | 2021-02-01 12:06 | NUR ---
NUTRITION REASSESSMENT/FOLLOW UP: COMMENTS: Patient out of room for PT during visit this am. Patient ate 100% of breakfast this morning. Per MD, patient present with no new complaints and confusion. DIET: Diabetic Diet SUPPLEMENT: Glucerna with Meals PO INTAKE: 100% x 1 meal WEIGHT: 180 lbs on 01/23 BM: x 1 on 02/01 SIG LABS: On 01/29- Cl-109(H), BUN-27(H) POC Glucose: 69, 222, 277, 115, 75, 177 SIG MEDS: Prednisone, KCl, Protnoix, Nystatin ESTIMATED NEEDS (BASED ON ADJUSTED BODY WEIGHT): 0102-5189 kcal/day (25-30 kcal/kg Adj) 60-72 g protein/day (1.0-1.2 g/kg) 9995-5983 cc fluid (1 cc/kcal/day) RECOMMENDATIONS: Continue DM diet as tolerated Continue Glucerna with meals Assitance with meals if needed RD to follow up within 7 days
--- NOTE | 2021-02-01 19:29 | NUR ---
AWAKE AND ALERT. RESTING IN BED WITH RESPIRAIONS UNLABORED. NOTED CONFUSED. NO ACUTE DISTRESS NOTED. CALL LIGHT IN REACH.
[2021-02-01 19:56] VITALS: BP 106/52
--- NOTE | 2021-02-02 05:17 | NUR ---
QUIET HOURS. NO ACUTE CHANGES IN CONDITION THIS SHIFT. RESTING IN BED WITH NO DISTRESS NOTED.
[2021-02-02 05:24] LABS: BASOPHILS 0 % (0-2); EOSINOPHILS 0.5 % (0-7); HEMATOCRIT 30.9 % (36.0-48.0); HEMOGLOBIN 9.5 g/dL (12-16); IMMATURE GRANULOCYTES 0.9 % (0-5); LYMPHOCYTE ABS# 1.16 10x3/uL (1.18-3.74); LYMPHOCYTES 20.6 % (15-50); MCH 29.1 pg (26.0-34.0); MCHC 30.7 g/dL (31.0-37.0); MCV 94.8 fL (80.0-100.0); MEAN PLATELET VOLUME 10.9 fL (7.4-10.4); NEUTROPHIL ABS# 3.93 10x3/uL (1.56-6.13); RBC 3.26 10x6/uL (4.00-5.40); RDW 16.8 % (11.5-14.5); WBC 5.6 10x3/uL (4.8-10.8)
[2021-02-02 05:33] LABS: PLATELET COUNT 28 10x3/uL (130-400)
--- NOTE | 2021-02-02 05:34 | NUR ---
CRITICAL PLATELETS OF 28. MESSAGE LEFT FOR DR JAMESON ON ROUNDING SHEET.
[2021-02-02 05:53] LABS: ANION GAP 10.6 mmol/L (8-16); CALCIUM 9.6 mg/dL (8.5-10.1); CARBON DIOXIDE 26.2 mmol/L (21.0-32.0); POTASSIUM - SERUM 3.8 mmol/L (3.5-5.1)
--- NOTE | 2021-02-02 07:30 | NUR ---
SHE IS SETTING UP IN THE WHEELCHAIR. WE CAN NOT FIND HER GLASSES AT THIS TIME. THE CHAIR ALARM IS ON AND THE CALL LIGHT IS WITHIN REACH.
[2021-02-02 07:45] VITALS: BP 138/54
[2021-02-02 21:22] VITALS: BP 139/66
--- NOTE | 2021-02-03 03:09 | NUR ---
PT RESTING WITH EYES CLOSED. RESPIRATIONS EVEN AND UNLABORED. HER BED ALARM IS ON, BED IS LOW AND CALL LIGHT IS WITHIN REACH.
[2021-02-03 07:57] LABS: CALCIUM 9.2 mg/dL (8.5-10.1); CARBON DIOXIDE 26.7 mmol/L (21.0-32.0); CREATININE - SERUM 1.1 mg/dL (0.6-1.3); POTASSIUM - SERUM 3.7 mmol/L (3.5-5.1)
[2021-02-03 07:59] LABS: BASOPHILS 0.2 % (0-2); EOSINOPHILS 0.7 % (0-7); HEMATOCRIT 30.9 % (36.0-48.0); HEMOGLOBIN 9.4 g/dL (12-16); IMMATURE GRANULOCYTES 1.2 % (0-5); LYMPHOCYTE ABS# 1.28 10x3/uL (1.18-3.74); LYMPHOCYTES 21.8 % (15-50); MCH 29.1 pg (26.0-34.0); MCHC 30.4 g/dL (31.0-37.0); MCV 95.7 fL (80.0-100.0); MEAN PLATELET VOLUME 11.6 fL (7.4-10.4); MONOCYTES 8.7 % (2-11); NEUTROPHIL ABS# 3.97 10x3/uL (1.56-6.13); NEUTROPHILS 67.4 % (40-80); PLATELET COUNT 32 10x3/uL (130-400); RBC 3.23 10x6/uL (4.00-5.40); RDW 16.8 % (11.5-14.5); WBC 5.9 10x3/uL (4.8-10.8)
[2021-02-03 11:25] VITALS: BP 151/67
--- NOTE | 2021-02-03 14:03 | NUR ---
CLINICAL UPDATES FAXED TO MAURICE AT [facility] , AUTH. # [id number] WITH A TENATIVE DC DATE BEING 02/08/21. WILL CONTINUE TO FOLLOW WITH PATIENT.
[2021-02-03 14:04] LABS: PLATELET ESTIMATE DECREASED
[2021-02-03 14:05] LABS: ROULEAUX OCC
--- NOTE | 2021-02-03 16:47 | NUR ---
care team meeting: patient spouse attended the meeting. his questions and concerns were addressed. patient tenative dc ana cristina eis 02/08/21. patient and spouse is moving to [place] with daughter. will continue to follow with patient.
--- NOTE | 2021-02-03 18:55 | NUR ---
BEDSIDE REPORT COMPLETE. RECEIVED PT SITTING UP IN W/C. ALERT AND ORIENTED X3. NO IV OR OXYGEN NOTED. SHAUNNA ALARM ON BED AND W/C WORKING PROPERLY. PT IS IMPULSIVE AND DOES NOT ALWAYS USE CALL LIGHT. EDUCATED PT ON IMPORTANCE OF USING CALL LIGHT FOR ASSISTANCE. DENIES ANY NEEDS OR PAIN. CALL LIGHT AND WATER WITHIN REACH. FALL PRECAUTIONS IN PLACE. CPOC
[2021-02-03 21:27] VITALS: BP 126/61
--- NOTE | 2021-02-04 00:06 | NUR ---
PT LYING IN BED EYES CLOSED RESTING. RR EVEN AND UNLABORED. CALL LIGHT WITHIN REACH. SHAUNNA ALARM ON
--- NOTE | 2021-02-04 03:21 | NUR ---
PT LYING IN BED ON RIGHT SIDE EYES CLOSED RESTING. RR EVEN AND UNLABORED. CALL LIGHT WITHIN REACH
--- NOTE | 2021-02-04 06:21 | NUR ---
PT SITTING UP IN BED EATING APPLESAUCE. FSBS 74. DENIES ANY NEEDS OR PAIN. NO ACUTE CHANGES IN CONDITION THIS SHIFT. CALL LIGHT WITHIN REACH. SHAUNNA ALARM ON. CPOC
--- NOTE | 2021-02-04 07:31 | NUR ---
PT RESTING IN BED WITH EYES OPEN CALL LIGHT IN REACH WILL MONITER
[2021-02-04 08:10] VITALS: BP 113/65
--- NOTE | 2021-02-04 11:31 | NUR ---
SPOKE WITH MAURICE FROM [facility] AND SHE INFORMS ME THAT PATIENT HAS APPROVED DAYS UNTIL 02/08/21 AND IF MORE DAYS ARE NEEDED SEND UPDATE ON 02/08/21. WILL CONTINUE TO FOLLOW WITH PATIENT.
--- NOTE | 2021-02-04 18:41 | NUR ---
PT RESTING IN BED WITH EYES OPEN CALL LIGHT IN REACH WILL MONITER
--- NOTE | 2021-02-04 18:52 | NUR ---
BEDSIDE REPORT COMPLETE. RECEIVED PT SITTING UP IN W/C. ALERT AND ORIENTED X3. REORIENTED TO SITUATION. DENIES ANY PAIN OR NEEDS. NO DISTRESS NOTED. CALL LIGHT AND WATER WITHIN REACH. SHAUNNA ALARM ON. CPOC
[2021-02-04 19:54] VITALS: BP 115/67
--- NOTE | 2021-02-05 06:40 | NUR ---
PT SITTING UP IN W/C WATCHING TV. DENIES ANY NEEDS OR PAIN. NO DISTRESS NOTED. EARLY AM SNACK PROVIDED(APPLESAUCE AND 4 OZ AJ) FSBS 88. CALL LIGHT WITHIN REACH. CHAIR ALARM ON.
[2021-02-05 08:00] VITALS: BP 171/65
--- NOTE | 2021-02-05 12:30 | NUR ---
NUTRITION FOLLOW UP: INTERVIEW: Met with patient this AM. She stated her appetite has been good and she has been loving the food. She denied any recent nausea, vomiting, diarrhea, constipation, and denied any new issues chewing/swallowing her food. She stated she wanting to stop receiving Glucerna with her meals. DIET: Diabetic Diet PO INTAKE: 88% avg for last 9 meals WEIGHT: 180 lbs on 01/23 (no new weight) BM: x 1 on 02/04 SIG MEDS: KCl, Protonix, Nystatin, Humalog SIG LABS: On 02/03: Cl-110(H), BUN-23(H) RECOMMENDATIONS: Continue DM diet as tolerated Discontinue Glucerna with meals RD to follow up on 02/09
--- NOTE | 2021-02-05 19:31 | NUR ---
AWAKE AND ALERT. RESTING IN BED WITH RESPRIATIONS UNLABORED. NO DISTRESS NOTED. CALL LIGHT IN REACH.
[2021-02-05 20:18] VITALS: BP 147/67
--- NOTE | 2021-02-06 05:14 | NUR ---
QUIET HOURS. NO ACUTE CHANGES IN CONDITION THIS SHIFT. RESTING IN BED WITH NO DISTRESS NOTED.
--- NOTE | 2021-02-06 08:00 | NUR ---
SHIFT ASSMT COMPLETED.CL IN REACH.UP OOB TO WC FOR BREAKFAST.
[2021-02-06 09:32] VITALS: BP 189/71
--- NOTE | 2021-02-06 12:00 | NUR ---
UP OOB FOR LUNCH. VISITING.
[2021-02-06 19:12] VITALS: BP 143/70
--- NOTE | 2021-02-06 19:21 | NUR ---
AWAKE AND ALERT. RESTING IN BED WITH RESPIRATIONS UNLABORED. NO DISTRESS NOTED. CALL LIGHT IN REACH.
--- NOTE | 2021-02-07 05:21 | NUR ---
QUIET HOURS. NO ACUTE CHANGES IN CONDITION THIS SHIFT. RESTING IN BED WITH NO DISTRESS NOTED.
--- NOTE | 2021-02-07 06:20 | NUR ---
BLOOD SUGAR 73. ORANGE JUICE AND CRACKERS GIVEN. ALERT AND SKIN WARM AND DRY.
[2021-02-07 08:00] VITALS: BP 151/53
--- NOTE | 2021-02-07 08:00 | NUR ---
SHIFT ASSMT COMPLETED.CL IN REACH.ANXIOUS TODAY.EXCITED FOR DISCHARGE.
--- NOTE | 2021-02-07 12:00 | NUR ---
UP OOB TO WC.LUNCH GIVEN.
[2021-02-07 19:00] VITALS: BP 119/49
--- NOTE | 2021-02-07 19:37 | NUR ---
AWAKE AND ALERT. UP IN WHEELCHAIR IN HALLWAY. STATES SHE IS EXCITED TO GO HOME TOMORROW. RESPIRATIONS UNLABORED. NO DISTRESS NOTED.
--- NOTE | 2021-02-08 05:27 | NUR ---
AWAKE AND ALERT. UP IN WHEELCHAIR. EXCITED TO BE DISCHARGED THIS AM. NO DISTRESS NOTED.
[2021-02-08 08:09] VITALS: BP 163/70
--- NOTE | 2021-02-08 10:12 | NUR ---
DC WITH . MEDS CALLED IN TO [facility] AT REQUEST. REVIEWED MEDS WITH .
--- NOTE | 2021-02-08 10:44 | NUR ---
MEDS CALLED INTO [facility] AT [address] [facility]. [phone]. SPOKE WITH PHARMACIST JEFFREY
--- NOTE | 2021-02-09 11:23 | NUR ---
PATIENT DISCHARGE HOME WITH FAMILY. PATIENT IS MOVING TO [place] WITH HER SPOUSE AND DAUGHTER. DISCHARGE RECORDS HAVE BEEN FAXED TO MAURICE/[facility] AUTH. # [id number] AND TO PATIENT NEW PCP AND REVIEWED WITH PATIENT FAMILY.
== END 2021-02-08 09:15 | disposition home or self-care (01) | DRG 56 ==
LOC: D.REHAB 15:00
PROVIDERS: ADMIT Emergency Medicine; ATTEND Emergency Medicine
DX: I69.30 Unspecified sequelae of cerebral infarction (principal); G93.41 Metabolic encephalopathy; J69.0 Pneumonitis due to inhalation of food and vomit; D64.9 Anemia, unspecified; R26.2 Difficulty in walking, not elsewhere classified; E11.9 Type 2 diabetes mellitus without complications; E87.8 Other disorders of electrolyte and fluid balance, not elsewhere classified; I10 Essential (primary) hypertension; R53.83 Other fatigue; K21.9 Gastro-esophageal reflux disease without esophagitis; R32 Unspecified urinary incontinence; D69.6 Thrombocytopenia, unspecified; F03.90 Unspecified dementia, unspecified severity, without behavioral disturbance, psychotic disturbance, mood disturbance, and anxiety; R13.10 Dysphagia, unspecified